=== PATIENT | male | born 1945 | race Caucasian/White ===

== ENCOUNTER 2019-04-17 12:59 | Inpatient (IN) | payer MEDICARE, OTHER ==
[~2019-04-17] VITALS: Ht 167.6 cm; Wt 70.8 kg
--- NOTE | 2019-04-17 13:22 | NUR ---
Fever since this morning. ALSO REPORTS CHILLS. DENIES SOB, DIZZINESS, WEAKNESS, N/V. DENIES PAIN. NO ACUTE DISTRESS NOTED. AOX4, TACHYCARDIC, AMBULATORY, RR EVEN AND UNLABORED ON RA. ON MONITOR AND READY FOR EVAL.
--- NOTE | 2019-04-17 13:26 | NUR ---
Boo bourne in [facility] - 04/17/19 at 1326 by JANICE 110-HAN.
[2019-04-17] MEDS ORDERED: ACETAMINOPHEN ES 500 MG TABLET ONE (13:27)
[2019-04-17] MEDS ORDERED: ACETAMINOPHEN ES 500 MG TABLET PO ONE (13:30)
[2019-04-17] MEDS ORDERED: IV NS 0.9% 1,000 ML BAG IV ONE (13:30)
[2019-04-17 13:50] LABS: BASOPHILS # (AUTO) 0.1 /CMM (0.0-0.2); BASOPHILS % (AUTO) 0.4 % (0.0-2.0); EOSINOPHILS % (AUTO) 0.1 % (0.0-6.0); HEMATOCRIT 34 % (39-51); HEMOGLOBIN 11.3 g/dL (13.5-17.5); LYMPHOCYTES # (AUTO) 0.8 /CMM (0.8-4.8); LYMPHOCYTES % (AUTO) 4.4 % (20.0-44.0); MEAN CORPUSCULAR HGB CONC 33 g/dl (31.0-36.0); MEAN CORPUSCULAR VOLUME 87 fL (80-96); MONOCYTES # (AUTO) 1.5 /CMM (0.1-1.30); MONOCYTES % (AUTO) 8.4 % (2.0-12.0); NEUTROPHILS # (AUTO) 15.9 /CMM (1.8-8.9); NEUTROPHILS % (AUTO) 86.7 % (43.0-81.0); PLATELET COUNT (AUTO) 296 /CMM (150-450); RED BLOOD CELL COUNT(AUTO) 3.93 MIL/uL (4.5-6.0); WHITE BLOOD COUNT (AUTO) 18.3 K/uL (4.3-11.0)
[2019-04-17 13:56] LABS: CALCIUM, SERUM 8.7 mg/dL (8.5-10.1); CARBON DIOXIDE 25 mmol/L (21-32); CHLORIDE 91 mmol/L (98-107); CREATININE 0.9 mg/dL (0.6-1.3); GLUCOSE 143 mg/dL (74-106); POTASSIUM 4.2 mmol/L (3.5-5.1); SODIUM SERUM 125 mmol/L (136-145); UREA NITROGEN, BLOOD 14 mg/dL (7-18)
[2019-04-17] MEDS ORDERED: LOSA50TA39 PO (14:01)
[2019-04-17] MEDS ORDERED: ASPI-1152 PO (14:01)
[2019-04-17] MEDS ORDERED: METO-358 PO (14:01)
[2019-04-17] MEDS ORDERED: LORA-259 PO (14:01)
[2019-04-17] MEDS ORDERED: ATOR40TA PO (14:01)
[2019-04-17] MEDS ORDERED: AMLO10TA7 PO (14:01)
[2019-04-17 14:02] LABS: ALANINE AMINOTRANSFERASE 44 U/L (12-78); ALBUMIN 2.7 g/dL (3.4-5.0); ALKALINE PHOSPHATASE 107 U/L (46-116); ASPARTATE AMINOTRANSFERASE 55 U/L (15-37); BILIRUBIN,DIRECT 0.1 mg/dL (0.0-0.2); BILIRUBIN,TOTAL 0.5 mg/dL (0.2-1.0); TOTAL PROTEIN, SERUM 7.3 g/dL (6.4-8.2)
--- NOTE | 2019-04-17 14:25 | NUR ---
URINE SENT TO STAT LAB
[2019-04-17 14:30] LABS: APPEARANCE,URINE Clear (CLEAR); BILIRUBIN,URINE Negative (NEGATIVE); BLOOD, URINE Large Ery/uL (NEGATIVE); COLOR,URINE Yellow (YELLOW); KETONES,URINE Negative (NEGATIVE); LEUKOCYTE ESTERASE ,URINE Negative (NEGATIVE); NITRITE, URINE Negative (NEGATIVE); PH,URINE 6.5 (5.0-8.0); PROTEIN,URINE >=300 mg/dl (NEGATIVE); UGLUCOSE Negative (NEGATIVE); UROBILINOGEN,URINE 0.2 EU/dL (0.2)
[2019-04-17] MEDS ORDERED: CEFTRIAXONE 1GM BAG (ER ONLY) 1 GM/50 ML PIGGYBACK IV ONE (14:30)
[2019-04-17] MEDS ORDERED: HYDROCODONE/APAP 5/325MG 1 EACH TABLET PO PRN (14:30)
[2019-04-17] MEDS ORDERED: MAGNESIUM HYDROXIDE 30 ML UDC PO PRN (14:30)
[2019-04-17] MEDS ORDERED: ZOLPIDEM TARTRATE 5 MG TABLET PO PRN (14:30)
[2019-04-17] MEDS ORDERED: Z GUARD REMEDY 2 OZ OINT TP PRN (14:30)
[2019-04-17] MEDS ORDERED: AZITHROMYCIN 500 MG in IV D5W 250 ML IV ONE (14:30)
[2019-04-17 14:31] LABS: BACTERIA,URINE Few /HPF (None Seen); HYALINE CASTS, URINE Few /LPF (None Seen); SQUAMOUS EPITHELIAL CELL,UR Rare /HPF (None Seen)
[2019-04-17] MEDS ORDERED: CEFTRIAXONE 1GM BAG (ER ONLY) 50 ML IV ONE (15:28)
--- NOTE | 2019-04-17 15:43 | NUR ---
PT RESTING COMFORTABLY IN BED. VSS. NO COMPLAINTS AT THIS TIME. WILL CONT TO MONITOR.
--- NOTE | 2019-04-17 16:46 | NUR ---
REPORT GIVEN TO MARQUIS REESE FOR 110, ANGEL HORVATH ADMITTING
--- NOTE | 2019-04-17 17:22 | NUR ---
PT TRANSFERRED TO UNIT VIA GURNEY PER ACLS PROTOCOL
[2019-04-17] MEDS ORDERED: IBUPROFEN 400 MG TABLET PO PRN (18:30)
[2019-04-17] MEDS ORDERED: LORAZEPAM 1 MG TABLET PO PRN (18:30)
[2019-04-17] MEDS ORDERED: IV NS 0.9% 500 ML IV ONE (18:30)
[2019-04-17] MEDS: ENSURE CLEAR 237 ML LIQUID (MIX BERRY) PO SCH (18:30)
--- NOTE | 2019-04-17 18:30 | NUR ---
RN ADMITTING NOTE: PATIENT WAS ADMITTED FROM HOME. ALERT X4, AMBULATORY. C/O SHIVERING, DX WITH LEUKOCYTOSIS. PATIENT IS ON TELE MONITOR READING SINUS TACHY 134. SKIN INTACT. PATIENT HAS PORT-A-CATH ON [facility]. HX OF HTN, LYMPHOMA (WAS ON CHEMO). PATIENT STATES HAS BEEN INCONTINENT SINCE HE STARTED SHIVERING. #20 ON RAC, C/D/I, FLUSHES WELL. FULL CODE. NKA. WILL CONTINUE TO MONITOR PATIENT AND IMPLEMENT COOLING MEASURES FOR TEMP OF 100.2. Addendum: 04/17/19 at 2007 by BARRERA HOUSTON RN SAFETY MEASURES IMPLEMENTED, BED IN LOWEST POSITION, LOCKED, SIDE RAILS UP X2, CALL LIGHT WITHIN REACH.
[2019-04-17 19:07] VITALS: BP 131/78
[2019-04-17 20:00] VITALS: BP 114/67
--- NOTE | 2019-04-17 20:07 | NUR ---
RN CLOSING NOTE: PATIENT IS RESTING IN BED, STILL SHIVERING. TEMP STILL ELEVATED. SAFETY MEASURES IMPLEMENTED, BED IN LOWEST POSITION, LOCKED, SIDE RAILS UP X2, CALL LIGHT WITHIN REACH. REPORT GIVEN TO REGISTRY NP RN FOR ELVIA.
[2019-04-17] MEDS: AZITHROMYCIN 250 MG TABLET PO SCH (21:06)
[2019-04-18] VITALS: BP 99/69
[2019-04-18] MEDS: IV NS 0.9% 1,000 ML IV PRN ×2 (03:01→14:43)
[2019-04-18 04:00] VITALS: BP 119/68
[2019-04-18 07:03] LABS: CALCIUM, SERUM 9.2 mg/dL (8.5-10.1); MAGNESIUM 1.7 mg/dL (1.8-2.4); PHOSPHORUS 3.7 mg/dL (2.5-4.9); POTASSIUM 4.2 mmol/L (3.5-5.1)
[2019-04-18 07:06] LABS: BASOPHILS % (AUTO) 0.2 % (0.0-2.0); EOSINOPHILS % (AUTO) 0.2 % (0.0-6.0); HEMATOCRIT 38 % (39-51); HEMOGLOBIN 12.4 g/dL (13.5-17.5); LYMPHOCYTES # (AUTO) 2.1 /CMM (0.8-4.8); LYMPHOCYTES % (AUTO) 10.4 % (20.0-44.0); MEAN CORPUSCULAR HGB CONC 33 g/dl (31.0-36.0); MEAN CORPUSCULAR VOLUME 88 fL (80-96); MONOCYTES # (AUTO) 1.8 /CMM (0.1-1.30); MONOCYTES % (AUTO) 8.6 % (2.0-12.0); NEUTROPHILS # (AUTO) 16.5 /CMM (1.8-8.9); NEUTROPHILS % (AUTO) 80.6 % (43.0-81.0); PLATELET COUNT (AUTO) 282 /CMM (150-450); RED BLOOD CELL COUNT(AUTO) 4.27 MIL/uL (4.5-6.0); WHITE BLOOD COUNT (AUTO) 20.5 K/uL (4.3-11.0)
[2019-04-18 08:00] VITALS: BP_SYST 102; BP_SYST 95; BP_DIAS 51; BP_DIAS 59
[2019-04-18] MEDS: ENSURE CLEAR 237 ML LIQUID (MIX BERRY) PO SCH ×2 (08:06→16:24)
[2019-04-18] MEDS: ASPIRIN EC 81 MG TABLET.DR PO SCH (09:05)
[2019-04-18] MEDS: ATORVASTATIN 40 MG TABLET PO SCH (09:05)
--- NOTE | 2019-04-18 09:48 | NUR ---
photographic equipment mechanic Notes Received patient from shift supervisor film processing. Patient is in bed resting comfortably. No signs of distress. Patient is alert and oriented x3. Will continue to monitor throughout shift. Bed in lowest position, call light within reach, all measures taken to ensure client safety.
[2019-04-18] MEDS: Magnesium 1GM/D5W 100ML PREMIX 100 ML IV SCH ×2 (10:16→11:34)
[2019-04-18] MEDS: CEFTRIAXONE 1 G in IV D5W 50 ML IV SCH (14:31)
--- NOTE | 2019-04-18 15:00 | NUR ---
RN NOTE: Henrietta Montgomery NP was made aware of the blood culture prelim result of gram + cocci in clusters and current IV antibiotics (Ceftriaxone and Zithromax) were discussed with CRANBERRY SORTER. Per Henrietta Montgomery NP she wanted to add Vancomycin to the current IV antibiotic regimen. Order, noted and carried out. Primary nurse Hardy was made aware.
[2019-04-18 16:00] VITALS: BP 106/63
[2019-04-18] MEDS ORDERED: FEE PK DOSING 1 MIN EA MC ONE (16:42)
[2019-04-18] MEDS: VANCOMYCIN 1 GM in IV D5W 250 ML IV SCH (17:33)
--- NOTE | 2019-04-18 19:16 | NUR ---
MS/RN CLOSING NOTES PATIENT CONTINUES TO REMAIN IN STABLE CONDITION THROUGHOUT THE SHIFT. PROVIDED COMFORT AND SAFETY. PATIENT ABLE TO TOLERATE MEALS AND MEDS WELL. IV ACCESS INTACT AND PATENT. FLUSHING WELL. NO S/S OF INFECTION OR INFILTRATION. HOB ELEVATED AT ALL TIMES. NO ADVERSE REACTIONS AT THIS TIME. ALL NEEDS ANTICIPATED. CALL LIGHT WITHIN REACHED. BED LOCKED AND IN LOWEST POSITION. SAFETY MAINTAINED. ENDORSED TO PM NURSE FOR ELVIA.
[2019-04-18 20:00] VITALS: BP 117/62
[2019-04-18 20:27] VITALS: BP 117/67
[2019-04-18] MEDS: ACETAMINOPHEN 325 MG TABLET PO PRN (20:37)
[2019-04-18] MEDS: AZITHROMYCIN 250 MG TABLET PO SCH (20:38)
[2019-04-19] MEDS: IV NS 0.9% 1,000 ML IV PRN ×2 (00:20→08:58)
[2019-04-19 04:00] VITALS: BP 106/68
--- NOTE | 2019-04-19 04:24 | NUR ---
REMAINS IN STABLE CONDITION. ALERT AND ORIENTATED. USED THE URINAL THRU THE NIGHT. VOIDING 1300ML. NOTED WHEN HE IS A SLEPP [address] HIM ON 02 2 LITERS N/C AND SAT ^ TO 92 94%. iNCENTIVE SPIR. TEACHING DONE. AT THIS TIME UP TO 500 ML, NEEDS TO BE ENCOURAGED AND REMINDED TO DO. QUIET UNEVENTFUL NIGHT.
[2019-04-19 05:01] VITALS: BP 106/68
[2019-04-19] MEDS: VANCOMYCIN 1 GM in IV D5W 250 ML IV SCH ×2 (05:55→17:45)
[2019-04-19 07:15] LABS: BASOPHILS % (AUTO) 0.3 % (0.0-2.0); EOSINOPHILS % (AUTO) 0.4 % (0.0-6.0); HEMATOCRIT 32 % (39-51); HEMOGLOBIN 10.5 g/dL (13.5-17.5); LYMPHOCYTES # (AUTO) 0.7 /CMM (0.8-4.8); LYMPHOCYTES % (AUTO) 5.9 % (20.0-44.0); MEAN CORPUSCULAR HGB CONC 33 g/dl (31.0-36.0); MEAN CORPUSCULAR VOLUME 86 fL (80-96); MONOCYTES # (AUTO) 1.3 /CMM (0.1-1.30); MONOCYTES % (AUTO) 10.6 % (2.0-12.0); NEUTROPHILS # (AUTO) 10.2 /CMM (1.8-8.9); NEUTROPHILS % (AUTO) 82.8 % (43.0-81.0); PLATELET COUNT (AUTO) 236 /CMM (150-450); RED BLOOD CELL COUNT(AUTO) 3.65 MIL/uL (4.5-6.0); WHITE BLOOD COUNT (AUTO) 12.3 K/uL (4.3-11.0)
--- NOTE | 2019-04-19 07:30 | NUR ---
INITIAL PATIENT IN BED RESTING QUIETLY ALERT AND ORIENTED X 4. NO NOTED DISTRESS AT THIS TIME. PATIENT ABLE TO TOLERATE MEALS AND MEDS WELL. PT HAS 20 G PIV IN LEFT HAND IV ACCESS INTACT AND PATENT. FLUSHING WELL. NO S/S OF INFECTION OR INFILTRATION. HOB ELEVATED AT ALL TIMES. NO ADVERSE REACTIONS AT THIS TIME. BED IN LOWEST POSITION. SAFETY MAINTAINED. WILL CONTINUE TO MONITOR.
--- NOTE | 2019-04-19 07:30 | NUR ---
INITIAL PT RESTING QUIETLY IN BED CALL LIGHT NEXT TO PT NO DISTRESS NOTED ALERT AND ORIENTED X 4. PT ABLE TO EXPRESS NEEDS WANTING SUCTION CATH TO REMOVE SPUTUM FROM COUGH. PT HAS 20G SL IN LEFTV HAND FLUSHES WELL NO PAIN SWELLING OR REDNESS. WILL CONTINUE TO MONITOR. PT HAS LEFT FOOT WITH WOUND DRESSING. Addendum: 04/19/19 at 0958 by DENG SANDHU RN DELETE NOTE
[2019-04-19 07:34] LABS: CALCIUM, SERUM 8.2 mg/dL (8.5-10.1); CREATININE 0.7 mg/dL (0.6-1.3); MAGNESIUM 1.7 mg/dL (1.8-2.4); PHOSPHORUS 2.3 mg/dL (2.5-4.9); POTASSIUM 3.3 mmol/L (3.5-5.1)
[2019-04-19 07:37] LABS: THYROID STIMULATING HORMONE 1.547 uIU/mL (0.358-3.74); URIC ACID 3.5 mg/dL (2.6-7.2)
[2019-04-19 08:00] VITALS: BP 124/68
[2019-04-19] MEDS: ENSURE CLEAR 237 ML LIQUID (MIX BERRY) PO SCH ×2 (08:46→17:43)
[2019-04-19] MEDS: ATORVASTATIN 40 MG TABLET PO SCH (08:49)
[2019-04-19] MEDS: ASPIRIN EC 81 MG TABLET.DR PO SCH (08:50)
--- NOTE | 2019-04-19 09:51 | NUR ---
LABS TEXT ANGEL HORVATH FOR MICROBIOLOGY RESULTS IN THE BLOOD PT POSITIVE FOR MRSA
[2019-04-19 12:00] VITALS: BP 124/68
[2019-04-19] MEDS ORDERED: POTASSIUM CHLORIDE 20 MEQ TAB.PRT.SR PO SCH (12:00)
[2019-04-19] MEDS: Magnesium 1GM/D5W 100ML PREMIX 100 ML IV SCH ×2 (12:13→13:03)
[2019-04-19] MEDS ORDERED: K PHOS NEUTRAL 250 MG TABLET PO ONE (12:30)
[2019-04-19] MEDS: CEFTRIAXONE 1 G in IV D5W 50 ML IV SCH (15:42)
[2019-04-19 16:00] VITALS: BP 121/68
--- NOTE | 2019-04-19 18:16 | NUR ---
CLOSING PATIENT CONTINUES TO REMAIN IN STABLE CONDITION THROUGHOUT THE SHIFT. PROVIDED COMFORT AND SAFETY. PATIENT ABLE TO TOLERATE MEALS AND MEDS WELL. IV ACCESS INTACT AND PATENT. FLUSHING WELL. NO S/S OF INFECTION OR INFILTRATION. HOB ELEVATED AT ALL TIMES. NO ADVERSE REACTIONS AT THIS TIME. ALL NEEDS ANTICIPATED. CALL LIGHT WITHIN REACHED. BED LOCKED AND IN LOWEST POSITION. SAFETY MAINTAINED. ENDORSED TO PM NURSE FOR CONTINUITY OF CARE.
--- NOTE | 2019-04-19 19:20 | NUR ---
RN OPENING NOTE PATIENT AWAKE AND ALERT X 4. IV TO LEFT HAND PATENT AND INTACT. FLUSHING WELL. NO S/S OF INFECTION OR INFILTRATION. HOB ELEVATED. CALL LIGHT WITHIN REACHED. BED LOCKED AND IN LOWEST POSITION. SAFETY MEASURES IN PLACE. WILL CONTINUE TO MONITOR.
[2019-04-19 20:00] VITALS: BP 125/72
[2019-04-19] MEDS: MUPIROCIN OINT 2% 22 GM TUBE SCH (21:18)
[2019-04-20] MEDS: VANCOMYCIN 1 GM in IV D5W 250 ML IV SCH ×2 (06:22→17:16)
[2019-04-20 06:23] LABS: BASOPHILS % (AUTO) 0.3 % (0.0-2.0); EOSINOPHILS % (AUTO) 0.7 % (0.0-6.0); HEMATOCRIT 31 % (39-51); HEMOGLOBIN 10.4 g/dL (13.5-17.5); LYMPHOCYTES # (AUTO) 0.8 /CMM (0.8-4.8); LYMPHOCYTES % (AUTO) 9.3 % (20.0-44.0); MEAN CORPUSCULAR HGB CONC 34 g/dl (31.0-36.0); MEAN CORPUSCULAR VOLUME 85 fL (80-96); MONOCYTES # (AUTO) 1.2 /CMM (0.1-1.30); MONOCYTES % (AUTO) 12.9 % (2.0-12.0); NEUTROPHILS # (AUTO) 6.9 /CMM (1.8-8.9); NEUTROPHILS % (AUTO) 76.8 % (43.0-81.0); PLATELET COUNT (AUTO) 261 /CMM (150-450); RED BLOOD CELL COUNT(AUTO) 3.59 MIL/uL (4.5-6.0)
[2019-04-20 06:44] LABS: CALCIUM, SERUM 8.2 mg/dL (8.5-10.1); CREATININE 0.8 mg/dL (0.6-1.3); MAGNESIUM 1.7 mg/dL (1.8-2.4); PHOSPHORUS 3.4 mg/dL (2.5-4.9)
[2019-04-20 06:47] LABS: POTASSIUM 2.8 mmol/L (3.5-5.1)
--- NOTE | 2019-04-20 07:06 | NUR ---
RN CLOSING NOTE PATIENT ASLEEP IN BED IV TO LEFT HAND PATENT AND INTACT. NS INFUSING AT 40 ML/HR. NO S/S OF INFECTION OR INFILTRATION. HOB ELEVATED. CALL LIGHT WITHIN REACHED. BED LOCKED AND IN LOWEST POSITION. SAFETY MEASURES IN PLACE. PT KEPT CLEAN AND DRY, WILL ENDORSE TO AM NURSE FOR ELVIA
[2019-04-20] MEDS ORDERED: POTASSIUM CHLORIDE 20 MEQ TAB.PRT.SR PO ONE (07:30)
[2019-04-20] MEDS ORDERED: Magnesium 1GM/D5W 100ML PREMIX 50 ML IV SCH (07:30)
[2019-04-20 08:00] VITALS: BP 126/75
[2019-04-20] MEDS: ENSURE CLEAR 237 ML LIQUID (MIX BERRY) PO SCH ×2 (08:00→17:17)
[2019-04-20] MEDS: ASPIRIN EC 81 MG TABLET.DR PO SCH (09:21)
[2019-04-20] MEDS: ATORVASTATIN 40 MG TABLET PO SCH (09:21)
[2019-04-20] MEDS: MUPIROCIN OINT 2% 22 GM TUBE SCH ×2 (09:21→20:23)
[2019-04-20 12:00] VITALS: BP_SYST 121; BP_SYST 124; BP_DIAS 64; BP_DIAS 74
[2019-04-20] MEDS: CEFTRIAXONE 1 G in IV D5W 50 ML IV SCH (15:20)
[2019-04-20 16:00] VITALS: BP_SYST 120; BP_SYST 124; BP_DIAS 74; BP_DIAS 76
--- NOTE | 2019-04-20 17:28 | NUR ---
alert, oriented, afebrile all shift, denied chills, on room air , sat 92-93%, on bedrest with continuation of double abx, ( vanco, rocephin ivpb). NO visitor during shift, noted. K+ today 2.8, got replaced with 40meq po K Mg 1.7, one gram mgso4 ivpb given NA 133, continues with NS at 40cc per hour.
--- NOTE | 2019-04-20 19:42 | NUR ---
internet sales consultant: received report from advertising internship at 1915. pt a/o x3 on 2l oxygen via nc respirations even and unlabored. pt has left wrist g 20 patent and flushing well, infusing with ns at 40ml/hr. pt isolation mrsa nares and blood mrsa, ppe utilized. urinal within reach. safety precautions for fall initiated, call light in reach, will continue monitoring pt.
[2019-04-20 20:00] VITALS: BP 146/80
[2019-04-20 20:30] VITALS: BP 146/80
[2019-04-21 04:00] VITALS: BP 133/80
[2019-04-21] MEDS: IV NS 0.9% 1,000 ML IV PRN ×2 (04:27→18:08)
[2019-04-21] MEDS: VANCOMYCIN 1 GM in IV D5W 250 ML IV SCH ×2 (05:11→18:06)
--- NOTE | 2019-04-21 06:43 | NUR ---
end of shift report: pt remains on 2l oxygen via nc, denies any sob, denies any pain or discomfort throughout the shift. iv acces remains patent and flushing well, infusing with ns at 40ml/hr. bmp scheduled for today, per pulmo recommending chest ct to differentiate and stage colon ca, continue iv atb per id, and oncology dr varela per outpt oncology follow up. ppe utilized for isolation mrsa nares and blood. vs remains stable, needs attended. safety precautions for fall remains engaged, call light in reach, will endorse to day rn for continuity of care.
[2019-04-21 07:04] LABS: CALCIUM, SERUM 8.1 mg/dL (8.5-10.1); CREATININE 1.1 mg/dL (0.6-1.3); POTASSIUM 3.4 mmol/L (3.5-5.1)
--- NOTE | 2019-04-21 07:25 | NUR ---
RN OPENING NOTE: RECEIVED PATIENT IN BED. AWAKE, ALERT AND ORIENTED X4. ON CONT. O2 VIA NC @ 2LPM AND TOLERATING WELL. PATIENT WITH NO SOB NOTED. NOT IN RESPIRATORY DISTRESS. ON CONTACT ISOLATION, PRECAUTIONS OBSERVED. IV SITE CLEAN, DRY, PATENT AND INTACT. NO PAIN REPORTED. CALL LIGHT IN REACH. BED LOCKED, LOW AND AT SEMI-VILLELA'S POSITION. SIDE RAILS UP X3. SAFETY ENSURED AND OBSERVED. WILL CONTINUE TO MONITOR.
[2019-04-21 08:00] VITALS: BP 134/86
[2019-04-21] MEDS: ASPIRIN EC 81 MG TABLET.DR PO SCH (10:26)
[2019-04-21] MEDS: ENSURE CLEAR 237 ML LIQUID (MIX BERRY) PO SCH ×2 (10:26→18:06)
[2019-04-21] MEDS: ATORVASTATIN 40 MG TABLET PO SCH (10:26)
[2019-04-21] MEDS: MUPIROCIN OINT 2% 22 GM TUBE SCH ×2 (10:26→20:00)
[2019-04-21] MEDS ORDERED: POTASSIUM CHLORIDE 20 MEQ TAB.PRT.SR PO SCH (11:00)
[2019-04-21 16:00] VITALS: BP 145/90
[2019-04-21] MEDS: CEFTRIAXONE 1 G in IV D5W 50 ML IV SCH (16:17)
--- NOTE | 2019-04-21 19:00 | NUR ---
RN medsurg opening notes Received Pt from morning nurse. Pt is alert and orientedX3. Pt is sitting in bed comfortably watching TV. Respiration is normal in 2 L NC. No SOB. No S/S of distress noted. IV sites at L hand# 20 is clean, intact, and patent. Contact precautions is maintained for MRSA. Safety precautions is maintained. Instructed to call. Bed at low position, brakes locked, side rails upX3, HOB elevated and call light is within reach. Will continue to monitor.
--- NOTE | 2019-04-21 19:25 | NUR ---
RN CLOSING NOTE PATIENT IN BED. AWAKE, ALERT AND ORIENTED X4. ON CONT. O2 VIA NC @ 2LPM AND TOLERATING WELL. DR. WOODS SAW PATIENT EARLIER AND SHORTNESS OF BREATH WAS REPORTED BY PATIENT. ORDER FOR CXR AND BNP STAT ORDERED. WITH ORDERS AND RESULTS TO BE RELAYED TO PRIMARY PROVIDER. ANGEL HORVATH DNP MADE AWARE OF ORDERS. ACKNOWLEDGED AND ACCEPTED. IV FLUID TO BE HELD. CURRENTLY, PATIENT WITH NO SOB NOTED AND NOT IN RESPIRATORY DISTRESS. SATURATION >92%. ON CONTACT ISOLATION, PRECAUTIONS OBSERVED. IV SITE CLEAN, DRY, PATENT AND INTACT. POTASSIUM WAS REPLACED EARLIER ON SHIFT. NO PAIN REPORTED. CALL LIGHT IN REACH. BED LOCKED, LOW AND AT SEMI-VILLELA'S POSITION. SIDE RAILS UP X3. SAFETY ENSURED AND OBSERVED. WILL INFORMED MARQUIS HUGGINS TO RELAY RESULTS OF STAT XRAY AND BNP TO PRIMARY PROVIDER WHEN AVAILABLE. ENDORSED TO ONCOMING SHIFT FOR ELVIA.
[2019-04-21 20:00] VITALS: BP 135/83
[2019-04-21] MEDS: RIFAMPIN 300 MG CAPSULE PO SCH (20:00)
[2019-04-22 04:00] VITALS: BP 143/80
[2019-04-22] MEDS: VANCOMYCIN 1 GM in IV D5W 250 ML IV SCH ×2 (05:01→17:54)
--- NOTE | 2019-04-22 06:38 | NUR ---
RN medsurg closing notes Pt is resting in bed comfortably. Pt is alert and orientedX3. Respiration is normal in 2 L NC. No SOB. No S/S of distress noted. IV sites at L hand # 20 is clean, intact, patent and SL. VS is stable. Routine meds were given as ordered. Contact precautions is maintained. Kept Pt clean, dry and comfortable. All needs met and attended. Safety precautions is maintained. Bed at low position, brakes locked, side rails up, HOB elevated, and call light is within reach. Will endorse to morning nurse for ELVIA.
[2019-04-22 06:42] LABS: CARBON DIOXIDE 18 mmol/L (21-32); CHLORIDE 99 mmol/L (98-107); CREATININE 1.8 mg/dL (0.6-1.3); GLUCOSE 82 mg/dL (74-106); POTASSIUM 3.7 mmol/L (3.5-5.1); SODIUM SERUM 130 mmol/L (136-145); UREA NITROGEN, BLOOD 24 mg/dL (7-18)
[2019-04-22 07:30] VITALS: BP 145/92
--- NOTE | 2019-04-22 07:30 | NUR ---
RN OPENING NOTE: RECEIVED PATIENT IN BED THIS MORNING. NO ACUTE DISTRESS NOTED. ALERT X4. O2 VIA NC @ 2LPM AND TOLERATING WELL. NO SIGNS OF RESPIRATORY DISTRESS NOTED. ON CONTACT ISOLATION FOR MRSA OF NARES AND BLOOD. PATIENT HAS #20 ON L HAND, FLUSHING WELL, C/D/I, NO SIGNS OF COMPLICATION NOTED. PERM-A-CATH ON RUC, NO SIGNS OF COMPLICATIONS NOTED. SAFETY MEASURES IMPLEMENTED, BED IN LOWEST POSITION, LOCKED, SIDE RAILS UP X2, CALL LIGHT WITHIN REACH. WILL CONTINUE TO MONITOR PATIENT FOR ANY CHANGES.
[2019-04-22 08:00] VITALS: BP 145/92
[2019-04-22] MEDS: ATORVASTATIN 40 MG TABLET PO SCH (08:05)
[2019-04-22] MEDS: ASPIRIN EC 81 MG TABLET.DR PO SCH (08:05)
[2019-04-22] MEDS: RIFAMPIN 300 MG CAPSULE PO SCH (08:05)
[2019-04-22] MEDS: ENSURE CLEAR 237 ML LIQUID (MIX BERRY) PO SCH ×2 (08:06→17:20)
[2019-04-22] MEDS: MUPIROCIN OINT 2% 22 GM TUBE SCH ×2 (08:06→21:23)
[2019-04-22] MEDS: IV NS 0.9% 1,000 ML IV PRN (13:42)
[2019-04-22] MEDS: CEFTRIAXONE 1 G in IV D5W 50 ML IV SCH (15:25)
[2019-04-22 16:00] VITALS: BP 145/92
--- NOTE | 2019-04-22 17:55 | NUR ---
PER RX, HOLD VANCO, TROUGH 35
--- NOTE | 2019-04-22 19:35 | NUR ---
MS RN OPENING NOTE, RECEIVED PATIENT IN BED RESTINGSD. ALERT X4. O2 VIA NC @ 2LPM AND TOLERATING WELL. NO ACUTE DISTRESS NOTED, NO SIGNS OF RESPIRATORY DISTRESS NOTED. ON CONTACT ISOLATION FOR MRSA OF NARES AND BLOOD. IV ON L HAND #20 NS 100ML/HR, FLUSHING WELL, NO SIGNS OF COMPLICATION NOTED. PERM-A-CATH ON RUC, NO SIGNS OF COMPLICATIONS NOTED. SAFETY MEASURES IMPLEMENTED, BED IN LOWE/LOCKED POSITION, SIDE RAILS UP X2, CALL LIGHT WITHIN REACH. WILL CONTINUE TO MONITOR.
--- NOTE | 2019-04-22 19:42 | NUR ---
RN CLOSING NOTE: PATIENT IS RESTING IN BED. NO ACUTE DISTRESS NOTED. ALERT X4. O2 VIA NC @ 2LPM AND TOLERATING WELL. NO SIGNS OF RESPIRATORY DISTRESS NOTED. ON CONTACT ISOLATION FOR MRSA OF NARES AND BLOOD. PATIENT HAS #20 ON L HAND, FLUSHING WELL, C/D/I, NO SIGNS OF COMPLICATION NOTED. PERM-A-CATH ON RUC, NO SIGNS OF COMPLICATIONS NOTED. SAFETY MEASURES IMPLEMENTED, BED IN LOWEST POSITION, LOCKED, SIDE RAILS UP X2, CALL LIGHT WITHIN REACH. ENDORSED TO FOLLOWING SHIFT FOR CONTINUITY OF CARE, TO HOLD VANCO PRE PHARMACY AND TO NOTIFY DIVISIONAL MERCHANDISING MANAGER OF BNP FINDINGS PER DR JENSEN.
[2019-04-22 20:00] VITALS: BP 141/88
[2019-04-23 04:00] VITALS: BP 147/88
[2019-04-23 06:23] LABS: BASOPHILS % (AUTO) 0.4 % (0.0-2.0); HEMATOCRIT 33 % (39-51); LYMPHOCYTES # (AUTO) 0.7 /CMM (0.8-4.8); LYMPHOCYTES % (AUTO) 6.5 % (20.0-44.0); MEAN CORPUSCULAR HGB CONC 34 g/dl (31.0-36.0); MEAN CORPUSCULAR VOLUME 86 fL (80-96); MONOCYTES # (AUTO) 1.2 /CMM (0.1-1.30); MONOCYTES % (AUTO) 11.1 % (2.0-12.0); PLATELET COUNT (AUTO) 280 /CMM (150-450); RED BLOOD CELL COUNT(AUTO) 3.83 MIL/uL (4.5-6.0); WHITE BLOOD COUNT (AUTO) 11.2 K/uL (4.3-11.0)
[2019-04-23 06:47] LABS: CALCIUM, SERUM 7.8 mg/dL (8.5-10.1); CARBON DIOXIDE 20 mmol/L (21-32); CHLORIDE 98 mmol/L (98-107); CREATININE 2.8 mg/dL (0.6-1.3); GLUCOSE 86 mg/dL (74-106); POTASSIUM 3.7 mmol/L (3.5-5.1); SODIUM SERUM 131 mmol/L (136-145); UREA NITROGEN, BLOOD 27 mg/dL (7-18)
--- NOTE | 2019-04-23 07:35 | NUR ---
RN OPENING NOTES RECEIVED PATIENT IN BED, A/O X 4. VERBALLY RESPONSIVE AND ABLE TO MAKE NEEDS KNOWN. DENIES ANY PAIN OR DISCOMFORT AT THE MOMENT. ON NASAL CANNULA @2L SATURATING WELL. NO SOB NOTED. IV ACCESS ON L HAND #20 SALINE LOCKED, INTACT, PATENT AND FLUSHED WELL. PORT-A-CATH ON R CHEST WALL. NO SIGNS OF INFECTIONS NOTED. SAFETY MEASURES IN PLACED, CALL LIGHT WITHIN REACH. WILL CONTINUE TO MONITOR
--- NOTE | 2019-04-23 07:39 | NUR ---
MS RN CLOSING NOTE, PATIENT IS RESTING IN BED. NO ACUTE DISTRESS NOTED. ALERT X4. O2 VIA NC @ 2LPM AND TOLERATING WELL. NO SIGNS OF RESPIRATORY DISTRESS NOTED. ON CONTACT ISOLATION FOR MRSA OF NARES AND BLOOD. PATIENT HAS #20 ON L HAND, FLUSHING WELL, C/D/I, NO SIGNS OF COMPLICATION NOTED. PERM-A-CATH ON RUC, NO SIGNS OF COMPLICATIONS NOTED. SAFETY MEASURES IMPLEMENTED, BED IN LOWEST POSITION, LOCKED, SIDE RAILS UP X2, CALL LIGHT WITHIN REACH. ENDORSED TO AM SHIFT FOR CONTINUITY OF CARE, TO HOLD VANCO PRE PHARMACY AND TO NOTIFY TILE MECHANIC HELPER OF BNP FINDINGS PER DR JENSEN.
[2019-04-23 08:00] VITALS: BP 149/83
[2019-04-23 08:02] LABS: IRON, SERUM 24 ug/dl (50-175); TOTAL IRON BINDING CAPACITY 124 ug/dl (250-450)
[2019-04-23] MEDS: RIFAMPIN 300 MG CAPSULE PO SCH (08:24)
[2019-04-23] MEDS: ASPIRIN EC 81 MG TABLET.DR PO SCH (08:24)
[2019-04-23] MEDS: ENSURE CLEAR 237 ML LIQUID (MIX BERRY) PO SCH ×2 (08:25→17:00)
[2019-04-23] MEDS: MUPIROCIN OINT 2% 22 GM TUBE SCH ×2 (08:26→20:42)
[2019-04-23 08:59] VITALS: BP 149/83
[2019-04-23 09:52] LABS: FERRITIN 352 ng/mL (8-388)
[2019-04-23] MEDS ORDERED: VANCOMYCIN 1 GM in IV D5W 250 ML IV SCH (12:00)
--- NOTE | 2019-04-23 12:22 | NUR ---
MARQUIS NOTES CALLED THE OFFICE OF SARBJIT SESAY REGARDING THE RESULT OF VANCO TROUGH 33. Addendum: 04/23/19 at 1227 by TRACY BUSTOS RN AWAITING CALL BACK FROM SARBJIT SESAY NP
--- NOTE | 2019-04-23 12:56 | NUR ---
RN NOTES PER PAPITO AT THE PHARMACY TO HOLD AND NOT GIVE THE DOSE OF VANCO
[2019-04-23 16:00] VITALS: BP 146/91
[2019-04-23 17:20] VITALS: BP 146/91
[2019-04-23 20:00] VITALS: BP 142/87
--- NOTE | 2019-04-23 20:06 | NUR ---
RN CLOSING NOTES PATIENT IN BED, A/O X4. VERBALLY RESPONSIVE AND ABLE TO MAKE NEEDS KNOWN. DENIES ANY PAIN AT THE MOMENT. IN NO ACUTE DISTRESS NOTED. ON NASAL CANNULA @2L SATURATING WELL. KEPT CLEAN AND DRY, ALL NEEDS MET. SAFETY MEASURE IN PLACED, CALL LIGHT WITHIN REACH. ENDORSED TO PM RN FOR ELVIA.
--- NOTE | 2019-04-23 20:24 | NUR ---
RN NOTES CALLED LAB AND SPOKE WITH JORGE, THAT URINE SAMPLE IS READY FOR CUSTOMER SUCCESS INTERN.
[2019-04-23 22:31] LABS: APPEARANCE,URINE CLOUDY (CLEAR); BILIRUBIN,URINE SMALL (NEGATIVE); BLOOD, URINE LARGE Ery/uL (NEGATIVE); COLOR,URINE ORANGE (YELLOW); KETONES,URINE NEGATIVE (NEGATIVE); LEUKOCYTE ESTERASE ,URINE NEGATIVE (NEGATIVE); NITRITE, URINE POSITIVE (NEGATIVE); PROTEIN,URINE >=300 mg/dl (NEGATIVE); UGLUCOSE NEGATIVE (NEGATIVE); UROBILINOGEN,URINE 0.2 EU/dL (0.2)
[2019-04-23 22:37] LABS: BACTERIA,URINE Moderate /HPF (None Seen); RBC,URINE 51-80 /HPF (0-2); SQUAMOUS EPITHELIAL CELL,UR Rare /HPF (None Seen)
[2019-04-23] MEDS: IV NS 0.9% 1,000 ML IV PRN (22:57)
[2019-04-23 23:29] LABS: EOSINOPHIL,URINE None Seen
[2019-04-23 23:33] LABS: URINE TOTAL PROTEIN 1046.2 mg/dL (0-11.9)
[2019-04-24] VITALS: BP 143/89
[2019-04-24 06:45] LABS: BASOPHILS # (AUTO) 0.1 /CMM (0.0-0.2); BASOPHILS % (AUTO) 0.4 % (0.0-2.0); EOSINOPHILS % (AUTO) 2.1 % (0.0-6.0); HEMATOCRIT 33 % (39-51); HEMOGLOBIN 10.9 g/dL (13.5-17.5); LYMPHOCYTES # (AUTO) 0.9 /CMM (0.8-4.8); LYMPHOCYTES % (AUTO) 5.6 % (20.0-44.0); MEAN CORPUSCULAR HGB CONC 33 g/dl (31.0-36.0); MEAN CORPUSCULAR VOLUME 87 fL (80-96); MONOCYTES # (AUTO) 1.1 /CMM (0.1-1.30); MONOCYTES % (AUTO) 6.9 % (2.0-12.0); NEUTROPHILS # (AUTO) 13.4 /CMM (1.8-8.9); PLATELET COUNT (AUTO) 337 /CMM (150-450); RED BLOOD CELL COUNT(AUTO) 3.76 MIL/uL (4.5-6.0); WHITE BLOOD COUNT (AUTO) 15.8 K/uL (4.3-11.0)
[2019-04-24 06:59] LABS: CALCIUM, SERUM 8.2 mg/dL (8.5-10.1); CARBON DIOXIDE 16 mmol/L (21-32); CHLORIDE 99 mmol/L (98-107); CREATININE 3.8 mg/dL (0.6-1.3); GLUCOSE 61 mg/dL (74-106); POTASSIUM 4.1 mmol/L (3.5-5.1); SODIUM SERUM 133 mmol/L (136-145); UREA NITROGEN, BLOOD 37 mg/dL (7-18)
--- NOTE | 2019-04-24 07:13 | NUR ---
RN CLOSING NOTE: PATIENT IS RESTING IN BED AWAKE . NO ACUTE DISTRESS NOTED. ALERT X4. O2 VIA NC @ 2LPM AND TOLERATING WELL. NO SIGNS OF RESPIRATORY DISTRESS NOTED. ON CONTACT ISOLATION FOR MRSA OF NARES AND BLOOD. PATIENT HAS #20 ON L HAND, WITH ONGOING IVF NS 1L @ 100ML/HR , C/D/I, NO SIGNS OF COMPLICATION NOTED. PERM-A-CATH ON RUC, NO SIGNS OF COMPLICATIONS NOTED. SAFETY MEASURES IMPLEMENTED, BED IN LOWEST POSITION, LOCKED, SIDE RAILS UP X2, CALL LIGHT WITHIN REACH. ENDORSED TO FOLLOWING SHIFT FOR CONTINUITY OF CARE, VANCO IS STILL HOLD...
[2019-04-24] MEDS: IV NS 0.9% 1,000 ML IV PRN ×2 (07:19→19:03)
--- NOTE | 2019-04-24 07:30 | NUR ---
MS RN OPENING NOTE RECEIVED BEDSIDE REPORT. PT AWAKE IN BED, ALERT AND ORIENTED X 4, ON 02 VIA NC 2L/MIN, SATURATING WELL, RESPIRATIONS EVEN AND UNLABORED, NO SIGNS OF RESPIRATORY DISTRESS NOTED. ON CONTACT ISOLATION FOR MRSA OF NARES AND BLOOD. IV SITE ON LEFT HAND G20 INTACT, PATENT, NS INFUSING AT 100CC/HR, NO SIGNS OF INFILTRATION NOTED. RIGHT CHEST WALL DIAZ CATH INTACT, COVERED WITH CLEAN DRESSING. SAFETY MEASURES IMPLEMENTED, BED IN LOWEST POSITION, LOCKED, SIDE RAILS UP X2, CALL LIGHT WITHIN REACH. INTRODUCED SELF TO PT AND DISCUSSED PLAN OF CARE.
[2019-04-24 08:00] VITALS: BP 153/93
[2019-04-24] MEDS: ENSURE CLEAR 237 ML LIQUID (MIX BERRY) PO SCH ×2 (08:01→16:49)
[2019-04-24] MEDS: MUPIROCIN OINT 2% 22 GM TUBE SCH ×2 (08:01→21:03)
[2019-04-24] MEDS: ASPIRIN EC 81 MG TABLET.DR PO SCH (08:12)
[2019-04-24] MEDS: RIFAMPIN 300 MG CAPSULE PO SCH (08:12)
[2019-04-24 11:21] LABS: APPEARANCE,URINE CLOUDY (CLEAR); BILIRUBIN,URINE MODERATE (NEGATIVE); BLOOD, URINE LARGE Ery/uL (NEGATIVE); COLOR,URINE YELLOW (YELLOW); KETONES,URINE NEGATIVE (NEGATIVE); LEUKOCYTE ESTERASE ,URINE NEGATIVE (NEGATIVE); NITRITE, URINE NEGATIVE (NEGATIVE); PH,URINE 5.5 (5.0-8.0); PROTEIN,URINE >=300 mg/dl (NEGATIVE); UGLUCOSE NEGATIVE (NEGATIVE); UROBILINOGEN,URINE 0.2 EU/dL (0.2)
[2019-04-24 11:35] LABS: CREATININE, URINE 242.3 MG/DL (30.0-125.0)
[2019-04-24 11:50] LABS: URINE TOTAL PROTEIN 1265.6 mg/dL (0-11.9)
[2019-04-24 12:55] LABS: BACTERIA,URINE Few /HPF (None Seen); RBC,URINE TOO NUMEROUS TO COUN /HPF (0-2); SQUAMOUS EPITHELIAL CELL,UR Few /HPF (None Seen)
[2019-04-24 12:56] LABS: FINE GRANULAR CASTS,URINE Few /LPF (None Seen); URINE AMORPHOUS URATE Many /HPF (None Seen)
[2019-04-24 13:12] LABS: EOSINOPHIL,URINE None Seen
[2019-04-24] MEDS: ONDANSETRON HCL/PF 4 MG/2 ML VIAL IVP PRN ×2 (14:36→20:43)
[2019-04-24 16:00] VITALS: BP 143/86
[2019-04-24] MEDS ORDERED: CEFEPIME 2 GM in IV D5W 50 ML IV SCH (19:30)
--- NOTE | 2019-04-24 19:58 | NUR ---
MS RN NOTES PATIENT IN BED, AWAKE, ALERT AND ORIENTED X 4. BREATHING EVEN AND UNLABORED ON 2L NC. SHOWS NO SIGNS OF ACUTE RESPIRATORY DISTRESS. NO ACUTE PAIN. IV ON L HAND 20G RUNNING NS AT 100ML/HR. SHOWS NO SIGNS OF INFILTRATION, NO REDNESS. SAFETY PRECAUTIONS IN PLACE. BED IN LOWEST POSITION, LOCKED, AND CALL LIGHT KEPT WITHIN REACH. WILL CONTINUE TO MONITOR.
[2019-04-24 20:00] VITALS: BP 155/96
[2019-04-24] MEDS: CEFEPIME 2 GM in IV D5W 100 ML IV SCH (20:19)
[2019-04-24] MEDS: LINEZOLID 600 MG TABLET PO SCH (20:21)
[2019-04-24 22:05] VITALS: BP 155/96
[2019-04-25 06:32] LABS: BASOPHILS # (AUTO) 0.1 /CMM (0.0-0.2); BASOPHILS % (AUTO) 0.4 % (0.0-2.0); EOSINOPHILS % (AUTO) 1.5 % (0.0-6.0); HEMATOCRIT 34 % (39-51); HEMOGLOBIN 11.3 g/dL (13.5-17.5); LYMPHOCYTES # (AUTO) 0.9 /CMM (0.8-4.8); LYMPHOCYTES % (AUTO) 5.4 % (20.0-44.0); MEAN CORPUSCULAR HGB CONC 33 g/dl (31.0-36.0); MEAN CORPUSCULAR VOLUME 87 fL (80-96); MONOCYTES # (AUTO) 1.4 /CMM (0.1-1.30); MONOCYTES % (AUTO) 7.9 % (2.0-12.0); NEUTROPHILS # (AUTO) 14.6 /CMM (1.8-8.9); NEUTROPHILS % (AUTO) 84.8 % (43.0-81.0); PLATELET COUNT (AUTO) 265 /CMM (150-450); RED BLOOD CELL COUNT(AUTO) 3.91 MIL/uL (4.5-6.0); WHITE BLOOD COUNT (AUTO) 17.3 K/uL (4.3-11.0)
--- NOTE | 2019-04-25 06:36 | NUR ---
MS RN NOTES PATIENT IN BED, ASLEEP, ALERT AND ORIENTED X 4. BREATHING EVEN AND UNLABORED ON 2L NC. SHOWS NO SIGNS OF ACUTE RESPIRATORY DISTRESS. NO ACUTE PAIN. IV ON L HAND 20G RUNNING NS AT 100ML/HR. SHOWS NO SIGNS OF INFILTRATION, NO REDNESS. ALL DUE MEDICATIONS GIVEN. SAFETY PRECAUTIONS IN PLACE. BED IN LOWEST POSITION, LOCKED, AND CALL LIGHT KEPT WITHIN REACH. WILL ENDORSE TO ONCOMING NURSE.
[2019-04-25 06:42] LABS: CALCIUM, SERUM 8.3 mg/dL (8.5-10.1); CARBON DIOXIDE 14 mmol/L (21-32); CHLORIDE 100 mmol/L (98-107); CREATININE 4.5 mg/dL (0.6-1.3); GLUCOSE 75 mg/dL (74-106); POTASSIUM 4.5 mmol/L (3.5-5.1); SODIUM SERUM 133 mmol/L (136-145); UREA NITROGEN, BLOOD 47 mg/dL (7-18)
[2019-04-25] MEDS: IV NS 0.9% 1,000 ML IV PRN ×2 (06:59→15:17)
--- NOTE | 2019-04-25 07:27 | NUR ---
RN NOTES PATIENT IS ALERT ORIENTED X4, RECEIVED IN HIS ROOM RESTING COMFORTABLY. BREATHING NORMAL NO SOB NOTED. SKIN WARM AND DRY TO TOUCH. LEFT HAND IV 20 G FLUSHED WELL. SAFETY MEASURES IN PLACE. BED IN LOW AND LOCKED. CALL LIGHT WITHIN REACH. WILL CONT TO MONITOR CLOSELY.
[2019-04-25 08:00] VITALS: BP 161/92
[2019-04-25] MEDS ORDERED: VANCOMYCIN 0.75 GM in IV D5W 250 ML IV SCH (08:00)
[2019-04-25] MEDS: ENSURE CLEAR 237 ML LIQUID (MIX BERRY) PO SCH ×2 (08:42→17:40)
[2019-04-25] MEDS: LINEZOLID 600 MG TABLET PO SCH ×2 (08:42→21:07)
[2019-04-25] MEDS: ASPIRIN EC 81 MG TABLET.DR PO SCH (08:42)
[2019-04-25] MEDS: MUPIROCIN OINT 2% 22 GM TUBE SCH ×2 (08:43→21:08)
[2019-04-25] MEDS: METOPROLOL SUCCINATE 50 MG TAB.SR.24H PO SCH (11:17)
[2019-04-25 16:00] VITALS: BP 153/92
--- NOTE | 2019-04-25 18:30 | NUR ---
RN NOTES CODE ENFORCEMENT OFFICER ORDERED BLADDER SCAN [id number] WITH STRAIGHT CATH IF MORE THAN 300CC NOTED. WILL ENDORSE TO DIRECTOR OF MARKET ANALYSIS NURSE.
--- NOTE | 2019-04-25 18:50 | NUR ---
RN NOTES PATIENT IS ALERT AWAKE ORIENTED IN STABLE CONDITION. NO S/S OF DISTRESS NOTED. ALL NEEDS ATTENDED AND MET. ALL DUE MEDICATIONS WERE GIVEN ON TIME. SAFETY MEASURES IN PLACE, CALL LIGHT WITHIN REACH. PATIENT WAS SEEN BY MD COATES WITH NO NEW ORDERS. WILL ENDORSE TO FRAME CLEANER NURSE TO CONTINUE CARE.
[2019-04-25 20:00] VITALS: BP 154/94
--- NOTE | 2019-04-25 20:00 | NUR ---
RN NOTES RECEIVED PATIENT IN BED, ALERT AND ORIENTED X3, 2LPM VIA NC, NO COMPLAIN OF PAIN, CONTACT ISOLATION DUE TO MRSA OF NARES, PER ENDORSEMENT, WITH NEW ORDER OF BLADDER SCAN POST VOID, IF RESIDUAL IS > 300, PERFORM STRAIGHT CATH. URINAL AT THE BEDSIDE, PATIENT GIVEN INSTRUCTION TO CALL AFTER VOIDING.
[2019-04-25] MEDS: CEFEPIME 2 GM in IV D5W 100 ML IV SCH (21:07)
--- NOTE | 2019-04-26 01:08 | NUR ---
RN NOTES PATIENT NOT VOIDING YET, URINAL EMPTY, PATIENT REFUSED TO VOID, EXPLAINED TO PATIENT RISKS AND BENEFITS, PATIENT STILL REFUSED, WILL TRY AGAIN
--- NOTE | 2019-04-26 01:23 | NUR ---
RN NOTES ATTEMPTED BLADDER SCAN, THIS TIME PATIENT AGREEABLE. PERFORMED BLADDER SCAN 93ML, WILL REPEAT BLADDER SCAN IN AM
[2019-04-26] MEDS: IV NS 0.9% 1,000 ML IV PRN ×2 (02:09→23:27)
[2019-04-26 05:17] VITALS: BP 158/95
--- NOTE | 2019-04-26 06:36 | NUR ---
RN NOTES PATIENT IN BED, ALERT AND AWAKE X4, STABLE ON 2LPM VIA NC, NO COMPLAIN OF PAIN, VOIDED X1, 100 ML, COLLECTED URINE FOR UA, CEFEPIME, IVF, BLADDER SCAN [id number], STRAIGHT CATH OR PLACE SCHNEIDER CATHETER TO RULE OUT URINARY RETENTION, NEXT BLADDER SCAN AT 0930
[2019-04-26 07:07] LABS: BASOPHILS # (AUTO) 0.1 /CMM (0.0-0.2); BASOPHILS % (AUTO) 0.3 % (0.0-2.0); EOSINOPHILS % (AUTO) 1.6 % (0.0-6.0); HEMATOCRIT 34 % (39-51); LYMPHOCYTES # (AUTO) 0.9 /CMM (0.8-4.8); LYMPHOCYTES % (AUTO) 4.4 % (20.0-44.0); MEAN CORPUSCULAR HGB CONC 33 g/dl (31.0-36.0); MEAN CORPUSCULAR VOLUME 87 fL (80-96); MONOCYTES # (AUTO) 1.4 /CMM (0.1-1.30); MONOCYTES % (AUTO) 6.9 % (2.0-12.0); NEUTROPHILS # (AUTO) 17.9 /CMM (1.8-8.9); NEUTROPHILS % (AUTO) 86.8 % (43.0-81.0); PLATELET COUNT (AUTO) 234 /CMM (150-450); WHITE BLOOD COUNT (AUTO) 20.6 K/uL (4.3-11.0)
[2019-04-26 07:08] LABS: PTH, INTACT 17 pg/mL (15-65)
[2019-04-26 07:58] LABS: CALCIUM, SERUM 8.1 mg/dL (8.5-10.1); CARBON DIOXIDE 11 mmol/L (21-32); CHLORIDE 103 mmol/L (98-107); CREATININE 5.4 mg/dL (0.6-1.3); GLUCOSE 85 mg/dL (74-106); POTASSIUM 4.7 mmol/L (3.5-5.1); SODIUM SERUM 135 mmol/L (136-145); UREA NITROGEN, BLOOD 51 mg/dL (7-18)
[2019-04-26 08:00] VITALS: BP 130/72
[2019-04-26 08:06] LABS: COMPLEMENT C3, SERUM 59 mg/dL (82-167); COMPLEMENT C4, SERUM 17 mg/dL (14-44)
[2019-04-26] MEDS: LINEZOLID 600 MG TABLET PO SCH ×2 (08:16→20:31)
[2019-04-26] MEDS: MUPIROCIN OINT 2% 22 GM TUBE SCH ×2 (08:17→20:30)
[2019-04-26] MEDS: METOPROLOL SUCCINATE 50 MG TAB.SR.24H PO SCH (08:17)
[2019-04-26] MEDS: ENSURE CLEAR 237 ML LIQUID (MIX BERRY) PO SCH ×2 (08:17→17:00)
[2019-04-26] MEDS: ASPIRIN EC 81 MG TABLET.DR PO SCH (08:18)
[2019-04-26 10:16] LABS: CREATININE, URINE 261.7 MG/DL (30.0-125.0)
[2019-04-26] MEDS: methylPREDNISolone SOD SUCC 125 MG/2ML VIAL IV SCH ×3 (10:19→17:00)
--- NOTE | 2019-04-26 10:57 | NUR ---
bladder scanned at 0945 as instructed, only 80cc , despite the fact ivf running continuously at 100 cc since we met consent NOT signed until niece Taisha can talk to make up man who oders the Needle Renal BX
[2019-04-26 12:09] LABS: *ANA ANTI-CENTROMERE B AB <0.2 AI (0.0-0.9); *ANA ANTI-DNA(DS) AB, QN 3 IU/mL (0-9); *ANA ANTI-JO-1 <0.2 AI (0.0-0.9); *ANA ANTICHROMATIN ANTIBODY <0.2 AI (0.0-0.9); *ANA RNP ANTIBODIES <0.2 AI (0.0-0.9); *ANA SJOGREN'S ANTI-SS-A <0.2 AI (0.0-0.9); *ANA SJOGREN'S ANTI-SS-B <0.2 AI (0.0-0.9); *ANAANTI-SCLERODERMA-70 AB <0.2 AI (0.0-0.9); *ANASMITH AB <0.2 AI (0.0-0.9)
--- NOTE | 2019-04-26 12:36 | NUR ---
Called and texted pug mill operator, dr marshall, no response. Called physicians' exchange, dr Evangelista covering, message left, both patient and family wondered why patient kept NPO.
[2019-04-26] MEDS: ONDANSETRON HCL/PF 4 MG/2 ML VIAL IVP PRN (12:53)
[2019-04-26 16:00] VITALS: BP 118/68
--- NOTE | 2019-04-26 19:05 | NUR ---
RN OPENING NOTES RECEIVED PATIENT IN BED, A/O X 4. VERBALLY RESPONSIVE AND ABLE TO MAKE NEEDS KNOWN. DENIES ANY PAIN OR DISCOMFORT AT THE MOMENT. ON RA SATURATING WELL. NO SOB NOTED. IV ACCESS ON L HAND #20 INTACT, PATENT NOO INFILTRATION NOTED WITH ONGOING IVF NS @ 100ML/HR . PORT-A-CATH ON R CHEST WALL. NO SIGNS OF INFECTIONS NOTED. SAFETY MEASURES IN PLACED, CALL LIGHT WITHIN REACH. WILL CONTINUE TO MONITOR
[2019-04-26] MEDS: CEFEPIME 2 GM in IV D5W 100 ML IV SCH (19:36)
[2019-04-26 20:00] VITALS: BP 156/95
--- NOTE | 2019-04-26 21:48 | NUR ---
RN NOTES REPORTED TO DR EDOUARD ABOUT THE PT STILL COMPLAINING AND CRYING FOR PAIN ON HER LEFT ARM AFTER THE PRN DILAUDID AND NORCO THAT WAS GIVEN TO HER @ 1999 AND 2099 RESPECTIVELY, NO ORDER WAS MADE D/T DILAUDID IS ENOUGH ON HER AND SHE WAS POSITIVE IN METHAMPHETAMINE NOTED Addendum: 04/26/19 at 2154 by EVE GAITAN RN WRONG PT NOTES
[2019-04-27] VITALS: BP 148/92
--- NOTE | 2019-04-27 07:12 | NUR ---
RN CLOSING NOTE: PATIENT IS RESTING IN BED AWAKE . NO ACUTE DISTRESS NOTED. ALERT X4. O2 VIA NC @ 2LPM AND TOLERATING WELL. NO SIGNS OF RESPIRATORY DISTRESS NOTED. ON CONTACT ISOLATION FOR MRSA OF NARES AND BLOOD. PATIENT HAS #20 ON L HAND, WITH ONGOING IVF NS 1L @ 100ML/HR , C/D/I, NO SIGNS OF COMPLICATION NOTED. PERM-A-CATH ON RUC, NO SIGNS OF COMPLICATIONS NOTED. SAFETY MEASURES IMPLEMENTED, BED IN LOWEST POSITION, LOCKED, SIDE RAILS UP X2, CALL LIGHT WITHIN REACH. ENDORSED TO FOLLOWING SHIFT FOR CONTINUITY OF CARE, REPORTED TO CHARGE NURSE THAT THE PT. OUTPUT WAS ONLY 50 ON MY SHIFT BLADDER SCAN WAS DONE WITH 60 CC PVR WILL ENDORSED TO AM SHIFT NURSE
[2019-04-27 08:00] VITALS: BP 157/92
[2019-04-27] MEDS: ENSURE CLEAR 237 ML LIQUID (MIX BERRY) PO SCH ×2 (08:00→17:12)
[2019-04-27 08:14] LABS: BASOPHILS # (AUTO) 0.1 /CMM (0.0-0.2); BASOPHILS % (AUTO) 0.4 % (0.0-2.0); EOSINOPHILS % (AUTO) 1.6 % (0.0-6.0); HEMATOCRIT 36 % (39-51); HEMOGLOBIN 11.7 g/dL (13.5-17.5); LYMPHOCYTES # (AUTO) 1.1 /CMM (0.8-4.8); LYMPHOCYTES % (AUTO) 4.9 % (20.0-44.0); MEAN CORPUSCULAR HGB CONC 32 g/dl (31.0-36.0); MEAN CORPUSCULAR VOLUME 88 fL (80-96); MONOCYTES # (AUTO) 1.5 /CMM (0.1-1.30); NEUTROPHILS # (AUTO) 19.1 /CMM (1.8-8.9); NEUTROPHILS % (AUTO) 86.1 % (43.0-81.0); PLATELET COUNT (AUTO) 242 /CMM (150-450); RED BLOOD CELL COUNT(AUTO) 4.14 MIL/uL (4.5-6.0); WHITE BLOOD COUNT (AUTO) 22.1 K/uL (4.3-11.0)
[2019-04-27 08:41] LABS: CALCIUM, SERUM 8.3 mg/dL (8.5-10.1); CARBON DIOXIDE 13 mmol/L (21-32); CHLORIDE 105 mmol/L (98-107); CREATININE 6.3 mg/dL (0.6-1.3); GLUCOSE 90 mg/dL (74-106); POTASSIUM 5.3 mmol/L (3.5-5.1); SODIUM SERUM 135 mmol/L (136-145); UREA NITROGEN, BLOOD 55 mg/dL (7-18)
[2019-04-27] MEDS: LINEZOLID 600 MG TABLET PO SCH ×2 (09:36→20:24)
[2019-04-27] MEDS: methylPREDNISolone SOD SUCC 125 MG/2ML VIAL IV SCH ×3 (09:36→17:12)
[2019-04-27 09:37] LABS: BAND % (MANUAL) 7 % (0.0-5.0); EOSINOPHILS % (MANUAL) 3 % (0-4); LYMPHOCYTES % (MANUAL) 9 % (16-48); MONOCYTES % (MANUAL) 10 % (0-11.0); NEUTROPHILS % (MANUAL) 71 (42-76)
[2019-04-27] MEDS: METOPROLOL SUCCINATE 50 MG TAB.SR.24H PO SCH (09:37)
[2019-04-27] MEDS: MUPIROCIN OINT 2% 22 GM TUBE SCH ×2 (09:40→20:25)
--- NOTE | 2019-04-27 13:32 | NUR ---
On or off oxygen, doing fine, no sob noted, no c/o dyspnea. alert, oriented, did not call when needs to use bathroom, missed the urinal most of the times. both groins with noticeable redness , very " unconfortable, he said. LOTRIMIN cream applied. both family and patient fully understand pt needs needle renal bx tomorrow, consent not signed yet, " will need my daughter 's advice on this before any procedure" will put him NPO just in case , patient agrees for the procedure in am
[2019-04-27 16:00] VITALS: BP 158/101
[2019-04-27] MEDS: CLOTRIMAZOLE 1% 15 GM TUBE TP SCH (17:13)
--- NOTE | 2019-04-27 18:36 | NUR ---
bp at 1800, double checked by nurse 158/101 not high enough for hydralazine. oncoming made aware to monitor during the shift. shilpi Sumner, called but NOT POA for this patient, per charge nurse, cant sign the consent for NEEDLE RENAL BX
--- NOTE | 2019-04-27 18:40 | NUR ---
0930 bladder scanned , only 98 1800 bladder scanned again 100 it is very hard to see how much patient's urine output, bec he is continent/incontinent, missed his urinal and urinated on self.
--- NOTE | 2019-04-27 19:30 | NUR ---
MS RN OPENING NOTES RECEIVED PATIENT FROM MORNING SHIFT, ALERT AND ORIENTED X 3. BREATHING REGULAR AND UNLABORED ON OXYGEN AT 2L/MIN VIA NASAL CANNULA. LEFT WRIST G20 IV LINE INTACT AND PATENT, INFUSING WELL WITH NO BLEEDING OR S/S OF INFILTRATION NOTED. BODY ASSESSMENT DONE, SEEN WITH SACRAL AND PERINEAL GROIN REDNESS ALSO NOTED WITH OPEN WOUND ON LEFT WRIST. NO COMPLAINTS OF PAIN/DISCOMFORT REPORTED OF THE TIME. ON CONTACT ISOLATION FOR MRSA BLOOD/NARES, PROPER HAND WASHING AND ISOLATION PRECAUTION OBSERVED. BED LOW AND LOCKED ON SEMI FOWLERS POSITION. CALL LIGHT IN REACH. WILL CONTINUE TO MONITOR.
--- NOTE | 2019-04-27 19:50 | NUR ---
MS RN NOTES CALLED JABIER BONILLA ([facility]) TO GET CONSENT FOR NEEDLE RENAL BIOPSY. VERBALIZED UNDERSTANDING ANG AGREES WITH THE PROCEDURE. WITNESSED BY MARQUIS GORMAN. CONSENTS ON THE CHART.
[2019-04-27 20:00] VITALS: BP 163/97
[2019-04-27] MEDS: CEFEPIME 2 GM in IV D5W 100 ML IV SCH (20:24)
[2019-04-27] MEDS: hydrALAZINE HCL 25 MG TABLET PO PRN (20:25)
--- NOTE | 2019-04-27 20:30 | NUR ---
MS RN NOTES BP 168/98, HYDRALAZINE 25MG GIVEN BY MOUTH. WILL CONTINUE TO MONITOR.
[2019-04-27] MEDS: IV NS 0.9% 1,000 ML IV PRN (23:23)
[2019-04-28] VITALS (11 sets, daily range): BP systolic 105–176; BP diastolic 46–130
--- NOTE | 2019-04-28 01:20 | NUR ---
MS RN NOTES CHECKED PATIENT CHART FOR COPY OF ADVANCE DIRECTIVES, NONE NOTED. ASKED PATIENT IF HE HAS AN ADVANCE DIRECTIVES AND DENIES. MADE AWARE THAT HE'S GOING TO HAVE A RENAL NEEDLE BIOPSY LATER, EXPLAINED THE RISK AND BENEFITS WITH ON DUTY CERTIFIED PEDIATRIC NURSE PRACTITIONER TRANSLATING TO IRISH LANGUAGE. PATIENT IS ALERT AND ORIENTED X 3, AGREED AND SIGNED CONSENTS FOR PROCEDURE. CONSENTS ATTACHED TO CHART.
--- NOTE | 2019-04-28 04:00 | NUR ---
MS RN NOTES BLADDER SCAN 104ml
--- NOTE | 2019-04-28 06:30 | NUR ---
MS RN CLOSING NOTES PATIENT IN BED ALERT AND ORIENTED X 3. BREATHING REGULAR AND UNLABORED ON OXYGEN AT 2L/MIN VIA NASAL CANNULA. LEFT WRIST G20 IV LINE PATENT AND INFUSING WELL. NO COMPLAINTS OF PAIN/DISCOMFORT REPORTED THE WHOLE SHIFT. MAINTAINED ON CONTACT ISOLATION FOR MRSA BLOOD/NARES, PROPER HAND WASHING AND ISOLATION PRECAUTION OBSERVED. MAINTAINED ON NPO. BED LOW AND LOCKED ON SEMI FOWLERS POSITION. CALL LIGHT IN REACH. WILL ENDORSE TO MORNING SHIFT FOR ELVIA.
[2019-04-28 06:54] LABS: BASOPHILS # (AUTO) 0.1 /CMM (0.0-0.2); BASOPHILS % (AUTO) 0.3 % (0.0-2.0); EOSINOPHILS % (AUTO) 0.3 % (0.0-6.0); HEMATOCRIT 33 % (39-51); HEMOGLOBIN 10.6 g/dL (13.5-17.5); LYMPHOCYTES # (AUTO) 1.4 /CMM (0.8-4.8); LYMPHOCYTES % (AUTO) 7.4 % (20.0-44.0); MEAN CORPUSCULAR HGB CONC 33 g/dl (31.0-36.0); MEAN CORPUSCULAR VOLUME 87 fL (80-96); MONOCYTES # (AUTO) 1.5 /CMM (0.1-1.30); MONOCYTES % (AUTO) 8.1 % (2.0-12.0); NEUTROPHILS % (AUTO) 83.9 % (43.0-81.0); PLATELET COUNT (AUTO) 183 /CMM (150-450); RED BLOOD CELL COUNT(AUTO) 3.75 MIL/uL (4.5-6.0); WHITE BLOOD COUNT (AUTO) 19.1 K/uL (4.3-11.0)
--- NOTE | 2019-04-28 07:25 | NUR ---
MS RN NOTES HAD AN EPISODE OF SHORTNESS OF BREATH, OXYGEN INHALATION INCREASED TO 4L/MIN VIA NASAL CANNULA. SPO2 90% HR 133bpm. IV LINE PULLED OUT. PER PATIENT HE WENT TO THE RESTROOM TO URINATE AND CAME BACK TO BED GASPING FOR AIR. REASSURED PATIENT, TOLD HIM TO RELAX AND DEMONSTRATED DEEP BREATHING TECHNIQUES. HEAD OF THE BED KEPT ELEVATED. IV LINE REINSERTED ON RIGHT AC G22 WITH BLOOD BACK FLOW, FLUSHING WELL. SPO2 INCREASED TO 94% HR 108bpm AFTER 10MINS. ENDORSED ACCORDINGLY TO MORNING SHIFT FOR ELVIA.
[2019-04-28 07:36] LABS: BAND % (MANUAL) 1 % (0.0-5.0); LYMPHOCYTES % (MANUAL) 6 % (16-48); MONOCYTES % (MANUAL) 6 % (0-11.0); MYELOCYTES % 1 % (0-0); NEUTROPHILS % (MANUAL) 86 (42-76)
[2019-04-28 07:54] LABS: CALCIUM, SERUM 8.3 mg/dL (8.5-10.1); CARBON DIOXIDE 12 mmol/L (21-32); CHLORIDE 106 mmol/L (98-107); CREATININE 6.5 mg/dL (0.6-1.3); GLUCOSE 85 mg/dL (74-106); POTASSIUM 5.3 mmol/L (3.5-5.1); SODIUM SERUM 136 mmol/L (136-145); UREA NITROGEN, BLOOD 64 mg/dL (7-18)
[2019-04-28] MEDS: ENSURE CLEAR 237 ML LIQUID (MIX BERRY) PO SCH ×2 (08:00→16:22)
--- NOTE | 2019-04-28 08:00 | NUR ---
MS/RN OPENING NOTES RECEIVED PATIENT HAD AN EPISODE OF SHORTNESS OF BREATH, OXYGEN INHALATION INCREASED TO 4L/MIN VIA NASAL CANNULA. SPO2 94%. DENIES PAIN AT THIS TIME. WILL CONTINUE TO MONITOR.
[2019-04-28] MEDS: LINEZOLID 600 MG TABLET PO SCH ×2 (09:00→21:56)
--- NOTE | 2019-04-28 09:00 | NUR ---
DIALYSIS IN PROCESS. 0000 DIALYSIS OVER 500 CC OUT Addendum: 04/29/19 at 0541 by CHAD ANDRES RN MISTAKE CHARTING, MEANT TO CHART ON 04-28-19 AT 2100
[2019-04-28] MEDS: methylPREDNISolone SOD SUCC 125 MG/2ML VIAL IV SCH ×3 (09:38→18:10)
[2019-04-28] MEDS: CLOTRIMAZOLE 1% 15 GM TUBE TP SCH ×2 (09:38→18:11)
[2019-04-28] MEDS: MUPIROCIN OINT 2% 22 GM TUBE SCH ×2 (09:38→21:45)
[2019-04-28] MEDS: METOPROLOL SUCCINATE 50 MG TAB.SR.24H PO SCH (10:30)
[2019-04-28 11:11] LABS: *SPE A/G RATIO 0.5 (0.7-1.7); *SPE ALBUMIN 1.8 g/dL (2.9-4.4); *SPE ALPHA-1-GLOBULIN 0.4 g/dL (0.0-0.4); *SPE ALPHA-2-GLOBULIN 1.1 g/dL (0.4-1.0); *SPE BETA GLOBULIN 0.7 g/dL (0.7-1.3); *SPE GLOBULIN, TOTAL 3.3 g/dL (2.2-3.9); *SPE M-SPIKE Not Observed g/dL (Not Observed); *SPEGAMMA GLOBULIN 1.1 g/dL (0.4-1.8)
[2019-04-28 11:15] LABS: ABG BASE EXCESS -16.5 mmol/L; ABG OXYGEN SATURATION 94.9 % (92.0-98.5); ABG PH 7.226 (7.350-7.450); ABG PO2 91.5 mmHg (75.0-100.0); AaDO2 203.2 mmHg; COHb 0.3 % (0.5-1.5); MetHb 0.4 % (0.0-1.5); O2Hb 94.2 % (94.0-97.0); SITE, ABG Right Radial; VENT MODE, BG Nasal Cannula
[2019-04-28] MEDS ORDERED: Sodium Bicarbonate 50 MEQ in IV 1/2NS 1000 ML 1,000 ML IV PRN (12:00)
[2019-04-28] MEDS ORDERED: FENTANYL PF 250MCG/5ML AMPUL IV ONE (14:00)
[2019-04-28] MEDS ORDERED: NALOXONE PREFILLED SYRINGE 2 MG/2 ML SYRINGE IV ONE (14:00)
[2019-04-28] MEDS ORDERED: MIDAZOLAM HCL 5MG/ML VIAL 25 MG/5 ML VIAL IV ONE (14:00)
[2019-04-28 14:18] LABS: ABG BASE EXCESS -18.5 mmol/L; ABG OXYGEN SATURATION 97.2 % (92.0-98.5); ABG PCO2 20.7 mmHg (35.0-45.0); ABG PH 7.191 (7.350-7.450); ABG PO2 133.2 mmHg (75.0-100.0); AaDO2 99.5 mmHg; COHb 0.3 % (0.5-1.5); MetHb 0.5 % (0.0-1.5); O2Hb 96.4 % (94.0-97.0); SITE, ABG Left Radial; VENT MODE, BG N/C
[2019-04-28] MEDS ORDERED: SODIUM BICARBONATE 5 ML VIAL IV ONE (14:30)
--- NOTE | 2019-04-28 14:53 | NUR ---
MS/RN NOTES PATIENT TRANSFERRED TO ICU FOR [facility]. GIVE REPORT ICU NURSE.
--- NOTE | 2019-04-28 15:00 | NUR ---
RN NOTES BEDSIDE REPOST OBTAINED FROM MARQUIS MCDONALD PATIENT WILL NEED OF ICU MANAGEMENT FOR HAVING SHORTNESS OF BREATH AFTER BEING FEED. PATIENT CALM IN BED AT THIS TIME, BREATHING UNLABORED AND SATING 100% ON NON REBREATHER MASK. NO INDICATION OF PAIN NOTED AT THIS TIME. MARQUIS NICHOLS ( CHARGE NURSE) AT BEDSIDE INSERTING IV. CHART REVIEWED FOR NEW ORDERS. WILL CONTINUE TO MONITOR PATIENT ACCORDINGLY 1515: Dex SESAY NP AT THE UNIT, CLARIFIED WITH HIM, IF HE WANTS 2 AMP OF SODIUM BICARBONATE ON TOP OF DR. COATES'S ORDER FOR 3 AMP OF SODIUM BICARB ON D5W. AFTER DISCUSSION WITH SARBJIT MACKAY ORDER TO STICK WITH DR. COATES'S ORDER. ORDER NOTED AND CARRIED OUT
--- NOTE | 2019-04-28 15:20 | NUR ---
RN NOTES CALLED PHARMACY TO FOLLOW UP ON THE SODIUM BICARB DRIP, PER [place] THEY ARE STILL PREPARING
[2019-04-28] MEDS: Sodium Bicarbonate 150 MEQ in IV D5W 1,000 ML IV PRN (16:07)
--- NOTE | 2019-04-28 17:00 | NUR ---
RN NOTES OBTAINED ORDER TO OBTAIN CONSENT FOR HEMODIALYSIS INSERTION, ORDER NOTED AND CARRIED OUT. CONSENT OBTAINED FROM THE , WHO IS AT BEDSIDE AT THE MOMENT
--- NOTE | 2019-04-28 18:58 | NUR ---
HEMODIALYSIS CATHETER INSERTION First Coat Sander: [facility] Jp Costa NP TRIALYSIS 13F 30CM Patient has order to insert HD catheter. Informed consent is signed and in chart. Insertion site determined to be right femoral vein. Patient was prepped using sterile technique with chlorhexidine. Patient was covered with a sterile drape and i donned a sterile gown. The insertion site was anesthetized with 1% lidocaine. Needle inserted under ultrasound guidance. Guidewire inserted through needle and needle removed. Small daniel made at insertion site of approximately 2 mm. Dilator inserted over guidewire then removed. Catheter inserted fully over guidewire. Guidewire removed. Blood return at all three ports. Caps placed on each port. Catheter secured with 2 sutures. Biopatch placed and covered with tegaderm. No s/s of complication. Tolerated well with minimal blood loss. Ebl 3ml.
--- NOTE | 2019-04-28 19:20 | NUR ---
RN NOTES ENDORSED PATIENT FOR CONTINUITY OF CARE. NOT ON ANY FORM OF DISTRESS. TOLERATING NONREBREATHER WELL AND SATING FINE. NO INDICATION OF PAIN NOT COMPLAINTS AT THIS TIME. SODIUM BICARBONATE STILL RUNNING AT 100CC/HR. SAFETY MEASURES IN PLACE. CALL LIGHT WITHIN REACH.
--- NOTE | 2019-04-28 19:30 | NUR ---
SCROLL SHEAR OPERATOR OPENING NOTES, RECEIVED PATIENT IN BED RESTING, FAMILY AT BED SIDE. ON NONREBREATHER MASK TOLERATING WELL. NO SOB OR ACUTE DISTRESS NOTED AT THIA TIME. IV ON RAC RUNNING SODIUM BICARBONATE STILL RUNNING AT 100CC/HR. HD CAT ON R FEMORAL. NO PAIN COMPLAINTS AT THIS TIME. SAFETY MEASURES IN PLACE. CALL LIGHT WITHIN REACH. WILL CONTINUE TO MONITOR.
[2019-04-28] MEDS: CEFEPIME 2 GM in IV D5W 100 ML IV SCH (20:12)
--- NOTE | 2019-04-28 20:33 | NUR ---
16 LITHUANIAN SCHNEIDER CATH WAS INSERTED. DARK COLOR URINE DRAINING TO THE GRAVITY.
--- NOTE | 2019-04-28 21:00 | NUR ---
DIALYSIS IN PROCESS. 0000 DIALYSIS OVER 500 CC OUT
[2019-04-29] VITALS (56 sets, daily range): BP systolic 96–166; BP diastolic 62–109
--- NOTE | 2019-04-29 | NUR ---
PATIENT STARTED TO TROW UP FRESH/RED BLOOD. TRIED TO SUCTION BUT PATIENT RESISTS INSERTING ANYTHING IN HIS MOUTH. NO EVIDENCE OF ANY CUT IN THE MOUTH. RT AND CHARGE NURSE AT BED SIDE. NOTIFIED ON ANA.YARED, ORDERED NG TUBE INSERTION. WILL CONTINUE TO MONITOR. Addendum: 04/29/19 at 0553 by CHAD ANDRES RN X3 ATTEMPTS TO INSERT NG TUBE BY CHARGE NURSEARIANNE WAS UNSUCCESSFUL. BLEEDING IS DECREASED. PATIENT IS ON NON REBREATHER MASK 15L TOLERATING WELL. NO S/S OF ACUTE DISTRESS NOTED. O2 SATURATION 96%
[2019-04-29] MEDS: LORAZEPAM INJ 2 MG/ML VIAL IV PRN ×2 (01:03→17:38)
[2019-04-29] MEDS ORDERED: IV NS 0.9% 250 ML IV PRN (03:30)
[2019-04-29] MEDS: Sodium Bicarbonate 150 MEQ in IV D5W 1,000 ML IV PRN (04:38)
[2019-04-29 04:48] LABS: BASOPHILS % (AUTO) 0.2 % (0.0-2.0); EOSINOPHILS % (AUTO) 0.3 % (0.0-6.0); LYMPHOCYTES # (AUTO) 0.8 /CMM (0.8-4.8); LYMPHOCYTES % (AUTO) 6.1 % (20.0-44.0); MEAN CORPUSCULAR HGB CONC 33 g/dl (31.0-36.0); MEAN CORPUSCULAR VOLUME 87 fL (80-96); MONOCYTES # (AUTO) 1.1 /CMM (0.1-1.30); MONOCYTES % (AUTO) 8.4 % (2.0-12.0); NEUTROPHILS # (AUTO) 10.9 /CMM (1.8-8.9); PLATELET COUNT (AUTO) 96 /CMM (150-450); RED BLOOD CELL COUNT(AUTO) 2.28 MIL/uL (4.5-6.0); WHITE BLOOD COUNT (AUTO) 12.8 K/uL (4.3-11.0)
[2019-04-29 04:55] LABS: CALCIUM, SERUM 7.3 mg/dL (8.5-10.1); CARBON DIOXIDE 23 mmol/L (21-32); CHLORIDE 110 mmol/L (98-107); GLUCOSE 146 mg/dL (74-106); POTASSIUM 4.5 mmol/L (3.5-5.1); SODIUM SERUM 143 mmol/L (136-145); UREA NITROGEN, BLOOD 46 mg/dL (7-18)
[2019-04-29 05:05] LABS: HEMATOCRIT 20 % (39-51); HEMOGLOBIN 6.5 g/dL (13.5-17.5)
[2019-04-29 05:58] LABS: LYMPHOCYTES % (MANUAL) 6 % (16-48)
[2019-04-29 05:59] LABS: MONOCYTES % (MANUAL) 7 % (0-11.0); NEUTROPHILS % (MANUAL) 87 (42-76)
--- NOTE | 2019-04-29 07:59 | NUR ---
OXIDIZED FINISH PLATER CLOSING NOTES, PATIENT IN BED RESTING, ON 5LNS TOLERATING WELL. NO SOB OR ACUTE DISTRESS NOTED AT THIS TIME. IV ON RAC RUNNING SODIUM BICARBONATE STILL RUNNING AT 100CC/HR. HD CAT ON R FEMORAL. NO PAIN COMPLAINTS AT THIS TIME. SAFETY MEASURES IN PLACE. PATIENT KEPT DRY AND CLEAN DURING THE SHIFT. CALL LIGHT WITHIN REACH. ENDORSED THE PATIENT TO AM RN FOR ELVIA.
[2019-04-29] MEDS: ENSURE CLEAR 237 ML LIQUID (MIX BERRY) PO SCH ×2 (08:00→16:58)
[2019-04-29] MEDS: LINEZOLID 600 MG TABLET PO SCH (09:00)
[2019-04-29] MEDS: MUPIROCIN OINT 2% 22 GM TUBE SCH ×2 (09:00→21:00)
[2019-04-29] MEDS: CLOTRIMAZOLE 1% 15 GM TUBE TP SCH ×3 (09:00→20:39)
[2019-04-29] MEDS: PANTOPRAZOLE 40 MG VIAL IV SCH ×3 (09:00→20:37)
[2019-04-29 09:07] LABS: *PEUR ALPHA-1-GLOBULIN 1.2 % (.); *PEUR BETA GLOBULIN 13.8 % (.); *PEUR GAMMA GLOBULIN 7.1 % (.)
[2019-04-29] MEDS: methylPREDNISolone SOD SUCC 125 MG/2ML VIAL IV SCH ×3 (09:08→16:58)
[2019-04-29 09:17] LABS: ABG OXYGEN SATURATION 95.2 % (92.0-98.5); ABG PCO2 31.4 mmHg (35.0-45.0); ABG PH 7.472 (7.350-7.450); ABG PO2 85.8 mmHg (75.0-100.0); AaDO2 134.5 mmHg; COHb 0.8 % (0.5-1.5); MetHb 0.4 % (0.0-1.5); O2Hb 94.1 % (94.0-97.0); SITE, ABG Left Radial; VENT MODE, BG N/C
[2019-04-29] MEDS: METOPROLOL SUCCINATE 50 MG TAB.SR.24H PO SCH (10:30)
--- NOTE | 2019-04-29 10:50 | NUR ---
DR. BRADLEY VERBALIZED HE IS GOING TO CALL FINANCIAL SPECIALIST GI DR. DUMONT
--- NOTE | 2019-04-29 16:50 | NUR ---
Per industry analyst, patient "clotted dialysis line in 30min. this is not normal". Additionally, patient reports being SOB, despite SPO2 94%. Notified Dr. Esteves of both, Dr. Arnulfo Gurrola contacted by industry analyst
--- NOTE | 2019-04-29 17:15 | NUR ---
Dialysis was continued with a fresh line. Blood transfusion infusing. @1710 Patient began to report severe left sided flank pain, HR sinus tach 140-150, BP >150/100. temp 98.2ax + orally. Dialysis and blood stopped. Ativan given. Dr. Esteves notified, STAT US of abdomen ordered+ STAT EKG. Dr. Forte called. Received order for nitro drip+ STAT CT abdomen. H&H post blood transfusion (about 1.5U infused) order placed
[2019-04-29] MEDS ORDERED: NTG 50 MG/D5W250 ML BOTTL 250 ML IV PRN (17:27)
[2019-04-29] MEDS: NTG 50 MG/D5W250 ML BOTTL 250 ML IV PRN ×2 (17:44→18:00)
[2019-04-29 18:25] LABS: HEMOGLOBIN 7.6 g/dL (13.5-17.5)
--- NOTE | 2019-04-29 18:57 | NUR ---
Received call from Dr. Doherty, 6a EGD, V/Q scan to r/o PE Dr. Fuller order
--- NOTE | 2019-04-29 20:00 | NUR ---
RN NOTES RECEIVED PATIENT WAS GOING TO CT ABDOMEN FOR COMPLAINING OF RIGHT SIDED ABDOMINAL PAIN, DURING HALF OF 2ND UNIT OF BLOOD TRANSFUSION. TRANSFUSION WAS STOPPED SINCE 1710 PM AND RECEIVED AN ORDER FROM DR. BRADLEY TO CONTINUE THE TRANSFUSION BUT PATIENT STILL ON CT. WILL INFORMED INSPECTOR FUEL HOSE MD IF ITS STILL OK TO GIVE THE BLOOD TRANSFUSION SINCE IT WAS STOPPED 3 H AGO AND THEY STARTED IT AT 1300.
[2019-04-29] MEDS: CEFEPIME 2 GM in IV D5W 100 ML IV SCH (20:37)
[2019-04-29] MEDS: LINEZOLID RTU BAG 600 MG in PREMIX 1 EA IV SCH (20:37)
--- NOTE | 2019-04-29 21:30 | NUR ---
RN NOTES FAMILY AT BEDSIDE VISITING THE PATIENT NORMAMAXIMILIANO BOYDINE MADE AWARE THE SITUATION OF THE PATIENT. INFORMED HER THAT THE PATIENT WILL HAVE EGD IN THE MORNING AT 6AM AND VQ SCAN. CONSENT SIGNED TOGETHER WITH ANESTHESIA.
[2019-04-29] MEDS: MORPHINE SULFATE INJ 2 MG/ML DISP.SYRIN IV PRN (21:48)
--- NOTE | 2019-04-29 22:30 | NUR ---
RN NOTES 2129 PM - DR. GUERIN ON THE FLOOR AND REPORTED ABOUT PATIENT SITUATION THAT DR. BRADLEY WANTS TO CONTINUE THE BT BUT THE PATIENT STILL RESTLESS, TACHYCARDIC AND TACHYPNEIC AND PER FAMILY PATIENT STILL COMPLAINING OF PAIN ON HIS RIGHT SIDE INFORMED DNP THAT THE BLOOD TRANSFUSION WAS STOPPED AROUND 1700 AND WILL NOT BE ABLE TO CONTINUE THE BLOOD BECAUSE IT WAS BEEN HOLD FOR 4 H. PER MD TO GIVE THE 3RD BAG OF PRBC AND CHECKED H/H AFTER 1 HOUR WHEN ITS DONE. AND THE REST OF THE ORDER PLACED BY DR. GUERIN. CT ABDOMEN RESULT REPORTED WELL. 2155 - BLOOD TRANSFUSION STARTED 2147 - MORPHINE IVP ADMINISTERED ORDERED. AND PT. STARTED TO CALM DOWN.
[2019-04-30] VITALS (50 sets, daily range): BP systolic 84–168; BP diastolic 61–115
[2019-04-30 02:00] LABS: HEMOGLOBIN 6.7 g/dL (13.5-17.5)
[2019-04-30] MEDS: LORAZEPAM INJ 2 MG/ML VIAL IV PRN ×3 (02:03→21:40)
--- NOTE | 2019-04-30 02:30 | NUR ---
RN NOTES RECEIVED A CALL FROM [facility] AND REPORTED CRITICAL HGB 6.7 AND HCT. 20. CALLED AND INFORMED DR GUERIN WITH ORDER TO GIVE 2 UNITS PRBC, 1 UNIT OF PLATELETS AND 1 UNIT OF FFP NOTED AND CARRIED OUT ORDER.
--- NOTE | 2019-04-30 03:44 | NUR ---
RN NOTES FFP STARTED 2 RN CHECKED WITH SCAR CHO. PT ASLEEP AT THIS TIME.
[2019-04-30 05:07] LABS: CALCIUM, SERUM 7.3 mg/dL (8.5-10.1); CARBON DIOXIDE 24 mmol/L (21-32); CHLORIDE 111 mmol/L (98-107); GLUCOSE 156 mg/dL (74-106); MAGNESIUM 2.2 mg/dL (1.8-2.4); PHOSPHORUS 6.7 mg/dL (2.5-4.9); POTASSIUM 5.1 mmol/L (3.5-5.1); SODIUM SERUM 145 mmol/L (136-145); UREA NITROGEN, BLOOD 46 mg/dL (7-18)
[2019-04-30 05:41] LABS: BASOPHILS % (AUTO) 0.3 % (0.0-2.0); LYMPHOCYTES # (AUTO) 1.4 /CMM (0.8-4.8); LYMPHOCYTES % (AUTO) 9.2 % (20.0-44.0); MEAN CORPUSCULAR HGB CONC 33 g/dl (31.0-36.0); MEAN CORPUSCULAR VOLUME 89 fL (80-96); MONOCYTES # (AUTO) 1.3 /CMM (0.1-1.30); MONOCYTES % (AUTO) 8.9 % (2.0-12.0); NEUTROPHILS # (AUTO) 11.9 /CMM (1.8-8.9); NEUTROPHILS % (AUTO) 81.6 % (43.0-81.0); PLATELET COUNT (AUTO) 58 /CMM (150-450); RED BLOOD CELL COUNT(AUTO) 2.02 MIL/uL (4.5-6.0); WHITE BLOOD COUNT (AUTO) 14.7 K/uL (4.3-11.0)
[2019-04-30 05:46] LABS: HEMOGLOBIN 5.9 g/dL (13.5-17.5)
[2019-04-30 05:47] LABS: HEMATOCRIT 18 % (39-51)
--- NOTE | 2019-04-30 06:00 | NUR ---
RN NOTES PATIENT PICKED UP BY O.R STAFF FOR EGD . PLASMA STILL RUNNING. VSS.. PT IS AWAKE BUT STILL CONFUSED. REMAINED ST HR 100'S ON TELE MONITOR. SATURATION 99%. AFEBRILE THROUGHOUT THE SHIFT NO URINE OUTPUT SINCE STARTING OF THE SHIFT. RESTLESSNESS NOTED WHEN AWAKE. INCONTINENT CARE RENDERED. WILL CONTINUE THE REST OF BLOOD TRANSFUSION WHEN PATIENT COME. WILL ENDORSED CONTINUITY OF CARE TO AM NURSE.
[2019-04-30 06:04] LABS: LYMPHOCYTES % (MANUAL) 8 % (16-48)
[2019-04-30 06:06] LABS: MONOCYTES % (MANUAL) 6 % (0-11.0); NEUTROPHILS % (MANUAL) 86 (42-76)
[2019-04-30] MEDS ORDERED: ANESTHESIA TRAY IN PYXIS 1 EA TRAY MC ONE (06:15)
[2019-04-30] MEDS: LINEZOLID RTU BAG 600 MG in PREMIX 1 EA IV SCH ×2 (07:54→20:16)
[2019-04-30] MEDS: methylPREDNISolone SOD SUCC 125 MG/2ML VIAL IV SCH ×3 (07:55→19:33)
[2019-04-30] MEDS: PANTOPRAZOLE 40 MG VIAL IV SCH ×2 (07:55→20:16)
[2019-04-30] MEDS: ENSURE CLEAR 237 ML LIQUID (MIX BERRY) PO SCH ×2 (08:00→17:00)
[2019-04-30] MEDS: CLOTRIMAZOLE 1% 15 GM TUBE TP SCH ×2 (09:00→17:00)
[2019-04-30] MEDS: MUPIROCIN OINT 2% 22 GM TUBE SCH ×2 (09:00→20:13)
--- NOTE | 2019-04-30 09:11 | NUR ---
PATIENT STILL UNABLE TO COME DOWN FOR CT GUIDED RENAL BIOPSY PER RN. PT RECEIVING BLOOD TRANSFUSION.
[2019-04-30] MEDS: MORPHINE SULFATE INJ 2 MG/ML DISP.SYRIN IV PRN ×2 (10:09→20:12)
[2019-04-30] MEDS: METOPROLOL SUCCINATE 50 MG TAB.SR.24H PO SCH (10:30)
[2019-04-30] MEDS ORDERED: IV NS 0.9% 250 ML IV ONE (17:34)
[2019-04-30] MEDS ORDERED: IOHEXOL-350 100 ML VIAL IV ONE (17:34)
[2019-04-30] MEDS ORDERED: CT SWABBABLE VALVE TRANS SET 1 EA INFUS.SET MC ONE (17:34)
[2019-04-30 19:15] LABS: BASOPHILS # (AUTO) 0.1 /CMM (0.0-0.2); BASOPHILS % (AUTO) 0.6 % (0.0-2.0); EOSINOPHILS % (AUTO) 0.1 % (0.0-6.0); LYMPHOCYTES # (AUTO) 1.2 /CMM (0.8-4.8); LYMPHOCYTES % (AUTO) 7.3 % (20.0-44.0); MEAN CORPUSCULAR HGB CONC 34 g/dl (31.0-36.0); MEAN CORPUSCULAR VOLUME 86 fL (80-96); MONOCYTES # (AUTO) 1.6 /CMM (0.1-1.30); MONOCYTES % (AUTO) 9.5 % (2.0-12.0); NEUTROPHILS # (AUTO) 14.1 /CMM (1.8-8.9); NEUTROPHILS % (AUTO) 82.5 % (43.0-81.0); PLATELET COUNT (AUTO) 133 /CMM (150-450); WHITE BLOOD COUNT (AUTO) 17.1 K/uL (4.3-11.0)
--- NOTE | 2019-04-30 19:22 | NUR ---
ICU SHIFT SUMMARY Patient A/Ox1-2, Danish speaking, restless, experiencing intermittent SOB at rest, 5L O2 via NC SPO2 92%. Tele ST HR 100-140. Henson catheter drained 10mL dark brown colored urine, no HD done today (gave Dr. Arredondo radiologist's # to communicate regarding dialysis tomorrow post CTA chest abdomen pelvis today, consent signed via phone consent by shilpi Sumner), no episodes of emesis, no bowel movement, remain NPO, oral care provided, restraints in place as patient pulls at lines, no s/s impaired circulation or sensation noted, R AC 20G, IRAM ML, R femoral HD cath, patient medicated for pain+anxiety. hgb draw done at 1900 post 2U PRBC, 1U platelets, 1U plasma.
--- NOTE | 2019-04-30 20:00 | NUR ---
RN NOTES 1924 PM - RECEIVED A CALL FROM RADIOLOGY [facility] AND SPOKE TO DR. VALLES VERBALIZING VIA PHONE THAT THE PATIENT CTA CHEST, ABD AND PELVIS RESULT WAS RIGHT SIDED PULM. EMBOLI AND SLIGHTLY INCREASING VOL. OF INTRAPERITONEAL HEMORRHAGE AND TO INFORM HOSPITALIST REGARDING THIS.
[2019-04-30] MEDS: CEFEPIME 2 GM in IV D5W 100 ML IV SCH (20:12)
[2019-04-30 20:29] LABS: HEMATOCRIT 18 % (39-51); HEMOGLOBIN 6.2 g/dL (13.5-17.5)
[2019-04-30 20:30] LABS: BAND % (MANUAL) 2 % (0.0-5.0); EOSINOPHILS % (MANUAL) 1 % (0-4); LYMPHOCYTES % (MANUAL) 7 % (16-48); MONOCYTES % (MANUAL) 6 % (0-11.0); NEUTROPHILS % (MANUAL) 84 (42-76)
--- NOTE | 2019-04-30 20:30 | NUR ---
RN NOTES 2019 PM - DR. WOODS CALLED AND MADE AWARE REGARDING THE CTA CHEST/ABD AND PELVIS RESULT PER MD TO DO US OF BLE AND BUE AND TO LET THE HOSPITALIST KNOW THAT THE PATIENT NEEDS AN EVAL FROM THE VASCULAR SURGEON TO EVAL FOR IVC FILTER. WILL INFORMED ONCALL.
--- NOTE | 2019-04-30 20:55 | NUR ---
RN NOTES CALLED AND SPOKE WITH DR. GUERIN REGARDING PATIENT CTA CHEST, ABDOMEN AND PELVIS RESULT (SEE IMAGING FOR CTA) AND MADE AWARE WHAT DR. WOODS'S OPINION.
[2019-04-30 21:33] LABS: ABG BASE EXCESS -4.2 mmol/L; ABG OXYGEN SATURATION 97.5 % (92.0-98.5); ABG PCO2 36.6 mmHg (35.0-45.0); ABG PH 7.369 (7.350-7.450); ABG PO2 151.1 mmHg (75.0-100.0); AaDO2 525.3 mmHg; COHb 0.4 % (0.5-1.5); MetHb 1.1 % (0.0-1.5); SITE, ABG Right Radial; VENT MODE, BG NONREBREATHER
--- NOTE | 2019-04-30 21:45 | NUR ---
RN NOTES INFORMED ONCALL DR. GUERIN THAT THE PATIENT IS DESATING @ 70'- 80% NON REBREATHER MASK PLACED AND PATIENT SATURATION WENT BACK TO 94% ABG DONE AND REPORTED TO DR. GUERIN WHICH HAPPEN TO BE ON THE FLOOR. FAMILY AT BEDSIDE AND SPOKE TO DR. GUERIN REGARDING THE PLAN OF CARE AND THE POSS. PLAN OF CARE TO PATIENT.
[2019-04-30] MEDS ORDERED: NTG 50 MG/D5W250 ML BOTTL 250 ML IV ONE (23:43)
[2019-05-01] VITALS (61 sets, daily range): BP systolic 122–194; BP diastolic 78–123
[2019-05-01] MEDS: NTG 50 MG/D5W250 ML BOTTL 250 ML IV PRN (00:04)
[2019-05-01] MEDS: LORAZEPAM INJ 2 MG/ML VIAL IV PRN ×3 (03:00→20:35)
[2019-05-01] MEDS: MORPHINE SULFATE INJ 2 MG/ML DISP.SYRIN IV PRN ×2 (04:29→19:56)
[2019-05-01 05:54] LABS: BASOPHILS # (AUTO) 0.1 /CMM (0.0-0.2); BASOPHILS % (AUTO) 0.5 % (0.0-2.0); LYMPHOCYTES % (AUTO) 6.1 % (20.0-44.0); MEAN CORPUSCULAR HGB CONC 33 g/dl (31.0-36.0); MEAN CORPUSCULAR VOLUME 87 fL (80-96); MONOCYTES # (AUTO) 1.4 /CMM (0.1-1.30); MONOCYTES % (AUTO) 8.4 % (2.0-12.0); NEUTROPHILS # (AUTO) 13.8 /CMM (1.8-8.9); PLATELET COUNT (AUTO) 106 /CMM (150-450); RED BLOOD CELL COUNT(AUTO) 2.33 MIL/uL (4.5-6.0); WHITE BLOOD COUNT (AUTO) 16.2 K/uL (4.3-11.0)
[2019-05-01 06:00] LABS: HEMATOCRIT 20 % (39-51); HEMOGLOBIN 6.8 g/dL (13.5-17.5)
[2019-05-01 06:07] LABS: CALCIUM, SERUM 7.7 mg/dL (8.5-10.1); CARBON DIOXIDE 27 mmol/L (21-32); CHLORIDE 109 mmol/L (98-107); CREATININE 5.6 mg/dL (0.6-1.3); GLUCOSE 105 mg/dL (74-106); MAGNESIUM 2.1 mg/dL (1.8-2.4); PHOSPHORUS 7.4 mg/dL (2.5-4.9); POTASSIUM 4.8 mmol/L (3.5-5.1); SODIUM SERUM 145 mmol/L (136-145); UREA NITROGEN, BLOOD 52 mg/dL (7-18)
--- NOTE | 2019-05-01 06:29 | NUR ---
RN NOTES CALLED AND SPOKE TO DR. GUERIN ABOUT CRITICAL HGB 6.8 AND HCT 20 WITH ORDER TO GIVE ANOTHER 1 UNIT OF PRBC NOTED AND CARRIED OUT ORDER
[2019-05-01 06:40] LABS: LYMPHOCYTES % (MANUAL) 5 % (16-48); MONOCYTES % (MANUAL) 5 % (0-11.0); NEUTROPHILS % (MANUAL) 90 (42-76)
--- NOTE | 2019-05-01 07:15 | NUR ---
RN NOTES PATIENT ON DIALYSIS, MAKE PATIENT COMFORTABLE IN BED. ATIVAN ADMINISTERED PT STARTED TO GET RESTLESS WHILE ON DIALYSIS. 1 UNIT OF PRBC WILL BE GIVEN. NO ACTIVE BLEEDING PRESENT. PT REMAINED ON NON REBREATHER MASK CLEMENT 96%. AFEBRILE. NITRODRIP CONTINUE TITRATED ORDERED. SPOKE WITH DR. HAYWARD AND MADE AWARE ABOUT PATIENT CONDITION. PER MD US ON BUE AND BLE SHOULD BE STAT. ORDER CHANGED. 1 PRBC, 2 CRYOPRECIPITATE AND 1 PLASMA TRANSFUSED THIS SHIFT TOLERATED WELL. KEPT PT CLEAN AND COMFORTABLE IN BED. ENDORSED CONTINUITY OFCARE TO AM NURSE.
[2019-05-01] MEDS: ENSURE CLEAR 237 ML LIQUID (MIX BERRY) PO SCH ×2 (08:00→16:42)
[2019-05-01] MEDS: LINEZOLID RTU BAG 600 MG in PREMIX 1 EA IV SCH ×2 (08:57→20:12)
[2019-05-01] MEDS: methylPREDNISolone SOD SUCC 125 MG/2ML VIAL IV SCH ×3 (08:58→16:42)
[2019-05-01] MEDS: MUPIROCIN OINT 2% 22 GM TUBE SCH ×2 (08:58→20:41)
[2019-05-01] MEDS: hydrALAZINE HCL 50 MG TABLET PO SCH ×3 (08:58→16:42)
[2019-05-01] MEDS: PANTOPRAZOLE 40 MG VIAL IV SCH ×2 (08:58→20:12)
[2019-05-01] MEDS: CLOTRIMAZOLE 1% 15 GM TUBE TP SCH ×2 (08:59→16:42)
--- NOTE | 2019-05-01 10:17 | NUR ---
RN NOTE 0715: Received patient lethargic, noted with confusion. With CERTIFIED BENCH JEWELER TECHNICIAN restraints for safety. On 12LPM of O2 via NRB mask, sat 95%. SR 90's on the monitor. No c/o pain at this time. IRAM midline intact, on Nitro drip, will titrate as ordered. Right fem HD cath intact, HD ongoing, tolerated at this time. RCW portacath. With diapers on, no BM yet, continue monitoring for bleeding. blood transfused by HD nurse with HD. No reactions noted at this time. On isolation prec for MRSA nares, maintained and observed. Awaitng BUE and BLE venous dopplers per Dr. Nunez, plan for IVC filter placement. 0900: Tried to titrate O2 to 10LPM via oxymask, noted with desat 85-89, placed back on 12 LPM O2 via NRB. 0930: Dome woth HD, 2000mL out per HD nurse, DC'd Nitro drip, will start on nitro paste and new BP meds. 1015: No any significant changes noted at this time. Kept clean, warm and dry. Needs attended. Followed up with US re: dopplers, still awaiting.
--- NOTE | 2019-05-01 12:32 | NUR ---
RN NOTE US tech endorsed right upper arm cephalic vein DVT, no DVT's on BLE. Made Dr. Nunez aware, with order to place on BLE SCDDs and no IVC filter needed at this time.
[2019-05-01] MEDS: NITROGLYCERIN 30 GM TUBE TP SCH ×2 (12:54→20:13)
[2019-05-01] MEDS ORDERED: PHYTONADIONE INJ 10 MG/1 ML AMPUL SQ ONE (14:00)
--- NOTE | 2019-05-01 14:26 | NUR ---
RN NOTE S/E by Dr. Fuller, with order for stat PTT, Fibrinogen, will follow up with H/H. ordered Vit K 10mg. Also updated Dr. Mendoza.
[2019-05-01 14:46] LABS: HEMOGLOBIN 8.4 g/dL (13.5-17.5)
[2019-05-01] MEDS: METOPROLOL SUCCINATE 50 MG TAB.SR.24H PO SCH (14:55)
--- NOTE | 2019-05-01 20:00 | NUR ---
RN NOTES PATIENT IS MORE AWAKE WITH NON REBREATHER MASK @ 12LPM SATURATION 95%. AFEBRILE. SBP IS HIGH TO 160'S AND 170'S MORPHINE ADMINISTERED ORDERED FOR POSS. PAIN DUE TO TACHYCARDIA AND HTN. NODS FOR PAIN, UNABLE TO SCALE PAIN. IV SITE ON IRAM MIDLINE INTACT AND PATENT ST ON TELE MONITOR. RCW DIAZ CATH AND RIGHT FEMORAL HD CATH ARE CLEAN AND DRY. SCHNEIDER CATH OFF FROM THE FLOOR WITH SMALL AMT OF DARK COLOR URINE. BILATERAL DVT PUMP KEPT ON. KEPT PT CLEAN AND DRY WILL CLOSELY MONITOR.
[2019-05-01] MEDS: CEFEPIME 2 GM in IV D5W 100 ML IV SCH (20:11)
--- NOTE | 2019-05-01 22:00 | NUR ---
RN NOTES SPOKE WITH DR. GUERIN ON THE FLOOR REGARDING PATIENT BP WITH NEW ORDER TO GIVE HYDRALAZINE 10 MG IVP ONCE AND IF ITS EFFECTIVE TO ORDER HYDRALAZINE 10 MG IVP Q6H PRN FOR SBP >160MMHG. NOTED AND CARRIED OUT ORDER
[2019-05-01 22:19] LABS: HEMOGLOBIN 8.4 g/dL (13.5-17.5)
[2019-05-01] MEDS ORDERED: hydrALAZINE HCL IV 20 MG VIAL IV STA (22:50)
[2019-05-02] VITALS (30 sets, daily range): BP systolic 129–179; BP diastolic 78–117
[2019-05-02] MEDS: LORAZEPAM INJ 2 MG/ML VIAL IV PRN ×2 (00:57→20:34)
[2019-05-02] MEDS: hydrALAZINE HCL IV 20 MG VIAL IV PRN ×3 (04:20→22:43)
[2019-05-02] MEDS: MORPHINE SULFATE INJ 2 MG/ML DISP.SYRIN IV PRN (04:20)
[2019-05-02 04:47] LABS: ALANINE AMINOTRANSFERASE 11 U/L (12-78); ALBUMIN 2.1 g/dL (3.4-5.0); ALKALINE PHOSPHATASE 71 U/L (46-116); ASPARTATE AMINOTRANSFERASE 34 U/L (15-37); BILIRUBIN,TOTAL 0.6 mg/dL (0.2-1.0); CALCIUM, SERUM 8.1 mg/dL (8.5-10.1); CARBON DIOXIDE 26 mmol/L (21-32); CHLORIDE 104 mmol/L (98-107); CREATININE 4.7 mg/dL (0.6-1.3); GLUCOSE 134 mg/dL (74-106); MAGNESIUM 2.2 mg/dL (1.8-2.4); PHOSPHORUS 7.1 mg/dL (2.5-4.9); POTASSIUM 4.4 mmol/L (3.5-5.1); SODIUM SERUM 142 mmol/L (136-145); UREA NITROGEN, BLOOD 42 mg/dL (7-18)
[2019-05-02 04:53] LABS: BASOPHILS % (AUTO) 0.2 % (0.0-2.0); EOSINOPHILS % (AUTO) 0.1 % (0.0-6.0); HEMATOCRIT 27 % (39-51); HEMOGLOBIN 8.8 g/dL (13.5-17.5); LYMPHOCYTES % (AUTO) 5.2 % (20.0-44.0); MEAN CORPUSCULAR HGB CONC 33 g/dl (31.0-36.0); MEAN CORPUSCULAR VOLUME 87 fL (80-96); MONOCYTES # (AUTO) 1.1 /CMM (0.1-1.30); MONOCYTES % (AUTO) 5.7 % (2.0-12.0); NEUTROPHILS # (AUTO) 17.2 /CMM (1.8-8.9); NEUTROPHILS % (AUTO) 88.8 % (43.0-81.0); PLATELET COUNT (AUTO) 55 /CMM (150-450); RED BLOOD CELL COUNT(AUTO) 3.05 MIL/uL (4.5-6.0); WHITE BLOOD COUNT (AUTO) 19.4 K/uL (4.3-11.0)
[2019-05-02 05:22] LABS: LYMPHOCYTES % (MANUAL) 3 % (16-48); MONOCYTES % (MANUAL) 3 % (0-11.0); NEUTROPHILS % (MANUAL) 94 (42-76)
--- NOTE | 2019-05-02 06:47 | NUR ---
RN NOTES PATIENT IS RESTING AT THIS TIME WITH NON REBREATHER MASK @ 15 LPM SATURATION KEPT >92%REMAINED ST ON TELE MONITOR HR 100'S- 110'S. AFEBRILE. SBP REMAINED ON 150'S - 170'S MD AWARE PRN MEDICINE HELP FOR AWHILE, DR. PENNINGTON ON THE FLOOR AND MADE AWARE ABOUT BLOOD PRESSURE. KEPT PT CLEAN AND DRY.. TURNED AND REPOSITIONED Q2H AND PRN. KEPT PT CLEAN AND COMFORTABLE IN BED. ADMINISTERED MEDICINE ORDERED WITHOUT ASE NOTED. WILL ENDORSED CONTINUITY OF CARE TO AM NURSE.
[2019-05-02 08:00] LABS: ABG BASE EXCESS -2.7 mmol/L; ABG OXYGEN SATURATION 91.1 % (92.0-98.5); ABG PCO2 36.7 mmHg (35.0-45.0); ABG PH 7.393 (7.350-7.450); ABG PO2 64.3 mmHg (75.0-100.0); COHb 0.1 % (0.5-1.5); MetHb 0.5 % (0.0-1.5); O2Hb 90.6 % (94.0-97.0); SITE, ABG Left Radial; VENT MODE, BG NRB MASK
[2019-05-02] MEDS: ENSURE CLEAR 237 ML LIQUID (MIX BERRY) PO SCH ×2 (08:00→16:14)
[2019-05-02] MEDS: methylPREDNISolone SOD SUCC 125 MG/2ML VIAL IV SCH ×3 (08:45→14:30)
[2019-05-02] MEDS: PANTOPRAZOLE 40 MG VIAL IV SCH ×2 (08:45→21:20)
[2019-05-02] MEDS: ISOSORBIDE DINITRATE (20MG) 20 MG TABLET PO SCH ×3 (08:46→16:15)
[2019-05-02] MEDS: NIFEdipine XL (30MG) 30 MG TAB PO SCH (08:46)
[2019-05-02] MEDS: MUPIROCIN OINT 2% 22 GM TUBE SCH ×2 (08:47→21:22)
[2019-05-02] MEDS: CLOTRIMAZOLE 1% 15 GM TUBE TP SCH ×2 (08:47→16:15)
[2019-05-02] MEDS: hydrALAZINE HCL 25 MG TABLET PO PRN (08:49)
[2019-05-02] MEDS: LINEZOLID RTU BAG 600 MG in PREMIX 1 EA IV SCH (08:49)
[2019-05-02] MEDS: hydrALAZINE HCL 50 MG TABLET PO SCH ×3 (08:50→16:14)
--- NOTE | 2019-05-02 09:33 | NUR ---
RN NOTE 0715: Received patient awake, alert to name but noted with confusion and agitation, removes O2 NRB mask at times and gets desat easily. Kept PLANT MAINTENANCE WORKER restraints on for safety. Remained on 15LPM of O2 via NRB mask. BP high, new orders from cardio noted. Awaiting midline re insertion. Uses Right fem pigtail for now. Henson cath intact, minimal dark tea colored urine noted. With SCD's on. Isolation prec for MRSA nares, maintained and observed. 0900: S/E by Dr. Mendoza, noted with desat, patient tries to removes O2 supply. aware for ABG, with order to place patient on Bipap. 0930: Patient on Bipap, tolerated at this time. Will continue to monitor. Will keep NPO for now, Still noted with high BP, will contoinue to monitor, able to get aam PO doses.
[2019-05-02] MEDS: METOPROLOL SUCCINATE 50 MG TAB.SR.24H PO SCH (10:30)
[2019-05-02] MEDS: IV D5/0.45 NACL 1,000 ML IV PRN (13:05)
--- NOTE | 2019-05-02 13:27 | NUR ---
MIDLINE INSERTION Patient prepped with CHG normal sterile fashion. US used to visualize an appropriate vein suited for midline insertion. With US guidance the midline catheter device was placed and positioned into the vein with intl length=10 cms,. Good blood return noted. Secured in place with interlock device. Guardiva palced and secured with sterile dressing. Patient cathi procedure well.with minimal blood loss.
[2019-05-02 14:07] LABS: *ANCANTIMYELOPEROXIDASE (MPO) <9.0 U/mL (0.0-9.0); *ANCANTIPROTEINASE 3 (PR-3) AB 17.2 U/mL (0.0-3.5)
--- NOTE | 2019-05-02 18:32 | NUR ---
RN NOTE Done with HD, HD nurse reported 3500mL out. IVF infusing as ordered. Remained on Bipap. Noted with agitation at times, trying to remove Bipap mask. VENEER MARKER on for safety. Isolation prec maintained and observed. kept clean, warm and dry. Needs attended.
[2019-05-02] MEDS ORDERED: FEE PK DOSING 1 MIN EA MC ONE (19:21)
--- NOTE | 2019-05-02 19:55 | NUR ---
RT NOTE PT RECEIVED ON BIPAP. MASK SECURED WITH MEPILEX. PT AWAKE/ALERT. NO DISTRESS NOTED AT THIS TIME. WILL CONTINUE TO MONITOR CLOSELY. BIPAP PLUGGED TO RED OUTLET. Addendum: 05/02/19 at 1956 by PATRICA HDZ RT Amended: Links added.
[2019-05-02] MEDS ORDERED: VANCOMYCIN 1 GM in IV D5W 250 ML IV ONE (20:00)
[2019-05-02 20:01] LABS: HEMOGLOBIN 8.7 g/dL (13.5-17.5)
[2019-05-02] MEDS: MEROPENEM 500 MG in IV NS 0.9% 50 ML IV SCH (21:20)
--- NOTE | 2019-05-02 22:30 | NUR ---
patient's b/p is 169/99 HR 114. MD GUERIN NOTIFIED AND NEW TELEPHONE ORDER OF HYDRALAZINE 10MG IV Q4HR RECEIVED. ORDER READ BACK AND VERIFICATION HAS BEEN DONE. WILL ADMINISTER THE MEDICATION AND WILL CONTINUE TO MONITOR PATIENT CLOSELY.
[2019-05-03] VITALS (38 sets, daily range): BP systolic 143–187; BP diastolic 82–127
[2019-05-03] MEDS: LORAZEPAM INJ 2 MG/ML VIAL IV PRN ×2 (01:07→05:14)
[2019-05-03] MEDS: hydrALAZINE HCL IV 20 MG VIAL IV PRN ×5 (03:09→21:15)
[2019-05-03] MEDS: IV D5/0.45 NACL 1,000 ML IV PRN (05:07)
[2019-05-03 05:36] LABS: HEMATOCRIT 24 % (39-51); LYMPHOCYTES # (AUTO) 1.2 /CMM (0.8-4.8); LYMPHOCYTES % (AUTO) 5.9 % (20.0-44.0); MEAN CORPUSCULAR HGB CONC 33 g/dl (31.0-36.0); MEAN CORPUSCULAR VOLUME 87 fL (80-96); MONOCYTES # (AUTO) 1.7 /CMM (0.1-1.30); MONOCYTES % (AUTO) 8.3 % (2.0-12.0); NEUTROPHILS # (AUTO) 17.5 /CMM (1.8-8.9); NEUTROPHILS % (AUTO) 85.8 % (43.0-81.0); PLATELET COUNT (AUTO) 52 /CMM (150-450); RED BLOOD CELL COUNT(AUTO) 2.79 MIL/uL (4.5-6.0); WHITE BLOOD COUNT (AUTO) 20.4 K/uL (4.3-11.0)
[2019-05-03 05:59] LABS: CALCIUM, SERUM 8.2 mg/dL (8.5-10.1); CARBON DIOXIDE 24 mmol/L (21-32); CHLORIDE 106 mmol/L (98-107); CREATININE 3.9 mg/dL (0.6-1.3); GLUCOSE 141 mg/dL (74-106); MAGNESIUM 2.1 mg/dL (1.8-2.4); PHOSPHORUS 4.6 mg/dL (2.5-4.9); POTASSIUM 3.9 mmol/L (3.5-5.1); SODIUM SERUM 142 mmol/L (136-145); UREA NITROGEN, BLOOD 35 mg/dL (7-18)
[2019-05-03 06:35] LABS: BAND % (MANUAL) 5 % (0.0-5.0); LYMPHOCYTES % (MANUAL) 4 % (16-48); METAMYELOCYTES % 1 % (0-0); MONOCYTES % (MANUAL) 4 % (0-11.0); MYELOCYTES % 1 % (0-0); NEUTROPHILS % (MANUAL) 85 (42-76)
[2019-05-03] MEDS ORDERED: VANCOMYCIN 500 MG in IV D5W 100 ML IV PRN (07:00)
[2019-05-03] MEDS: ENSURE CLEAR 237 ML LIQUID (MIX BERRY) PO SCH ×2 (07:56→16:28)
[2019-05-03] MEDS: NIFEdipine XL (30MG) 30 MG TAB PO SCH (08:04)
[2019-05-03] MEDS: PANTOPRAZOLE 40 MG VIAL IV SCH ×2 (08:04→20:20)
[2019-05-03] MEDS: hydrALAZINE HCL 50 MG TABLET PO SCH ×3 (08:04→16:28)
[2019-05-03] MEDS: MUPIROCIN OINT 2% 22 GM TUBE SCH ×2 (08:04→20:21)
[2019-05-03] MEDS: ISOSORBIDE DINITRATE (20MG) 20 MG TABLET PO SCH ×2 (08:04→16:28)
[2019-05-03] MEDS: methylPREDNISolone SOD SUCC 125 MG/2ML VIAL IV SCH (08:04)
[2019-05-03] MEDS: CLOTRIMAZOLE 1% 15 GM TUBE TP SCH ×2 (08:05→16:29)
[2019-05-03] MEDS: MEROPENEM 500 MG in IV NS 0.9% 50 ML IV SCH ×2 (08:08→20:20)
[2019-05-03 08:31] LABS: ABG BASE EXCESS 2.3 mmol/L; ABG OXYGEN SATURATION 90.1 % (92.0-98.5); ABG PCO2 32.8 mmHg (35.0-45.0); ABG PH 7.505 (7.350-7.450); ABG PO2 55.9 mmHg (75.0-100.0); AaDO2 191.6 mmHg; COHb 0.5 % (0.5-1.5); MetHb 0.7 % (0.0-1.5); SITE, ABG Right Radial; VENT MODE, BG ST 20/10 RR16 40%
--- NOTE | 2019-05-03 09:11 | NUR ---
RN NOTE 0715: Received patient resting in bed. On Bipap, no respiratory distress noted at this time. Noted with restlessness at times. Kept TEAM PRIMARY CARE PHYSICIAN restraints on for safety. RICKEY midline intact. right fem HD cath intact. Iso prec for MRSA nares, maintained and observed. SCD on. Henson cath intact, noted with minimal dark colored urine drained to BSD. 0900: No significant changes. ABG done, placed FIO2 to 50%. Will keep Bipap on.
[2019-05-03] MEDS: METOPROLOL SUCCINATE 50 MG TAB.SR.24H PO SCH (10:30)
[2019-05-03] MEDS: CLONIDINE HCL 0.3 MG/24H PTWK 1 EA PATCH TD SCH (13:50)
--- NOTE | 2019-05-03 14:16 | NUR ---
RN NOTE 1315: Made Dr. Forte aware for SBP 170's, given PRN Hydralazine IVP q4. MD ordered Clonidine TTS 3. 1330: S/E by Dr. Fuller, family at bedside, MD discussed POC with family. No anticoags for now for trending down Hgb. Continue H/H checking. 1400: S/E by Dr. Liu, with order of ABG 1430, no intubation needed for now. Patient is arousable.
[2019-05-03 14:32] LABS: HEMOGLOBIN 7.8 g/dL (13.5-17.5)
[2019-05-03 14:34] LABS: ABG OXYGEN SATURATION 94.8 % (92.0-98.5); ABG PCO2 29.6 mmHg (35.0-45.0); ABG PH 7.487 (7.350-7.450); ABG PO2 81.3 mmHg (75.0-100.0); AaDO2 241.9 mmHg; COHb 0.3 % (0.5-1.5); MetHb 1.2 % (0.0-1.5); O2Hb 93.4 % (94.0-97.0); SITE, ABG Left Radial; VENT MODE, BG ST 20/10 BUR16
[2019-05-03] MEDS: MORPHINE SULFATE INJ 2 MG/ML DISP.SYRIN IV PRN (20:20)
--- NOTE | 2019-05-03 23:20 | NUR ---
BLOOD INFUSED WOTHOUT ANY S/S OF REACTION
[2019-05-04] VITALS (42 sets, daily range): BP systolic 115–226; BP diastolic 75–132
[2019-05-04] MEDS: hydrALAZINE HCL IV 20 MG VIAL IV PRN ×4 (01:20→15:48)
[2019-05-04] MEDS ORDERED: hydrALAZINE HCL IV 20 MG VIAL ONE (04:54)
[2019-05-04 04:57] LABS: BASOPHILS # (AUTO) 0.1 /CMM (0.0-0.2); BASOPHILS % (AUTO) 0.6 % (0.0-2.0); HEMATOCRIT 29 % (39-51); HEMOGLOBIN 9.5 g/dL (13.5-17.5); LYMPHOCYTES # (AUTO) 1.1 /CMM (0.8-4.8); LYMPHOCYTES % (AUTO) 5.6 % (20.0-44.0); MEAN CORPUSCULAR HGB CONC 33 g/dl (31.0-36.0); MEAN CORPUSCULAR VOLUME 88 fL (80-96); MONOCYTES # (AUTO) 1.4 /CMM (0.1-1.30); MONOCYTES % (AUTO) 6.9 % (2.0-12.0); NEUTROPHILS # (AUTO) 17.3 /CMM (1.8-8.9); NEUTROPHILS % (AUTO) 86.9 % (43.0-81.0); PLATELET COUNT (AUTO) 60 /CMM (150-450); RED BLOOD CELL COUNT(AUTO) 3.25 MIL/uL (4.5-6.0); WHITE BLOOD COUNT (AUTO) 19.9 K/uL (4.3-11.0)
[2019-05-04] MEDS: MORPHINE SULFATE INJ 2 MG/ML DISP.SYRIN IV PRN (05:05)
[2019-05-04] MEDS: LORAZEPAM INJ 2 MG/ML VIAL IV PRN (05:05)
[2019-05-04 05:25] LABS: CALCIUM, SERUM 8.3 mg/dL (8.5-10.1); CARBON DIOXIDE 23 mmol/L (21-32); CHLORIDE 107 mmol/L (98-107); CREATININE 4.5 mg/dL (0.6-1.3); GLUCOSE 101 mg/dL (74-106); MAGNESIUM 2.2 mg/dL (1.8-2.4); PHOSPHORUS 5.8 mg/dL (2.5-4.9); POTASSIUM 4.3 mmol/L (3.5-5.1); SODIUM SERUM 143 mmol/L (136-145); UREA NITROGEN, BLOOD 44 mg/dL (7-18)
--- NOTE | 2019-05-04 05:50 | NUR ---
INFORMED OF HTN, ORDERS OBTAINED
[2019-05-04] MEDS ORDERED: LABETALOL 20 MG/4 ML VIAL IV ONE (06:00)
[2019-05-04 06:15] LABS: BAND % (MANUAL) 2 % (0.0-5.0); LYMPHOCYTES % (MANUAL) 10 % (16-48); MONOCYTES % (MANUAL) 12 % (0-11.0); NEUTROPHILS % (MANUAL) 76 (42-76)
[2019-05-04] MEDS: LABETALOL HCL IV 100MG VIAL IV PRN ×2 (06:22→06:24)
[2019-05-04] MEDS: ENSURE CLEAR 237 ML LIQUID (MIX BERRY) PO SCH ×2 (07:31→16:09)
--- NOTE | 2019-05-04 07:55 | NUR ---
RT PATIENT REC'D ON BIPAP WITH ORDERED SETTINGS CLEMENT WELL. ALARMS CHECKED + AUDIBLE. JULIO CESAR PIEDRA AT HOB. CONT CURRENT PLAN OF RESP CARE. Addendum: 05/04/19 at 1231 by MICHELLE HAMMER RT Amended: Links added.
[2019-05-04] MEDS: NITROGLYCERIN 30 GM TUBE TP SCH ×2 (08:00→20:49)
[2019-05-04] MEDS: PANTOPRAZOLE 40 MG VIAL IV SCH ×2 (08:03→20:51)
[2019-05-04] MEDS: methylPREDNISolone SOD SUCC 125 MG/2ML VIAL IV SCH (08:03)
[2019-05-04] MEDS: NIFEdipine XL (30MG) 30 MG TAB PO SCH (08:04)
[2019-05-04] MEDS: MEROPENEM 500 MG in IV NS 0.9% 50 ML IV SCH ×2 (08:04→20:49)
[2019-05-04] MEDS: hydrALAZINE HCL 50 MG TABLET PO SCH ×3 (08:04→16:09)
[2019-05-04] MEDS: MUPIROCIN OINT 2% 22 GM TUBE SCH ×2 (08:04→20:52)
[2019-05-04] MEDS: ISOSORBIDE DINITRATE (20MG) 20 MG TABLET PO SCH ×2 (08:04→16:09)
[2019-05-04] MEDS: CLOTRIMAZOLE 1% 15 GM TUBE TP SCH ×2 (08:04→16:09)
[2019-05-04 08:39] LABS: ABG BASE EXCESS 0.6 mmol/L; ABG PCO2 35.8 mmHg (35.0-45.0); ABG PH 7.451 (7.350-7.450); ABG PO2 80.4 mmHg (75.0-100.0); AaDO2 163.6 mmHg; COHb 0.3 % (0.5-1.5); MetHb 0.4 % (0.0-1.5); O2Hb 94.3 % (94.0-97.0); SITE, ABG Left Radial; VENT MODE, BG BIPAP 20/10 R16 40%
[2019-05-04] MEDS: METOPROLOL SUCCINATE 50 MG TAB.SR.24H PO SCH (09:34)
--- NOTE | 2019-05-04 09:35 | NUR ---
RN NOTE 0715: Received patient awake, lethargic. On Bipap, no respiratory distress noted at this time. With RICKEY midline intact. Right fem HD cath intact. Henson cath intact with low UOP, dark ebony colored urine to BSD. On isolation prec for MRSA nares maintained and observed. Remained NPO. Monitored for bleeding, no active bleeding noted at this time. 0730: Still noted with high BP, SBO 180-200's. Called Dr. Forte and obtained order for Nitro 2gm top. 0800: Started on Nitro oint, will continue to monitor. 0815: S/E by Dr. Forte,BP 170-110 manually. 0900: ABG resulted, will keep on Bipap at this time. 0930: No any significant changes noted at this time.
--- NOTE | 2019-05-04 11:30 | NUR ---
RN NOTE S/E by Dr. Liu, aware for the ABG, will keep on Bipap for now.
[2019-05-04] MEDS ORDERED: LABETALOL HCL IV 100MG VIAL IV PRN (14:00)
[2019-05-04 14:12] LABS: HEMATOCRIT 28 % (39-51); HEMOGLOBIN 9.2 g/dL (13.5-17.5); MEAN CORPUSCULAR HGB CONC 33 g/dl (31.0-36.0); MEAN CORPUSCULAR VOLUME 88 fL (80-96); PLATELET COUNT (AUTO) 63 /CMM (150-450); RED BLOOD CELL COUNT(AUTO) 3.15 MIL/uL (4.5-6.0); WHITE BLOOD COUNT (AUTO) 18.9 K/uL (4.3-11.0)
[2019-05-04] MEDS: LABETALOL HCL IV 100MG VIAL IV SCH (19:00)
--- NOTE | 2019-05-04 19:30 | NUR ---
RN NOTES RECEIVED PATIENT ON DIALYSIS AT THIS TIME. AOX 2 CALM AND COOPERATIVE. AFEBRILE. ON NON REBREATHER MASK SINUS TACH ON TELE MONITOR 110'S- 120'S. WITH RICKEY MIDLINE INTACT AND PATENT. RCW DIAZ CATH AND RIGHT FEMORAL HD CATH W/ PIGTAIL. DRESSING IS CLEAN AND DRY. PER PREVIOUS SHIFT PATIENT BP IS BEEN HIGH >160'S - 200, THIS TIME DURING DIALYSIS PT BP 125/71 MMHG. PATIENT SCHNEIDER CATH KEPT OFF FROMTHE FLOOR WITH RYAN COLOR URINE. NO ACTIVE BLEEDING PRESENT BUT WILL CONTINUE TO MONITOR. H/H ORDERED. CONTINUE WITH POC.
--- NOTE | 2019-05-04 19:30 | NUR ---
RN NOTES NOTED PATIENT HAD LABETALOL 10 MG IVP @ 1900. LAST LABETALOL ORDER WAS ADMINISTERED AROUND 1400 WILL HOLD FOR NOW DUE TO SBP IS ON 120'S WILL VERIFY TO PHARMACY TO CHANGE THE TIME OR IF ITS STILL NEED TO GIVE.
--- NOTE | 2019-05-04 20:00 | NUR ---
RN NOTES DIALYSIS DONE REMOVED 3LITER PER HD NURSE. PT REQUESTED TO PLACED BACK ON BIPAP.
[2019-05-04 22:26] LABS: BASOPHILS # (AUTO) 0.1 /CMM (0.0-0.2); BASOPHILS % (AUTO) 0.3 % (0.0-2.0); HEMATOCRIT 26 % (39-51); HEMOGLOBIN 8.7 g/dL (13.5-17.5); LYMPHOCYTES # (AUTO) 0.6 /CMM (0.8-4.8); LYMPHOCYTES % (AUTO) 4.1 % (20.0-44.0); MEAN CORPUSCULAR HGB CONC 33 g/dl (31.0-36.0); MEAN CORPUSCULAR VOLUME 88 fL (80-96); MONOCYTES # (AUTO) 1.3 /CMM (0.1-1.30); NEUTROPHILS # (AUTO) 13.7 /CMM (1.8-8.9); NEUTROPHILS % (AUTO) 87.6 % (43.0-81.0); WHITE BLOOD COUNT (AUTO) 15.7 K/uL (4.3-11.0)
[2019-05-04 22:28] LABS: PLATELET COUNT (AUTO) 48 /CMM (150-450)
[2019-05-04] MEDS ORDERED: VANCOMYCIN 1 GM VIAL ONE (22:37)
--- NOTE | 2019-05-04 23:00 | NUR ---
RN NOTES CALLED PHARMACY AND SPOKE TO OFELIA INFORMED REGARDING PATIENT LABETALOL 10MG IVP WAS GIVEN AROUND 1400 AND PATIENT DUE AT 1900 AND THE ROUTINE ORDER IS Q12H PER PHARMACY NOT TO GIVE THE MEDICINE AT 1900 WILL GIVE IT IN THE MORNING. NOTED.
[2019-05-04 23:37] LABS: EOSINOPHILS % (MANUAL) 1 % (0-4); LYMPHOCYTES % (MANUAL) 5 % (16-48); MONOCYTES % (MANUAL) 8 % (0-11.0); NEUTROPHILS % (MANUAL) 86 (42-76)
[2019-05-05] VITALS (19 sets, daily range): BP systolic 93–170; BP diastolic 51–111
--- NOTE | 2019-05-05 03:30 | NUR ---
RN NOTES PT PLACED ON O2 6LPM VIA NC SATURATION REMAINED 98%. NO RESTLESS NOTED. REMAINED CALM AND COOPERATIVE, DENIES PAIN.
[2019-05-05] MEDS: hydrALAZINE HCL IV 20 MG VIAL IV PRN ×3 (03:55→16:08)
[2019-05-05 05:48] LABS: BASOPHILS % (AUTO) 0.1 % (0.0-2.0); EOSINOPHILS % (AUTO) 0.2 % (0.0-6.0); HEMATOCRIT 27 % (39-51); HEMOGLOBIN 8.8 g/dL (13.5-17.5); LYMPHOCYTES % (AUTO) 5.8 % (20.0-44.0); MEAN CORPUSCULAR HGB CONC 33 g/dl (31.0-36.0); MEAN CORPUSCULAR VOLUME 88 fL (80-96); MONOCYTES # (AUTO) 1.4 /CMM (0.1-1.30); MONOCYTES % (AUTO) 8.5 % (2.0-12.0); NEUTROPHILS # (AUTO) 14.4 /CMM (1.8-8.9); NEUTROPHILS % (AUTO) 85.4 % (43.0-81.0); PLATELET COUNT (AUTO) 56 /CMM (150-450); RED BLOOD CELL COUNT(AUTO) 3.04 MIL/uL (4.5-6.0); WHITE BLOOD COUNT (AUTO) 16.8 K/uL (4.3-11.0)
[2019-05-05 06:11] LABS: ALANINE AMINOTRANSFERASE 14 U/L (12-78); ALKALINE PHOSPHATASE 79 U/L (46-116); ASPARTATE AMINOTRANSFERASE 23 U/L (15-37); BILIRUBIN,TOTAL 0.7 mg/dL (0.2-1.0); CALCIUM, SERUM 8.1 mg/dL (8.5-10.1); CARBON DIOXIDE 26 mmol/L (21-32); CHLORIDE 107 mmol/L (98-107); CREATININE 3.6 mg/dL (0.6-1.3); GLUCOSE 94 mg/dL (74-106); MAGNESIUM 2.1 mg/dL (1.8-2.4); PHOSPHORUS 5.5 mg/dL (2.5-4.9); POTASSIUM 4.3 mmol/L (3.5-5.1); SODIUM SERUM 144 mmol/L (136-145); TOTAL PROTEIN, SERUM 5.6 g/dL (6.4-8.2); UREA NITROGEN, BLOOD 37 mg/dL (7-18)
[2019-05-05 07:02] LABS: LYMPHOCYTES % (MANUAL) 5 % (16-48); MONOCYTES % (MANUAL) 10 % (0-11.0); MYELOCYTES % 5 % (0-0); NEUTROPHILS % (MANUAL) 80 (42-76)
--- NOTE | 2019-05-05 07:15 | NUR ---
RN NOTES PATIENT REMAINED CALM AND COOPERATIVE,NO SIGNIFICANT CHANGES THROUGHOUT THE SHIFT. PATIENT TOLERATES O2 6LPM VIA NC. AFEBRILE. VSS WITHOUT PRESSOR. KEPT PT CLEAN AND DRY. SKIN CARE PROVIDED. WEEKLY ASSESSMENT DONE. ENDORSED CONTINUITY OF CARE TO AM NURSE.
[2019-05-05] MEDS: ENSURE CLEAR 237 ML LIQUID (MIX BERRY) PO SCH ×2 (08:00→16:04)
[2019-05-05] MEDS: ISOSORBIDE DINITRATE (20MG) 20 MG TABLET PO SCH ×2 (09:00→16:04)
[2019-05-05] MEDS: hydrALAZINE HCL 50 MG TABLET PO SCH ×4 (09:00→16:04)
[2019-05-05] MEDS: methylPREDNISolone SOD SUCC 125 MG/2ML VIAL IV SCH (10:10)
[2019-05-05] MEDS: PANTOPRAZOLE 40 MG VIAL IV SCH ×2 (10:11→20:46)
[2019-05-05] MEDS: NIFEdipine XL (30MG) 30 MG TAB PO SCH (10:14)
[2019-05-05] MEDS: LABETALOL HCL IV 100MG VIAL IV SCH ×2 (10:15→20:48)
[2019-05-05] MEDS: MEROPENEM 500 MG in IV NS 0.9% 50 ML IV SCH ×2 (10:16→20:46)
[2019-05-05] MEDS: MUPIROCIN OINT 2% 22 GM TUBE SCH ×2 (10:17→20:56)
[2019-05-05] MEDS: CLOTRIMAZOLE 1% 15 GM TUBE TP SCH ×2 (10:17→16:05)
[2019-05-05] MEDS: NITROGLYCERIN 30 GM TUBE TP SCH ×2 (10:22→20:54)
[2019-05-05] MEDS: METOPROLOL SUCCINATE 50 MG TAB.SR.24H PO SCH (10:30)
[2019-05-05 12:11] LABS: *ANCA CYTOPLASMIC (C-ANCA) <1:20 titer (Neg:<1:20); *ANCA PERINUCLEAR (P-ANCA) <1:20 titer (Neg:<1:20)
--- NOTE | 2019-05-05 19:30 | NUR ---
OYSTERMAN PATIENT REMAINED CALM AND COOPERATIVE , NO SIGNIFICANT CHANGES PATIENT TOLERATES OXYGEN THERAPY PRESCRIBED BY ZAYDA. PATIENT TURN AND REPOSITION Q2H. NO PAIN, NO ACUTE RESPIRATORY DISTRESS. BEDLOCKED AND LOWEST POSITION CALL LIGHT WITH IN REACH ALL SAFETY MEASURES IMPLEMENTED PER HOSPITAL POLICY
--- NOTE | 2019-05-05 19:55 | NUR ---
PERSONAL INJURY SPECIALIST PATIENT A/O X2 PATIENT IS COOPERATIVE AND ADHEREING TO TREATMENT PLAN . PATIENT IS ON NC WITH OXYGEN THERAPY PRESCRIBE BY DOCTOR. PATIENT WAS JUST TAKEN OFF BIPAP. PATIENT STILL COMPLAINS OF SOB. PATIENT IS SATURATING WELL AT 95% < . PATIENT IS ON TELE MONITOR 110- 120. WITH RICKEY MIDLINE INTACT AND PATENT RCW ZACHARY CATH AND RIGHT FEMORAL HD CATH W PIGTAIL. PATIENT BP IN THE 160'S DOCTOR IS AWARE . PATIENT HAS SCHNEIDER CATH PATENT AND INTACT. RYAN COLOR. BED LOCKED AND LOWEST POSITION CALL LIGHT WITH IN REACH ALL SAFETY MEASURE IMPLEMENTED PER HOSPITAL POLICY
--- NOTE | 2019-05-05 19:55 | NUR ---
Transferred patient to [facility] bed 102 in stable condition. Gave bedside report to Moses RN for continuity of care. Patient tolerated transfer well.
--- NOTE | 2019-05-05 20:15 | NUR ---
RN NOTE RECEIVED PT FROM DESIREE CHO FROM ICU IN STABLE CONDITION.
[2019-05-06] VITALS (8 sets, daily range): BP systolic 152–185; BP diastolic 86–121
[2019-05-06] MEDS: hydrALAZINE HCL IV 20 MG VIAL IV PRN (04:07)
--- NOTE | 2019-05-06 05:07 | NUR ---
RN NOTE @8363 HYDRALAZINE 10MG IV PRN GIVEN FOR BLOOD PRESSURE 185/121. BLOOD PRESSURE RECHECKED AND IS NOW 152/100. ALL NEEDS MET AND ATTENDED TO,
--- NOTE | 2019-05-06 06:10 | NUR ---
RN NOTE CORKY SNOW DELIVERED FROM ICU. OFFERED TO PT ORDERED BUT PT REFUSED AT THIS TIME STATING THAT HE DOES NOT WANT TO TURN UNTIL LATER. WILL ENDORSE TO MORNING SHIFT.
[2019-05-06 06:42] LABS: BASOPHILS % (AUTO) 0.1 % (0.0-2.0); EOSINOPHILS % (AUTO) 0.5 % (0.0-6.0); HEMATOCRIT 28 % (39-51); LYMPHOCYTES # (AUTO) 1.3 /CMM (0.8-4.8); LYMPHOCYTES % (AUTO) 6.7 % (20.0-44.0); MEAN CORPUSCULAR HGB CONC 33 g/dl (31.0-36.0); MEAN CORPUSCULAR VOLUME 88 fL (80-96); MONOCYTES # (AUTO) 1.6 /CMM (0.1-1.30); MONOCYTES % (AUTO) 8.1 % (2.0-12.0); NEUTROPHILS # (AUTO) 16.6 /CMM (1.8-8.9); NEUTROPHILS % (AUTO) 84.6 % (43.0-81.0); PLATELET COUNT (AUTO) 86 /CMM (150-450); RED BLOOD CELL COUNT(AUTO) 3.11 MIL/uL (4.5-6.0); WHITE BLOOD COUNT (AUTO) 19.6 K/uL (4.3-11.0)
[2019-05-06 07:03] LABS: CALCIUM, SERUM 8.5 mg/dL (8.5-10.1); CARBON DIOXIDE 23 mmol/L (21-32); CHLORIDE 108 mmol/L (98-107); CREATININE 4.3 mg/dL (0.6-1.3); GLUCOSE 82 mg/dL (74-106); MAGNESIUM 2.4 mg/dL (1.8-2.4); PHOSPHORUS 5.5 mg/dL (2.5-4.9); POTASSIUM 4.3 mmol/L (3.5-5.1); SODIUM SERUM 145 mmol/L (136-145); UREA NITROGEN, BLOOD 59 mg/dL (7-18)
--- NOTE | 2019-05-06 07:59 | NUR ---
HAN RN NOTE PATIENT IN BED ALERT AWAKE , ON 4L NC NO SOB AT THIS TIME, ON TELE MONITOR ST HR 105 , AT THIS TIME STILL NPO, RT FEM HD IN PLACE AND RICKEY MID LINE IN PLACE INTACT AND FLUSHED WELL , BED IN LOWEST AND LOCKED POSITION, WITH SCHNEIDER CATH TO GRAVITY WITH YELLOW RYAN WITH SOME BLOODY SEDIMENTS NOTES, WILL CONT TO MONITOR CLOSELY
[2019-05-06] MEDS: ENSURE CLEAR 237 ML LIQUID (MIX BERRY) PO SCH ×2 (08:00→16:20)
[2019-05-06] MEDS: PANTOPRAZOLE 40 MG VIAL IV SCH ×2 (08:16→21:33)
[2019-05-06] MEDS: MEROPENEM 500 MG in IV NS 0.9% 50 ML IV SCH (08:16)
[2019-05-06] MEDS: methylPREDNISolone SOD SUCC 125 MG/2ML VIAL IV SCH (08:16)
[2019-05-06] MEDS: NITROGLYCERIN 30 GM TUBE TP SCH ×2 (08:27→21:35)
[2019-05-06] MEDS: MUPIROCIN OINT 2% 22 GM TUBE SCH ×2 (08:32→21:35)
[2019-05-06] MEDS: CLOTRIMAZOLE 1% 15 GM TUBE TP SCH ×2 (08:33→16:25)
[2019-05-06] MEDS: hydrALAZINE HCL 50 MG TABLET PO SCH ×3 (08:43→16:24)
[2019-05-06] MEDS: NIFEdipine XL (30MG) 30 MG TAB PO SCH (08:43)
[2019-05-06] MEDS: ISOSORBIDE DINITRATE (20MG) 20 MG TABLET PO SCH ×2 (08:43→16:24)
[2019-05-06 08:53] LABS: BAND % (MANUAL) 1 % (0.0-5.0); LYMPHOCYTES % (MANUAL) 5 % (16-48); NEUTROPHILS % (MANUAL) 86 (42-76)
[2019-05-06 08:54] LABS: MONOCYTES % (MANUAL) 8 % (0-11.0)
[2019-05-06] MEDS: LABETALOL HCL IV 100MG VIAL IV SCH ×2 (09:15→21:34)
--- NOTE | 2019-05-06 10:59 | NUR ---
regina rn note consent foe us needle guided biopsy obtained , seen by dr knight notified that patient c\o sob stated patent look a little better today
--- NOTE | 2019-05-06 11:03 | NUR ---
HAN RN NOTE SEEN BY ST OK TO START CLEAR LIQUID DIET
--- NOTE | 2019-05-06 12:51 | NUR ---
KONG CHO NOTE ON HD AT THIS TIME Addendum: 05/06/19 at 1253 by ZOE MAX RN HOLD HYDRALAZINE AT THIS TIME ON HD MIQUEL F\U
--- NOTE | 2019-05-06 14:18 | NUR ---
telecom engineer note hd completed 1.7l of fluids out bp155/99
--- NOTE | 2019-05-06 15:29 | NUR ---
yousif vela applied Addendum: 05/06/19 at 1531 by ZOE MAX RN needle biopsy will be done on npo after mid night
--- NOTE | 2019-05-06 18:12 | NUR ---
telecommunications analyst note taken to ct abdomen
--- NOTE | 2019-05-06 19:05 | NUR ---
TISSUE PACKER NOTE RECEIVED PATIENT IN BED ALERT AWAKE FAMILY MEMBER @ BEDSIDE , ON 4L NC NO SOB AT THIS TIME, ON TELE MONITOR ST HR 107 , WITH RT FEM HD IN PLACE AND RICKEY MID LINE IN PLACE INTACT AND FLUSHED WELL RIGHT CHEST WALL DIAZ CATH , SAFETY MEASURE MAINTAINED BED IN LOWEST AND LOCKED POSITION, WITH SCHNEIDER CATH TO GRAVITY WITH YELLOW RYAN WITH SOME BLOODY SEDIMENTS NOTED, WILL CONT TO MONITOR CLOSELY
--- NOTE | 2019-05-06 20:30 | NUR ---
RN BUILDING NOTES RECEIEVED CALL FROM DR. NAYELI CORRAL REGARDING THE RESULTS OF CT ABDOMEN OF THE PT , SHE SAID THERE IS NO SIGNIFICANT CHANGES FROM THE 04/30/2019 RESULTS, REPORTED IT TO [facility] ONCALL DOCTOR DR. RICHMOND
[2019-05-07] VITALS (10 sets, daily range): BP systolic 85–172; BP diastolic 41–107
[2019-05-07] MEDS: hydrALAZINE HCL IV 20 MG VIAL IV PRN ×2 (00:02→05:38)
--- NOTE | 2019-05-07 02:28 | NUR ---
FUEL ISLAND ATTENDANT NOTES BP RECHECKED 158/103 HR 100 O2 SAT 92%
[2019-05-07 06:30] LABS: BASOPHILS % (AUTO) 0.1 % (0.0-2.0); EOSINOPHILS % (AUTO) 0.4 % (0.0-6.0); HEMATOCRIT 27 % (39-51); HEMOGLOBIN 8.7 g/dL (13.5-17.5); LYMPHOCYTES # (AUTO) 1.3 /CMM (0.8-4.8); LYMPHOCYTES % (AUTO) 8.1 % (20.0-44.0); MEAN CORPUSCULAR HGB CONC 33 g/dl (31.0-36.0); MEAN CORPUSCULAR VOLUME 88 fL (80-96); MONOCYTES # (AUTO) 1.7 /CMM (0.1-1.30); MONOCYTES % (AUTO) 10.1 % (2.0-12.0); NEUTROPHILS # (AUTO) 13.2 /CMM (1.8-8.9); NEUTROPHILS % (AUTO) 81.3 % (43.0-81.0); PLATELET COUNT (AUTO) 92 /CMM (150-450); RED BLOOD CELL COUNT(AUTO) 3.01 MIL/uL (4.5-6.0); WHITE BLOOD COUNT (AUTO) 16.3 K/uL (4.3-11.0)
--- NOTE | 2019-05-07 06:46 | NUR ---
BREAST SPLITTER NOTES BP RECHECKED 157/94 HR 103
[2019-05-07 07:02] LABS: ALANINE AMINOTRANSFERASE 6 U/L (12-78); ALBUMIN 1.9 g/dL (3.4-5.0); ALKALINE PHOSPHATASE 69 U/L (46-116); ASPARTATE AMINOTRANSFERASE 30 U/L (15-37); BILIRUBIN,TOTAL 0.9 mg/dL (0.2-1.0); CALCIUM, SERUM 7.9 mg/dL (8.5-10.1); CARBON DIOXIDE 25 mmol/L (21-32); CHLORIDE 106 mmol/L (98-107); CREATININE 3.4 mg/dL (0.6-1.3); GLUCOSE 70 mg/dL (74-106); POTASSIUM 4.3 mmol/L (3.5-5.1); SODIUM SERUM 142 mmol/L (136-145); TOTAL PROTEIN, SERUM 5.4 g/dL (6.4-8.2); UREA NITROGEN, BLOOD 49 mg/dL (7-18)
--- NOTE | 2019-05-07 07:20 | NUR ---
RN CLOSING NOTES PT ON STABLE CONDITION NO SIGN AND SYMPTOMS OF RESPIRATORY DISTRESS, NO PAIN NOTED ON TELE MONITOR WITH READING ST 100'S, NO SIGNIFICANT CHANGES ON CONDITION NOTED ALL NEEDS ATTENDED SAFETY MEASURE MAINTAINED, BED ON LOWEST POSITION AND LOCK SIDE RAILS UP X2 CALL LIGHT WITHIN REACH WILL ENDORSE TO AM SHIFT NURSE
[2019-05-07] MEDS: ENSURE CLEAR 237 ML LIQUID (MIX BERRY) PO SCH ×2 (08:00→18:37)
[2019-05-07 08:11] LABS: LYMPHOCYTES % (MANUAL) 6 % (16-48); NEUTROPHILS % (MANUAL) 79 (42-76)
[2019-05-07 08:12] LABS: EOSINOPHILS % (MANUAL) 2 % (0-4); MONOCYTES % (MANUAL) 13 % (0-11.0)
[2019-05-07] MEDS: hydrALAZINE HCL 50 MG TABLET PO SCH ×3 (09:00→15:52)
[2019-05-07] MEDS: LABETALOL HCL IV 100MG VIAL IV SCH ×2 (09:00→20:35)
[2019-05-07] MEDS: PANTOPRAZOLE 40 MG VIAL IV SCH ×2 (09:14→20:34)
[2019-05-07] MEDS: methylPREDNISolone SOD SUCC 125 MG/2ML VIAL IV SCH (09:15)
[2019-05-07] MEDS: NITROGLYCERIN 30 GM TUBE TP SCH ×2 (09:16→20:34)
[2019-05-07] MEDS: CLOTRIMAZOLE 1% 15 GM TUBE TP SCH ×2 (09:46→18:40)
[2019-05-07] MEDS: MUPIROCIN OINT 2% 22 GM TUBE SCH ×2 (09:47→18:37)
--- NOTE | 2019-05-07 11:15 | NUR ---
WOUND CARE CONSULT: PT PRESENTS WITH RASH TO GROIN FOLDS, PERINEUM AND INNER BUTTOCKS. RECOMMENDATIONS MADE FOR SKIN PROTECTION. DISCUSSED WITH NURSING STAFF. WILL SEE PRN. CURRENT JOANNE SCORE IS 14. PT ON FIRST STEP [facility] LOW AIRLOSS MATTRESS.
[2019-05-07] MEDS: ISOSORBIDE DINITRATE (20MG) 20 MG TABLET PO SCH ×2 (11:37→15:53)
[2019-05-07] MEDS: METOPROLOL SUCCINATE 50 MG TAB.SR.24H PO SCH (11:37)
[2019-05-07] MEDS: NIFEdipine XL (30MG) 30 MG TAB PO SCH (14:09)
--- NOTE | 2019-05-07 17:16 | NUR ---
call out to dr. davila regarding bp drop orders given.
--- NOTE | 2019-05-07 17:36 | NUR ---
received orders from dr. davila.dr. varela here at this time and requesting f/cath to be flushed as rn mentioned to md apparent blood in urine.estrada flushed with 100 ml and pink tinged urine returned.additionally mentioned pt. coughed up small amt. of sputum with blood in it.does have humidified o2.
--- NOTE | 2019-05-07 18:00 | NUR ---
no change in pt. status.
--- NOTE | 2019-05-07 19:05 | NUR ---
SALES EXPERT NOTE RECEIVED PATIENT IN BED ALERT AWAKE ON 4L NC NO SOB AT THIS TIME, ON TELE MONITOR SR HR 90 , WITH RT FEM HD IN PLACE AND RICKEY MID LINE IN PLACE INTACT AND FLUSHED WELL RIGHT CHEST WALL DIAZ CATH , SAFETY MEASURE MAINTAINED BED IN LOWEST AND LOCKED POSITION, WITH SCHNEIDER CATH TO GRAVITY TEA COLORED URINE WITH SOME BLOODY SEDIMENTS NOTED, WILL CONT TO MONITOR CLOSELY
[2019-05-08] VITALS: BP 153/74
[2019-05-08 04:00] VITALS: BP 176/94
[2019-05-08] MEDS: hydrALAZINE HCL IV 20 MG VIAL IV PRN (04:39)
--- NOTE | 2019-05-08 05:30 | NUR ---
MUSIC WRITER NOTES BP RECHECKED 156/85 HR 94 O2 SAT 95%
[2019-05-08 06:24] LABS: BASOPHILS % (AUTO) 0.1 % (0.0-2.0); EOSINOPHILS % (AUTO) 0.5 % (0.0-6.0); HEMATOCRIT 28 % (39-51); HEMOGLOBIN 9.1 g/dL (13.5-17.5); LYMPHOCYTES # (AUTO) 1.4 /CMM (0.8-4.8); LYMPHOCYTES % (AUTO) 9.9 % (20.0-44.0); MEAN CORPUSCULAR HGB CONC 33 g/dl (31.0-36.0); MEAN CORPUSCULAR VOLUME 89 fL (80-96); MONOCYTES # (AUTO) 1.5 /CMM (0.1-1.30); MONOCYTES % (AUTO) 10.6 % (2.0-12.0); NEUTROPHILS # (AUTO) 11.1 /CMM (1.8-8.9); NEUTROPHILS % (AUTO) 78.9 % (43.0-81.0); PLATELET COUNT (AUTO) 128 /CMM (150-450); RED BLOOD CELL COUNT(AUTO) 3.15 MIL/uL (4.5-6.0)
[2019-05-08 06:44] LABS: CARBON DIOXIDE 23 mmol/L (21-32); CHLORIDE 105 mmol/L (98-107); CREATININE 3.7 mg/dL (0.6-1.3); GLUCOSE 78 mg/dL (74-106); POTASSIUM 4.4 mmol/L (3.5-5.1); SODIUM SERUM 141 mmol/L (136-145); UREA NITROGEN, BLOOD 62 mg/dL (7-18)
[2019-05-08 07:46] LABS: LYMPHOCYTES % (MANUAL) 7 % (16-48); MONOCYTES % (MANUAL) 7 % (0-11.0); NEUTROPHILS % (MANUAL) 84 (42-76)
[2019-05-08 07:47] LABS: METAMYELOCYTES % 2 % (0-0)
[2019-05-08 08:00] VITALS: BP 149/98
[2019-05-08] MEDS: ENSURE CLEAR 237 ML LIQUID (MIX BERRY) PO SCH ×3 (08:00→17:00)
[2019-05-08] MEDS: LABETALOL HCL IV 100MG VIAL IV SCH ×2 (09:00→21:12)
[2019-05-08] MEDS: NITROGLYCERIN 30 GM TUBE TP SCH ×2 (09:00→21:12)
[2019-05-08] MEDS: PANTOPRAZOLE 40 MG VIAL IV SCH ×2 (09:13→21:11)
[2019-05-08] MEDS: hydrALAZINE HCL 50 MG TABLET PO SCH ×3 (09:13→17:00)
[2019-05-08] MEDS: methylPREDNISolone SOD SUCC 125 MG/2ML VIAL IV SCH (09:13)
[2019-05-08] MEDS: ISOSORBIDE DINITRATE (20MG) 20 MG TABLET PO SCH ×2 (09:14→18:47)
[2019-05-08] MEDS: METOPROLOL SUCCINATE 50 MG TAB.SR.24H PO SCH (09:14)
[2019-05-08] MEDS: NIFEdipine XL (30MG) 30 MG TAB PO SCH (09:15)
[2019-05-08] MEDS: CLOTRIMAZOLE 1% 15 GM TUBE TP SCH ×2 (09:16→18:48)
[2019-05-08] MEDS: MUPIROCIN OINT 2% 22 GM TUBE SCH ×2 (09:18→21:13)
[2019-05-08 11:22] LABS: ABG BASE EXCESS -0.7 mmol/L; ABG OXYGEN SATURATION 91.3 % (92.0-98.5); ABG PCO2 32.1 mmHg (35.0-45.0); ABG PH 7.466 (7.350-7.450); ABG PO2 63.2 mmHg (75.0-100.0); AaDO2 329.3 mmHg; COHb 0.8 % (0.5-1.5); MetHb 0.5 % (0.0-1.5); O2Hb 90.1 % (94.0-97.0); SITE, ABG Left Radial; VENT MODE, BG SM 15L
[2019-05-08 12:00] VITALS: BP_SYST 112; BP_SYST 130; BP_DIAS 66; BP_DIAS 78
[2019-05-08 16:00] VITALS: BP 130/66
--- NOTE | 2019-05-08 19:21 | NUR ---
Extremity venous Ultra sound results relayed to Dr. Gilbert at this time, with no new order.
[2019-05-08 20:00] VITALS: BP 153/86
--- NOTE | 2019-05-08 20:50 | NUR ---
Patient STAT CBC results relayed to Dr. Gilbert, with no new order at this time. bleeding stopped, pressure dressing in place. Patient in no acute distress, breathing even and unlabored. VSS. Will continue to monitor. Kept clean and dry. Needs attendant. Restraints in place as ordered. Addendum: 05/09/19 at 0428 by DEDE RAMIREZ RN Disregard, wrong time
--- NOTE | 2019-05-08 22:30 | NUR ---
Patient pulled out his Right Femoral HD cath, Noted holding it in his hand. site noted with heavy bleeding. Quickly applied pressure. Cover with pressure dressing. Vital signs stable. BP 139/75, HR 83, T 97.2. R 18, O2 sat 98% with non-breather mask With O2 @ [address] Gilbert made aware with order for STAT CBC, and billateral soft wrist restraints. Order noted and carried out. will continue to monitor.
--- NOTE | 2019-05-08 22:50 | NUR ---
Patient STAT CBC results relayed to Dr. Gilbert, with no new order at this time. bleeding stopped, pressure dressing in place. Patient in no acute distress, breathing even and unlabored. VSS. Will continue to monitor. Kept clean and dry. Needs attendant. Restraints in place as ordered.
[2019-05-08 22:53] LABS: BASOPHILS % (AUTO) 0.4 % (0.0-2.0); EOSINOPHILS % (AUTO) 0.1 % (0.0-6.0); HEMATOCRIT 26 % (39-51); HEMOGLOBIN 8.4 g/dL (13.5-17.5); LYMPHOCYTES # (AUTO) 0.8 /CMM (0.8-4.8); LYMPHOCYTES % (AUTO) 7.7 % (20.0-44.0); MEAN CORPUSCULAR HGB CONC 33 g/dl (31.0-36.0); MEAN CORPUSCULAR VOLUME 89 fL (80-96); MONOCYTES # (AUTO) 0.8 /CMM (0.1-1.30); NEUTROPHILS # (AUTO) 9.2 /CMM (1.8-8.9); NEUTROPHILS % (AUTO) 84.8 % (43.0-81.0); PLATELET COUNT (AUTO) 106 /CMM (150-450); RED BLOOD CELL COUNT(AUTO) 2.88 MIL/uL (4.5-6.0); WHITE BLOOD COUNT (AUTO) 10.8 K/uL (4.3-11.0)
--- NOTE | 2019-05-08 23:00 | NUR ---
Family member Ashvin made aware .
[2019-05-09] VITALS: BP 142/76
[2019-05-09] MEDS: hydrALAZINE HCL IV 20 MG VIAL IV PRN (03:54)
[2019-05-09 04:00] VITALS: BP 167/98
--- NOTE | 2019-05-09 04:15 | NUR ---
hydralazine effective with BP 147/74, HR 74
[2019-05-09 07:13] LABS: BASOPHILS % (AUTO) 0.1 % (0.0-2.0); EOSINOPHILS % (AUTO) 17.4 % (0.0-6.0); HEMATOCRIT 24 % (39-51); LYMPHOCYTES # (AUTO) 1.1 /CMM (0.8-4.8); LYMPHOCYTES % (AUTO) 8.4 % (20.0-44.0); MEAN CORPUSCULAR HGB CONC 33 g/dl (31.0-36.0); MEAN CORPUSCULAR VOLUME 89 fL (80-96); MONOCYTES # (AUTO) 0.6 /CMM (0.1-1.30); MONOCYTES % (AUTO) 4.5 % (2.0-12.0); NEUTROPHILS # (AUTO) 9.5 /CMM (1.8-8.9); NEUTROPHILS % (AUTO) 69.6 % (43.0-81.0); PLATELET COUNT (AUTO) 121 /CMM (150-450); RED BLOOD CELL COUNT(AUTO) 2.75 MIL/uL (4.5-6.0); WHITE BLOOD COUNT (AUTO) 13.7 K/uL (4.3-11.0)
--- NOTE | 2019-05-09 07:25 | NUR ---
Remained in stable condition. In no acute distress, breathing even and unlabored. Saturation 98% on Non-rebreather mask with O2 @ 15LPM. Kept clean and dry. Needs attendant. Call light within reach. Will continue to monitor.
--- NOTE | 2019-05-09 07:25 | NUR ---
TELE/RN notes Received patient in bed, A/O x2 Maltese Speaking, Awake. in note acute distress. breathing even and unlabored. No SOB. Denies any pain. Sinus rhythm on the monitor. Henson cath draining with Red bloody color urine. Right femoral TLC in place. On O2 15LMP via Non-rebreather. Saturation 98%. Safety maintained, bed at the lowest locked position. Call light within reach. Will continue to monitor as per plan of care.
[2019-05-09 07:30] LABS: CALCIUM, SERUM 7.7 mg/dL (8.5-10.1); CARBON DIOXIDE 25 mmol/L (21-32); CHLORIDE 105 mmol/L (98-107); GLUCOSE 73 mg/dL (74-106); POTASSIUM 4.4 mmol/L (3.5-5.1); SODIUM SERUM 141 mmol/L (136-145); UREA NITROGEN, BLOOD 48 mg/dL (7-18)
[2019-05-09] MEDS: ENSURE CLEAR 237 ML LIQUID (MIX BERRY) PO SCH ×2 (07:56→17:43)
[2019-05-09 08:00] VITALS: BP_SYST 155; BP_SYST 165; BP_DIAS 80; BP_DIAS 83
[2019-05-09] MEDS: NIFEdipine XL (30MG) 30 MG TAB PO SCH ×2 (09:00→09:09)
[2019-05-09] MEDS: ISOSORBIDE DINITRATE (20MG) 20 MG TABLET PO SCH ×3 (09:00→17:43)
[2019-05-09] MEDS: hydrALAZINE HCL 50 MG TABLET PO SCH ×4 (09:00→17:43)
[2019-05-09] MEDS: methylPREDNISolone SOD SUCC 125 MG/2ML VIAL IV SCH (09:08)
[2019-05-09] MEDS: PANTOPRAZOLE 40 MG VIAL IV SCH ×2 (09:08→20:25)
[2019-05-09 09:10] LABS: EOSINOPHILS % (MANUAL) 2 % (0-4); LYMPHOCYTES % (MANUAL) 6 % (16-48); MONOCYTES % (MANUAL) 8 % (0-11.0); NEUTROPHILS % (MANUAL) 84 (42-76)
[2019-05-09] MEDS: LABETALOL HCL IV 100MG VIAL IV SCH ×2 (09:12→20:29)
[2019-05-09] MEDS: CLOTRIMAZOLE 1% 15 GM TUBE TP SCH ×2 (09:20→17:43)
[2019-05-09] MEDS: MUPIROCIN OINT 2% 22 GM TUBE SCH ×2 (09:21→20:41)
[2019-05-09] MEDS: NITROGLYCERIN 30 GM TUBE TP SCH ×2 (09:22→20:28)
[2019-05-09] MEDS ORDERED: FEE PK DOSING 1 MIN EA MC ONE (09:31)
[2019-05-09] MEDS ORDERED: VANCOMYCIN 500 MG in IV D5W 100 ML IV PRN (10:00)
[2019-05-09] MEDS ORDERED: VANCOMYCIN 1 GM in IV D5W 250 ML IV ONE (10:00)
[2019-05-09] MEDS: METOPROLOL SUCCINATE 50 MG TAB.SR.24H PO SCH (10:30)
[2019-05-09 12:00] VITALS: BP_SYST 133; BP_SYST 152; BP_DIAS 72; BP_DIAS 87
[2019-05-09] MEDS: CEFEPIME 1 GM in IV D5W 50 ML IV SCH (12:36)
[2019-05-09] MEDS ORDERED: CEFEPIME 2 GM in IV NS 0.9% 50 ML IV SCH (13:00)
[2019-05-09 16:00] VITALS: BP_SYST 142; BP_DIAS 92; BP_DIAS 95
--- NOTE | 2019-05-09 17:30 | NUR ---
TELE/RN NOTES RECEIVED A PHONE CALL FROM DR. ASHRAF REGARDING HIM PLACING A NEW HD CATH. ALL SUPPLIES NEEDED WAS PREPARED IN THE ROOM. AWAITING FOR TO DO THE PROCEDURE. PATIENT CONTINUES TO REMAIN IN STABLE CONDITION. WILL CONTINUE TO MONITOR CLOSELY.
--- NOTE | 2019-05-09 19:22 | NUR ---
TELE/RN CLOSING NOTES PATIENT CONTINUES TO REMAIN IN STABLE CONDITION THROUGHOUT THE SHIFT. PROVIDED COMFORT AND SAFETY. PATIENT ABLE TO TOLERATE MEALS AND MEDS WELL. NO ACUTE DISTRESS AT THIS TIME. RESPIRATION EVEN AND UNLABORED. STILL AWAITING FOR DR. ASHRAF FOR THE HD CATH PLACEMENT. ALL NEEDS ANTICIPATED. CALL LIGHT WITHIN REACHED. BED LOCKED AND IN LOWEST POSITION. SAFETY MAINTAINED. WILL CONTINUE TO MONITOR CLOSELY. ENDORSED TO PM NURSE FOR ELVIA.
[2019-05-09 20:00] VITALS: BP 122/88
--- NOTE | 2019-05-09 22:52 | NUR ---
RN NOTE ENDORSED TO MARQUIS ADAMS FOR CONTINUATION OF CARE.
--- NOTE | 2019-05-09 22:53 | NUR ---
RN NOTES RECEIVED REPORT FROM EVE CHO FOR CONTINUATION OF CARE. WILL CONT WITH PLAN OF CARE.
[2019-05-10] VITALS: BP 148/74
[2019-05-10 04:00] VITALS: BP 142/97
--- NOTE | 2019-05-10 07:02 | NUR ---
RN NOTE PATIENT IN BED ALERT AWAKE , BREATHING EVEN AND NON LABORED. NO SOB NOTED, DENIES ANY PAIN OR DISCOMFORT. CONT ON 4L NC NO SOB AT THIS TIME, ON TELE MONITOR SR HR 78, SCHNEIDER CATH TO GRAVITY WITH YELLOW RYAN WITH SOME BLOODY SEDIMENTS NOTES. SAFETY MEASURES IN PLACE, BED IN LOW AND LOCKED POSITION. CALL LIGHT WITHIN REACH. WILL ENDORSE TO MORNING SHIFT NURSE.
[2019-05-10 07:30] LABS: BASOPHILS % (AUTO) 0.2 % (0.0-2.0); EOSINOPHILS % (AUTO) 0.9 % (0.0-6.0); HEMATOCRIT 24 % (39-51); LYMPHOCYTES # (AUTO) 0.6 /CMM (0.8-4.8); LYMPHOCYTES % (AUTO) 5.9 % (20.0-44.0); MEAN CORPUSCULAR HGB CONC 34 g/dl (31.0-36.0); MEAN CORPUSCULAR VOLUME 90 fL (80-96); MONOCYTES # (AUTO) 0.8 /CMM (0.1-1.30); MONOCYTES % (AUTO) 7.6 % (2.0-12.0); NEUTROPHILS # (AUTO) 9.3 /CMM (1.8-8.9); NEUTROPHILS % (AUTO) 85.4 % (43.0-81.0); PLATELET COUNT (AUTO) 107 /CMM (150-450); RED BLOOD CELL COUNT(AUTO) 2.61 MIL/uL (4.5-6.0); WHITE BLOOD COUNT (AUTO) 10.9 K/uL (4.3-11.0)
--- NOTE | 2019-05-10 07:30 | NUR ---
rn opening note: Received patient in bed and asleep. Appears comfortable and relaxed on 15lpm of oxygen via non-rebreather mask tolerated at 95%. no SOB and no respiratory distress noted. patient on contact isolation, precautions strictly observed. on tele monitoring with SR noted. bilateral wrist restraints on for behavior identified. IV sites clean, dry, patent and intact. Henson catheter in place with minimal urine noted in dark tea color. no pain noted. call light in reach. Side rails up x3. Bed locked, low and at semi-guy's position. safety ensured and observed. will continue to monitor.
[2019-05-10 07:33] LABS: CALCIUM, SERUM 7.5 mg/dL (8.5-10.1); CARBON DIOXIDE 25 mmol/L (21-32); CHLORIDE 105 mmol/L (98-107); CREATININE 3.4 mg/dL (0.6-1.3); GLUCOSE 76 mg/dL (74-106); POTASSIUM 4.2 mmol/L (3.5-5.1); SODIUM SERUM 141 mmol/L (136-145); UREA NITROGEN, BLOOD 59 mg/dL (7-18)
[2019-05-10 08:00] VITALS: BP 143/88
[2019-05-10] MEDS: ENSURE CLEAR 237 ML LIQUID (MIX BERRY) PO SCH ×2 (08:45→18:13)
[2019-05-10] MEDS: PANTOPRAZOLE 40 MG VIAL IV SCH ×2 (08:46→20:49)
[2019-05-10] MEDS: methylPREDNISolone SOD SUCC 125 MG/2ML VIAL IV SCH (08:46)
[2019-05-10] MEDS: hydrALAZINE HCL 50 MG TABLET PO SCH ×3 (08:46→18:12)
[2019-05-10] MEDS: ISOSORBIDE DINITRATE (20MG) 20 MG TABLET PO SCH ×2 (08:46→18:12)
[2019-05-10] MEDS: MUPIROCIN OINT 2% 22 GM TUBE SCH ×2 (08:47→20:55)
[2019-05-10] MEDS: NIFEdipine XL (30MG) 30 MG TAB PO SCH (08:47)
[2019-05-10] MEDS: CLOTRIMAZOLE 1% 15 GM TUBE TP SCH ×2 (08:48→18:12)
[2019-05-10] MEDS: LABETALOL HCL IV 100MG VIAL IV SCH ×2 (08:49→20:52)
[2019-05-10] MEDS: NITROGLYCERIN 30 GM TUBE TP SCH ×2 (08:50→20:54)
--- NOTE | 2019-05-10 09:27 | NUR ---
rn note: patient was seen by Dr. Fernando and was asked regarding biopsy. patient refused procedure
[2019-05-10 10:17] LABS: LYMPHOCYTES % (MANUAL) 8 % (16-48); MONOCYTES % (MANUAL) 5 % (0-11.0); NEUTROPHILS % (MANUAL) 87 (42-76)
[2019-05-10] MEDS: METOPROLOL SUCCINATE 50 MG TAB.SR.24H PO SCH (11:04)
[2019-05-10 12:00] VITALS: BP 124/78
[2019-05-10] MEDS: CEFEPIME 1 GM in IV D5W 50 ML IV SCH (12:45)
[2019-05-10] MEDS: CLONIDINE HCL 0.3 MG/24H PTWK 1 EA PATCH TD SCH (13:30)
--- NOTE | 2019-05-10 14:00 | NUR ---
rn note: patient's scheduled 1300 and 1330 BP medication held due to patient having dialysis. will check vital signs upon completion of session
[2019-05-10 16:00] VITALS: BP_SYST 117; BP_SYST 141; BP_DIAS 79; BP_DIAS 85
--- NOTE | 2019-05-10 18:09 | NUR ---
rn note: relayed to Dr. bridget Fuller's concern about his current respiratory condition. Per Dr. Fuller, she also has contacted him regarding her concerns. currently on non rebreather mask @ 10lpm @100% tolerating well. Stat abg ordered and will relay results to Dr. gill when available.
[2019-05-10 18:26] LABS: ABG OXYGEN SATURATION 87.4 % (92.0-98.5); ABG PCO2 30.6 mmHg (35.0-45.0); ABG PH 7.521 (7.350-7.450); ABG PO2 51.9 mmHg (75.0-100.0); AaDO2 147.7 mmHg; COHb 0.6 % (0.5-1.5); MetHb 0.7 % (0.0-1.5); O2Hb 86.3 % (94.0-97.0); SITE, ABG Right Radial; VENT MODE, BG nasal cannula
--- NOTE | 2019-05-10 18:34 | NUR ---
placed into non-rebreather @ 15 lpm o2 flow due to 51 pao2 and 86% spo2 Addendum: 05/10/19 at 1834 by LUANNE FERNANDEZ RT Amended: Links added.
--- NOTE | 2019-05-10 19:00 | NUR ---
rn closing note: patient is on bed. Awake, alert and oriented x3. no complaints of pain noted. still on tele monitoring with SR noted. contact isolation precautions observed. HD was done with 3L out. patient tolerated procedure well. No complaints of pain noted. IV sites clean, dry, patent and intact. Henson catheter in place with minimal urine noted in dark tea color. Dr. Clarke's orders were noted and carried out. Call light in reach. Side rails up x3. Bed locked, low and at semi-guy's position. safety ensured and observed. Endorsed to oncoming shift for ELVIA.
[2019-05-10] MEDS: FUROSEMIDE 40 MG/4 ML VIAL IV SCH (19:35)
[2019-05-10 20:00] VITALS: BP 158/84
[2019-05-11] VITALS: BP 164/104
[2019-05-11] MEDS: FUROSEMIDE 40 MG/4 ML VIAL IV SCH (00:38)
[2019-05-11 04:00] VITALS: BP 146/91
[2019-05-11 06:48] LABS: BASOPHILS % (AUTO) 0.2 % (0.0-2.0); EOSINOPHILS % (AUTO) 0.4 % (0.0-6.0); HEMATOCRIT 25 % (39-51); HEMOGLOBIN 8.1 g/dL (13.5-17.5); LYMPHOCYTES # (AUTO) 0.6 /CMM (0.8-4.8); LYMPHOCYTES % (AUTO) 5.6 % (20.0-44.0); MEAN CORPUSCULAR HGB CONC 33 g/dl (31.0-36.0); MEAN CORPUSCULAR VOLUME 90 fL (80-96); MONOCYTES % (AUTO) 8.6 % (2.0-12.0); NEUTROPHILS # (AUTO) 9.5 /CMM (1.8-8.9); NEUTROPHILS % (AUTO) 85.2 % (43.0-81.0); PLATELET COUNT (AUTO) 103 /CMM (150-450); RED BLOOD CELL COUNT(AUTO) 2.71 MIL/uL (4.5-6.0); WHITE BLOOD COUNT (AUTO) 11.2 K/uL (4.3-11.0)
[2019-05-11 06:56] LABS: CALCIUM, SERUM 7.3 mg/dL (8.5-10.1); CARBON DIOXIDE 27 mmol/L (21-32); CHLORIDE 105 mmol/L (98-107); CREATININE 2.8 mg/dL (0.6-1.3); GLUCOSE 71 mg/dL (74-106); MAGNESIUM 1.9 mg/dL (1.8-2.4); POTASSIUM 4.3 mmol/L (3.5-5.1); SODIUM SERUM 142 mmol/L (136-145); UREA NITROGEN, BLOOD 46 mg/dL (7-18)
--- NOTE | 2019-05-11 07:00 | NUR ---
TRAVEL WRITER NOTES PATIENT A/O X3 COOPERATIVE AND COMPLIANT WITH TREATMENT PROVIDED. PATIENT IS ON SR ON EXTERNAL ENAMELER NO SIGNS OF SOB, NO ACUTE RESPIRATORY DISTRESS, NO PAIN. SCHNEIDER BLOOD HEMATURIA. PATIENT HAS R ARM BRUISES , GROIN REDNESS. PATIENT IS ON RESTRAINTS. . PATIENT HAS RICKEY MIDLINE INTACT AND PATIENT. NO SINGS OF INFILTRATION. L FEMORAL CATH AND R CHEST PORTOCATH. BED LOCKED AND LOWEST POSITION CALL LIGHT WITH IN REACH ALL SAFETY MEASURE IMPLEMENTED PER HOSPITAL POLICY 2 X SIDE RAILS UP
--- NOTE | 2019-05-11 07:36 | NUR ---
RN NOTE ALL NEEDS MET AND ATTENDED TO. ENDORSED TO MORNING RN FOR CONTINUATION OF CARE.
[2019-05-11 08:00] VITALS: BP 138/91
[2019-05-11 08:06] LABS: LYMPHOCYTES % (MANUAL) 5 % (16-48); MONOCYTES % (MANUAL) 5 % (0-11.0); NEUTROPHILS % (MANUAL) 90 (42-76)
[2019-05-11 08:27] LABS: ABG BASE EXCESS 1.2 mmol/L; ABG OXYGEN SATURATION 98.4 % (92.0-98.5); ABG PCO2 42.3 mmHg (35.0-45.0); ABG PH 7.407 (7.350-7.450); ABG PO2 194.7 mmHg (75.0-100.0); COHb 0.4 % (0.5-1.5); MetHb 0.7 % (0.0-1.5); O2Hb 97.3 % (94.0-97.0); SITE, ABG Right Radial; VENT MODE, BG NON REBREATHER
[2019-05-11] MEDS: LABETALOL HCL IV 100MG VIAL IV SCH ×2 (09:00→21:54)
[2019-05-11] MEDS: ENSURE CLEAR 237 ML LIQUID (MIX BERRY) PO SCH ×2 (10:47→17:26)
[2019-05-11] MEDS: METOPROLOL SUCCINATE 50 MG TAB.SR.24H PO SCH (10:48)
[2019-05-11] MEDS: PANTOPRAZOLE 40 MG VIAL IV SCH ×2 (10:48→21:52)
[2019-05-11] MEDS: NIFEdipine XL (30MG) 30 MG TAB PO SCH (10:49)
[2019-05-11] MEDS: methylPREDNISolone SOD SUCC 125 MG/2ML VIAL IV SCH (10:49)
[2019-05-11] MEDS: ISOSORBIDE DINITRATE (20MG) 20 MG TABLET PO SCH ×2 (10:50→17:31)
[2019-05-11] MEDS: NITROGLYCERIN 30 GM TUBE TP SCH ×2 (10:50→21:58)
[2019-05-11] MEDS: hydrALAZINE HCL 50 MG TABLET PO SCH ×4 (10:50→17:00)
[2019-05-11] MEDS: CLOTRIMAZOLE 1% 15 GM TUBE TP SCH ×2 (10:51→17:27)
[2019-05-11] MEDS: MUPIROCIN OINT 2% 22 GM TUBE SCH ×2 (10:52→21:54)
[2019-05-11] MEDS: CEFEPIME 1 GM in IV D5W 50 ML IV SCH (11:02)
[2019-05-11 12:00] VITALS: BP 144/92
[2019-05-11 16:00] VITALS: BP 101/65
[2019-05-11] MEDS: FLUCONAZOLE IN NS 100 MG in PREMIX 1 EA IV SCH ×2 (17:26)
[2019-05-11 20:00] VITALS: BP 122/75
[2019-05-12] VITALS: BP_SYST 129; BP_SYST 134; BP_DIAS 75; BP_DIAS 83
[2019-05-12 04:00] VITALS: BP 138/84
[2019-05-12 06:32] LABS: BASOPHILS % (AUTO) 0.2 % (0.0-2.0); EOSINOPHILS % (AUTO) 0.5 % (0.0-6.0); HEMATOCRIT 24 % (39-51); HEMOGLOBIN 7.6 g/dL (13.5-17.5); LYMPHOCYTES # (AUTO) 0.6 /CMM (0.8-4.8); LYMPHOCYTES % (AUTO) 5.3 % (20.0-44.0); MEAN CORPUSCULAR HGB CONC 32 g/dl (31.0-36.0); MEAN CORPUSCULAR VOLUME 92 fL (80-96); MONOCYTES # (AUTO) 0.9 /CMM (0.1-1.30); MONOCYTES % (AUTO) 7.3 % (2.0-12.0); NEUTROPHILS # (AUTO) 10.3 /CMM (1.8-8.9); NEUTROPHILS % (AUTO) 86.7 % (43.0-81.0); PLATELET COUNT (AUTO) 96 /CMM (150-450); RED BLOOD CELL COUNT(AUTO) 2.57 MIL/uL (4.5-6.0); WHITE BLOOD COUNT (AUTO) 11.9 K/uL (4.3-11.0)
[2019-05-12 06:56] LABS: CALCIUM, SERUM 7.4 mg/dL (8.5-10.1); CARBON DIOXIDE 28 mmol/L (21-32); CHLORIDE 105 mmol/L (98-107); CREATININE 2.2 mg/dL (0.6-1.3); GLUCOSE 74 mg/dL (74-106); POTASSIUM 3.9 mmol/L (3.5-5.1); SODIUM SERUM 141 mmol/L (136-145); UREA NITROGEN, BLOOD 36 mg/dL (7-18)
--- NOTE | 2019-05-12 07:15 | NUR ---
AUDIO VISUAL SPECIALIST OPENING NOTES RECEIVED REPORT FROM PM NURSE.PATIENT A/O X3 . ON TELE MONITOR SR HR 74.ON NON REBREATHER MASK.SATURATING 94%. NO PAIN NOTED. SCHNEIDER CATH WITH HEMATURIA. HAS RICKEY MIDLINE INTACT AND PATIENT. NO SINGS OF INFILTRATION. L FEMORAL CATH AND R CHEST PORTOCATH. BED LOCKED AND LOWEST POSITION CALL LIGHT WITH IN REACH .BED ALARM ON.SRX3.WILL CONTINUE TO MONITOR.
[2019-05-12 08:00] VITALS: BP 132/76
[2019-05-12] MEDS: ENSURE CLEAR 237 ML LIQUID (MIX BERRY) PO SCH ×2 (08:00→17:08)
[2019-05-12] MEDS: methylPREDNISolone SOD SUCC 125 MG/2ML VIAL IV SCH (08:38)
[2019-05-12] MEDS: PANTOPRAZOLE 40 MG VIAL IV SCH ×2 (08:38→21:40)
[2019-05-12] MEDS: LABETALOL HCL IV 100MG VIAL IV SCH ×2 (08:39→21:00)
[2019-05-12] MEDS: ISOSORBIDE DINITRATE (20MG) 20 MG TABLET PO SCH ×2 (08:39→17:08)
[2019-05-12] MEDS: MUPIROCIN OINT 2% 22 GM TUBE SCH ×2 (08:39→21:46)
[2019-05-12] MEDS: hydrALAZINE HCL 50 MG TABLET PO SCH ×3 (08:39→17:07)
[2019-05-12] MEDS: CLOTRIMAZOLE 1% 15 GM TUBE TP SCH ×2 (08:40→17:08)
--- NOTE | 2019-05-12 08:50 | NUR ---
CRECHE ATTENDANT NOTE LABETALOL IV NOT ADMINISTERED BECAUSE OF BP IS 132/76.TO BE GIVEN IF SBP>160
[2019-05-12] MEDS: NIFEdipine XL (30MG) 30 MG TAB PO SCH (09:00)
[2019-05-12 09:45] LABS: EOSINOPHILS % (MANUAL) 1 % (0-4); LYMPHOCYTES % (MANUAL) 6 % (16-48); MONOCYTES % (MANUAL) 9 % (0-11.0); NEUTROPHILS % (MANUAL) 84 (42-76)
[2019-05-12] MEDS: METOPROLOL SUCCINATE 50 MG TAB.SR.24H PO SCH (09:48)
[2019-05-12] MEDS: NITROGLYCERIN 30 GM TUBE TP SCH ×2 (09:52→21:40)
--- NOTE | 2019-05-12 11:26 | NUR ---
HORTICULTURAL THERAPIST NOTE PATIENT CARE TRANSFERRED TO ADAM RN FOR ELVIA.PATIENT IN STABLE CONDITION.HEMATURIA STILL PRESENT.PATIENT AXOX1.NO SOB NO DISTRESS NOTED.O2 WITH NON REBREATHER .
--- NOTE | 2019-05-12 11:30 | NUR ---
RECEIVED PATIENT FROM RN. PATIENT IS IN STABLE CONDITION, SCHNEIDER WITH HEMATURIA NOTED. NO RESPIRATORY DISTRESS NOTED, PATIENT IS ON 15L/MIN VIA NON-REBREATHER. NO ACUTE DISTRESS NOTED. BUE DVT. PATIENT IS ON BUE RESTRAINTS D/T PULLING ON MEDICAL EQUIPMENT AND TUBING, ORDER ACTIVE. RICKEY MIDLINE, FLUSHING WELL, SITE C/D/I, NO SIGNS OF COMPLICATIONS NOTED. L FEMORAL HD CATH AND R CHEST PORT-A-CATH, C/D/I, NO SIGNS OF COMPLICATIONS NOTED. WILL CONTINUE TO MONITOR PATIENT.
[2019-05-12 12:00] VITALS: BP 130/74
[2019-05-12] MEDS: CEFEPIME 1 GM in IV D5W 50 ML IV SCH (12:38)
[2019-05-12 16:00] VITALS: BP 123/71
--- NOTE | 2019-05-12 16:16 | NUR ---
PER HD NURSE, PATIENT WILL BE GETTING DIALYZED 05/13/2019
[2019-05-12] MEDS: FLUCONAZOLE IN NS 100 MG in PREMIX 1 EA IV SCH ×2 (16:29)
--- NOTE | 2019-05-12 19:00 | NUR ---
RN OPENING NOTES: PATIENT IN BED, ASLEEP, BUT EASY TO AROUSE. NO SOB. ON NONREBREATHER MASK AT 10 LITERS, TOLERATING WELL, O2 SAT 100%. NO C/O PAIN. PATIENT HAS RICKEY MIDLINE. C/D/I. TKO. PATIENT HAS (R) CW DIAZ CATH BUT NOT IN USE; (L) FEMORAL HD CATH. PER AM SHIFT NURSE, PATIENT WILL HAVE DIALYSIS IN AM. SAFETY PRECAUTIONS IMPLEMENTED. BED LOCKED, ALARM ON, LOW POSITION. CALL LIGHT PLACED WITHIN REACH. WILL CONT. TO MONITOR.
--- NOTE | 2019-05-12 19:53 | NUR ---
RN NOTE: PATIENT IS CURRENTLY RESTING IN HIS BED. PATIENT IS IN STABLE CONDITION. NO RESPIRATORY DISTRESS NOTED. NO ACUTE DISTRESS NOTED. SCHNEIDER DRAINING WELL. SAFETY MEASURES IMPLEMENTED, BED IN LOWEST POSITION, LOCKED, SIDE RAILS UP X2, CALL LIGHT WITHIN REACH. ENDORSED TO FOLLOWING SHIFT FOR CONTINUITY OF CARE.
[2019-05-12 20:00] VITALS: BP 120/71
--- NOTE | 2019-05-12 21:00 | NUR ---
GARMENT LINER NOTE MEDICATION WAS HELD PER MD PER MEDICATION DOSE INSTRUCTIONS. Addendum: 05/13/19 at 2311 by MOSES DURAN RN ERROR IN CHARTING CORRECT DATE WAS 05/13/19 AT 2100.
[2019-05-13] VITALS (8 sets, daily range): BP systolic 129–174; BP diastolic 70–91
[2019-05-13 06:34] LABS: BASOPHILS % (AUTO) 0.2 % (0.0-2.0); EOSINOPHILS % (AUTO) 0.1 % (0.0-6.0); HEMATOCRIT 24 % (39-51); HEMOGLOBIN 7.8 g/dL (13.5-17.5); LYMPHOCYTES # (AUTO) 0.5 /CMM (0.8-4.8); LYMPHOCYTES % (AUTO) 4.9 % (20.0-44.0); MEAN CORPUSCULAR HGB CONC 33 g/dl (31.0-36.0); MEAN CORPUSCULAR VOLUME 92 fL (80-96); MONOCYTES # (AUTO) 0.8 /CMM (0.1-1.30); MONOCYTES % (AUTO) 7.4 % (2.0-12.0); NEUTROPHILS # (AUTO) 9.1 /CMM (1.8-8.9); NEUTROPHILS % (AUTO) 87.4 % (43.0-81.0); PLATELET COUNT (AUTO) 102 /CMM (150-450); RED BLOOD CELL COUNT(AUTO) 2.61 MIL/uL (4.5-6.0); WHITE BLOOD COUNT (AUTO) 10.4 K/uL (4.3-11.0)
[2019-05-13 06:36] LABS: CALCIUM, SERUM 7.6 mg/dL (8.5-10.1); CARBON DIOXIDE 27 mmol/L (21-32); CHLORIDE 103 mmol/L (98-107); CREATININE 2.9 mg/dL (0.6-1.3); GLUCOSE 86 mg/dL (74-106); MAGNESIUM 1.9 mg/dL (1.8-2.4); PHOSPHORUS 6.5 mg/dL (2.5-4.9); POTASSIUM 4.2 mmol/L (3.5-5.1); SODIUM SERUM 140 mmol/L (136-145); UREA NITROGEN, BLOOD 50 mg/dL (7-18)
--- NOTE | 2019-05-13 07:00 | NUR ---
RN NOTE: PATIENT AWAKE AND VERBALLY RESPONSIVE. NO SOB. NO C/O PAIN DURING SHIFT. ENDORSED TO AM SHIFT NURSE FOR CONTINUITY OF CARE. Addendum: 05/13/19 at 0733 by NABEEL AMADOR RN PATIENT WILL HAVE DIALYSIS TODAY. CT OF ABDOMEN AND PELVIS NOT DONE YESTERDAY. ENDORSED TO AM SHIFT NURSE FOR CONTINUITY OF CARE.
[2019-05-13] MEDS: ISOSORBIDE DINITRATE (20MG) 20 MG TABLET PO SCH ×2 (09:00→17:00)
[2019-05-13] MEDS: NIFEdipine XL (30MG) 30 MG TAB PO SCH (09:00)
[2019-05-13] MEDS: LABETALOL HCL IV 100MG VIAL IV SCH ×2 (09:00→21:00)
[2019-05-13] MEDS: NITROGLYCERIN 30 GM TUBE TP SCH ×2 (09:00→22:23)
[2019-05-13] MEDS: hydrALAZINE HCL 50 MG TABLET PO SCH ×3 (09:00→17:00)
--- NOTE | 2019-05-13 10:00 | NUR ---
rn note BP meds held due to HD later today. bp under control.
[2019-05-13] MEDS: PANTOPRAZOLE 40 MG VIAL IV SCH ×2 (10:19→22:12)
[2019-05-13] MEDS: methylPREDNISolone SOD SUCC 125 MG/2ML VIAL IV SCH (10:19)
[2019-05-13] MEDS: ENSURE CLEAR 237 ML LIQUID (MIX BERRY) PO SCH ×2 (10:23→17:00)
[2019-05-13] MEDS: CLOTRIMAZOLE 1% 15 GM TUBE TP SCH ×2 (10:24→16:11)
[2019-05-13] MEDS: MUPIROCIN OINT 2% 22 GM TUBE SCH ×2 (10:24→22:19)
[2019-05-13] MEDS: METOPROLOL SUCCINATE 50 MG TAB.SR.24H PO SCH (10:30)
[2019-05-13] MEDS ORDERED: IV NS 0.9% 250 ML IV ONE (11:07)
[2019-05-13] MEDS ORDERED: IOHEXOL-300 100 ML VIAL IV ONE (11:07)
[2019-05-13] MEDS ORDERED: CT SWABBABLE VALVE TRANS SET 1 EA INFUS.SET MC ONE (11:07)
[2019-05-13 11:58] LABS: ABG BASE EXCESS -1.4 mmol/L; ABG PCO2 42.9 mmHg (35.0-45.0); ABG PH 7.364 (7.350-7.450); ABG PO2 138.1 mmHg (75.0-100.0); COHb 0.3 % (0.5-1.5); MetHb 0.7 % (0.0-1.5); SITE, ABG Right Radial
--- NOTE | 2019-05-13 12:00 | NUR ---
RT NOTE ABG RESULTS RELAYED TO NABEEL CHO
[2019-05-13] MEDS: FLUCONAZOLE IN NS 100 MG in PREMIX 1 EA IV SCH ×2 (16:11)
--- NOTE | 2019-05-13 19:00 | NUR ---
RN NOTE CT ABDOMEN DONE, PT COMPLIANT WITH SAFETY MEASURES AND AGREED TO NOT PULL ANY LINES, BEEN CALM, DENIED PAIN, PO INTAKE VERY POOR ONLY ASKED FOR JELLO AND WATER, HAD ONE BM, BLOOD PRESSURE MEDS HELD DUE TO HD, DIALYSIS IS PENDING. NEEDS MET, SAFETY MEASURES IN PLACE.
--- NOTE | 2019-05-13 19:55 | NUR ---
ASSOCIATE PROPERTY MANAGER NOTES RECEIVED PATIENT ALERT ORIENTED X3. BREATHING NORMAL NO SOB NOTED. RESPIRATION EVEN NON LABORED. PATIENT DENIES ANY PAIN OR DISCOMFORT. SKIN WARM AND DRY TO TOUCH. ON TELE MONITOR SR HR IN 70'S-80'S. RICKEY MIDLINE INTACT. NO S/S OF INFILTRATION NOTED. RT CHEST DIAZ CATH, LT FEMORAL HD. F/C INTACT URINE NOTED RYAN COLOR, DARNING WELL. DIALYSIS IN PROGRESS. ON OXYGEN 5L/MIN VIA NC WITH HUMIDIFIER SATURATING 99%. SAFETY MEASURES IN PLACE; CALL LIGHT WITHIN REACH, SIDE RAILS UP X2, BED LOCKED AND IN LOW POSITION. WILL CONT TO MONITOR
--- NOTE | 2019-05-13 21:00 | NUR ---
MORTGAGE ORIGINATOR NOTE MEDICATION WAS HELD PER MD PER MEDICATION DOSE INSTRUCTIONS.
[2019-05-14] VITALS (7 sets, daily range): BP systolic 102–159; BP diastolic 58–90
[2019-05-14 06:21] LABS: EOSINOPHILS % (AUTO) 0.1 % (0.0-6.0); HEMATOCRIT 23 % (39-51); HEMOGLOBIN 7.7 g/dL (13.5-17.5); LYMPHOCYTES # (AUTO) 0.4 /CMM (0.8-4.8); MEAN CORPUSCULAR HGB CONC 33 g/dl (31.0-36.0); MEAN CORPUSCULAR VOLUME 92 fL (80-96); MONOCYTES # (AUTO) 0.9 /CMM (0.1-1.30); MONOCYTES % (AUTO) 10.7 % (2.0-12.0); NEUTROPHILS # (AUTO) 6.8 /CMM (1.8-8.9); NEUTROPHILS % (AUTO) 84.2 % (43.0-81.0); PLATELET COUNT (AUTO) 92 /CMM (150-450); RED BLOOD CELL COUNT(AUTO) 2.55 MIL/uL (4.5-6.0); WHITE BLOOD COUNT (AUTO) 8.1 K/uL (4.3-11.0)
--- NOTE | 2019-05-14 06:48 | NUR ---
SCHOOL PSYCHOLOGIST ASSISTANT CLOSING NOTES PATIENT IS RESTING COMFORTABLY DENIES ANY PAIN OR DISCOMFORT. BREATHING NORMAL NO SOB NOTED. ALL DUE MEDICATIONS WERE GIVEN TOLERATED WELL. HEMODIALYSIS WAS DONE 2L FLUID WAS REMOVED PER DIALYSIS NURSE. IV SITE INTACT PATIENT FLUSHING WELL. NO S/S OF DISTRESS NOTED. KEPT PT CLEAN, DRY, AND COMFORTABLE. SAFETY MEASURES IN PLACE, BED IN LOW AND LOCKED POSITION. WILL ENDORSE TO DAY SHIFT NURSE.
[2019-05-14 07:23] LABS: CALCIUM, SERUM 7.6 mg/dL (8.5-10.1); CARBON DIOXIDE 28 mmol/L (21-32); CHLORIDE 102 mmol/L (98-107); GLUCOSE 89 mg/dL (74-106); MAGNESIUM 1.7 mg/dL (1.8-2.4); PHOSPHORUS 5.1 mg/dL (2.5-4.9); POTASSIUM 3.8 mmol/L (3.5-5.1); SODIUM SERUM 139 mmol/L (136-145); UREA NITROGEN, BLOOD 36 mg/dL (7-18)
--- NOTE | 2019-05-14 07:31 | NUR ---
RN OPENING NOTES RECEIVED PATIENT IN BED, AWAKE, VERBALLY RESPONSIVE AND ABLE TO MAKE NEEDS KNOWN. DENIES ANY PAIN OR DISCOMFORT AT THE MOMENT. A/O X3 . ON TELE MONITOR SR HR 77, ON OXYGEN VIA NASAL CANNULA WITH HUMIDIFIER SATURATING 96%. SCHNEIDER CATHETER DRAINING CLOUDY COLOR RYAN URINE DRAINING VIA GRAVITY WITH 100ML ON THE BAG. IV ACCESS RICKEY MIDLINE INTACT, PATENT AND FLUSHED WELL. NO SINGS OF INFILTRATION. L FEMORAL CATH AND R CHEST PORTOCATH, NO SIGNS OF BLEEDING . SAFETY MEASURES IN PLACED , BED LOCKED AND IN LOWEST POSITION, CALL LIGHT WITH IN REACH .BED ALARM ON.WILL CONTINUE TO MONITOR.
[2019-05-14] MEDS: ENSURE CLEAR 237 ML LIQUID (MIX BERRY) PO SCH (07:42)
[2019-05-14] MEDS: hydrALAZINE HCL 50 MG TABLET PO SCH ×3 (09:00→16:27)
[2019-05-14] MEDS: LABETALOL HCL IV 100MG VIAL IV SCH ×2 (09:00→21:00)
[2019-05-14] MEDS: ISOSORBIDE DINITRATE (20MG) 20 MG TABLET PO SCH ×2 (09:00→16:27)
[2019-05-14] MEDS: NIFEdipine XL (30MG) 30 MG TAB PO SCH (09:00)
--- NOTE | 2019-05-14 09:10 | NUR ---
RN NOTES CALLED MRI DEPARTMENT TO F/U FOR THE MRI SCHEDULE OF THE PATIENT. NICHOLE FRAUSTO WILL CALL ME ONCE THEY ARE READY FOR HIM.
[2019-05-14] MEDS ORDERED: Magnesium 1GM/D5W 100ML PREMIX 100 ML IV SCH (09:29)
[2019-05-14] MEDS: METOPROLOL SUCCINATE 50 MG TAB.SR.24H PO SCH (09:44)
[2019-05-14] MEDS: methylPREDNISolone SOD SUCC 125 MG/2ML VIAL IV SCH (09:47)
[2019-05-14] MEDS: PANTOPRAZOLE 40 MG VIAL IV SCH ×2 (09:48→22:22)
[2019-05-14] MEDS: MUPIROCIN OINT 2% 22 GM TUBE SCH ×2 (10:03→22:25)
[2019-05-14] MEDS: CLOTRIMAZOLE 1% 15 GM TUBE TP SCH ×2 (10:03→16:49)
[2019-05-14] MEDS: NITROGLYCERIN 30 GM TUBE TP SCH ×2 (10:04→22:25)
--- NOTE | 2019-05-14 14:11 | NUR ---
RN NOTES PER LISBET BLACKENER, THEIR MACHINE IS NOT CURRENTLY NOT WORKING RIGHT NOW AND CAN'T DO THE PROCEDURE TODAY. Addendum: 05/14/19 at 1922 by TRACY BUSTOS RN MRI DEPARTMENT HASN'T CALL ME BACK YET IF THE MACHINE IS WORKING NOW. PLEASE F/U IN AM, AND PER BUGGY OPERATOR AMY, PATIENT NEEDS TO BE NPO FOR 4HRS PRIOR MRI.
--- NOTE | 2019-05-14 15:12 | NUR ---
RN NOTES DR WOODS MADE AWARE THAT THE MRI OF ABDOMEN WASN'T DONE.
[2019-05-14] MEDS ORDERED: NEPRO VAN 237 ML CAN PO PRN (15:30)
[2019-05-14] MEDS: FLUCONAZOLE IN NS 100 MG in PREMIX 1 EA IV SCH ×2 (16:21)
--- NOTE | 2019-05-14 19:15 | NUR ---
RN CLOSING NOTES PATIENT IN BED, VERBALLY RESPONSIVE AND ABLE TO MAKE NEEDS KNOWN. IN NO APPARENT DISTRESS NOTED. DENIES ANY PAIN OR DISCOMFORT AT THE MOMENT. ON OXYGEN VIA NASAL CANNULA @ 5L WITH HUMIDIFIER,SATURATING WELL. NO SOB NOTED. SCHNEIDER CATH DRAINING VIA GRAVITY OF COLOR BROWN URINE . SAFETY MEASURES IN PLACED, CALL LIGHT WITHIN REACH. ENDORSED TO PM RN FOR ELVIA.
--- NOTE | 2019-05-14 20:49 | NUR ---
RN NOTE ENDORSED PT TO MARQUIS KRAMER FOR CONTINUATION OF CARE.
--- NOTE | 2019-05-14 21:26 | NUR ---
HAN/RN ASSUMED CARE FOR CONTINUITY OF CARE, PATIENT IS AWAKE, ALERT, ORIENTED, COMFORTABLE, WATCHING TV, NO C/O PAIN, NO DISTRESS NOTED, CALL LIGHT IN REACH. WILL MONITOR.
[2019-05-15] VITALS (15 sets, daily range): BP systolic 79–132; BP diastolic 44–88
--- NOTE | 2019-05-15 06:26 | NUR ---
HAN/RN PATIENT IS AWAKE AT THIS TIME, APPEAR COMFORTABLE, NO DISTRESS NOTED, CALL LIGHT IN REACH. WILL CONTINUE TO MONITOR.
[2019-05-15 06:42] LABS: BASOPHILS % (AUTO) 0.2 % (0.0-2.0); HEMATOCRIT 23 % (39-51); HEMOGLOBIN 7.5 g/dL (13.5-17.5); LYMPHOCYTES # (AUTO) 0.5 /CMM (0.8-4.8); LYMPHOCYTES % (AUTO) 6.3 % (20.0-44.0); MEAN CORPUSCULAR HGB CONC 33 g/dl (31.0-36.0); MEAN CORPUSCULAR VOLUME 93 fL (80-96); MONOCYTES # (AUTO) 0.9 /CMM (0.1-1.30); MONOCYTES % (AUTO) 11.1 % (2.0-12.0); NEUTROPHILS # (AUTO) 6.5 /CMM (1.8-8.9); NEUTROPHILS % (AUTO) 80.4 % (43.0-81.0); PLATELET COUNT (AUTO) 88 /CMM (150-450); RED BLOOD CELL COUNT(AUTO) 2.45 MIL/uL (4.5-6.0)
[2019-05-15 07:12] LABS: CALCIUM, SERUM 7.2 mg/dL (8.5-10.1); CARBON DIOXIDE 30 mmol/L (21-32); CHLORIDE 104 mmol/L (98-107); CREATININE 1.8 mg/dL (0.6-1.3); GLUCOSE 90 mg/dL (74-106); MAGNESIUM 1.9 mg/dL (1.8-2.4); PHOSPHORUS 3.7 mg/dL (2.5-4.9); POTASSIUM 3.4 mmol/L (3.5-5.1); SODIUM SERUM 140 mmol/L (136-145); UREA NITROGEN, BLOOD 33 mg/dL (7-18)
[2019-05-15 08:12] LABS: BAND % (MANUAL) 1 % (0.0-5.0); EOSINOPHILS % (MANUAL) 1 % (0-4); LYMPHOCYTES % (MANUAL) 4 % (16-48); MONOCYTES % (MANUAL) 11 % (0-11.0); NEUTROPHILS % (MANUAL) 83 (42-76)
--- NOTE | 2019-05-15 08:38 | NUR ---
BRAND STRATEGIST NOTES PT IN BED A/OX3. ABLE TO MAKE NEEDS KNOWN. DR. RICHMOND AT THE BEDSIDE. PT ON O2 PRESCRIBED. TOLERATING WELL AT O2 SAT 100%. MIDLINE IV IS INTACT AND FLUSHES WELL. ON TELE MONITOR SR HR 72. R CHEST PORTOCATH INTACT NO BLEEDING NOTED. SCHNEIDER CATH DRAINING WELL VIA GRAVITY, YELLOW/RYAN URINE NOTED/. PT IS NOT C/O ANY PAIN AT THIS TIME. BED IN LOWEST POSITION AND LOCKED. CALL LIGHT WITHIN REACH. ALL SAFETY MEASURES OBSERVED. WILL CONT TO MONITOR.
[2019-05-15] MEDS: hydrALAZINE HCL 50 MG TABLET PO SCH ×3 (09:29→17:00)
[2019-05-15] MEDS: ISOSORBIDE DINITRATE (20MG) 20 MG TABLET PO SCH ×2 (09:29→17:00)
[2019-05-15] MEDS: NIFEdipine XL (30MG) 30 MG TAB PO SCH (09:30)
[2019-05-15] MEDS: PANTOPRAZOLE 40 MG VIAL IV SCH ×2 (09:31→21:18)
[2019-05-15] MEDS: NITROGLYCERIN 30 GM TUBE TP SCH ×2 (09:37→21:19)
[2019-05-15] MEDS: FLUCONAZOLE (100 MG) 100 MG TABLET PO SCH (09:40)
[2019-05-15] MEDS: MUPIROCIN OINT 2% 22 GM TUBE SCH ×2 (09:59→21:18)
[2019-05-15] MEDS: CLOTRIMAZOLE 1% 15 GM TUBE TP SCH ×2 (09:59→16:14)
[2019-05-15] MEDS ORDERED: POTASSIUM CHLORIDE 20 MEQ POWDER PACKET GT ONE (10:00)
[2019-05-15] MEDS: METOPROLOL SUCCINATE 50 MG TAB.SR.24H PO SCH (10:30)
[2019-05-15] MEDS: methylPREDNISolone SOD SUCC 125 MG/2ML VIAL IV SCH (10:48)
--- NOTE | 2019-05-15 11:44 | NUR ---
MS RN NOTE CALLED TO DR WOODS WITH ORDER TRANSFUSE CRYO 2 BAG AND 1 UNIT PRBC CHUCK ,AWARE THAT HF 7.5 AND PLATELETS 88 FIBRINOGEN 145
--- NOTE | 2019-05-15 11:59 | NUR ---
MS RN NOTE ON HD AT THIS TIME
--- NOTE | 2019-05-15 12:44 | NUR ---
ms rn note hold bp Meds, patient on hd
--- NOTE | 2019-05-15 12:46 | NUR ---
ms rn note called to mri spoke with enoch stated that may latter on still awating to fix some part of mri machine
--- NOTE | 2019-05-15 13:02 | NUR ---
ms rn note called to blood bank no blood cryo not ready will f\u
--- NOTE | 2019-05-15 14:04 | NUR ---
ms rn note hd completed 2l of fluids is out bp 93/45
--- NOTE | 2019-05-15 15:12 | NUR ---
MS RN NOTE CALLED TO BLOOD BANK, NO BLOOD READY YET
--- NOTE | 2019-05-15 15:20 | NUR ---
COMMUNITY DEVELOPMENT AIDE NOTES PICC LINE DRESSING CHANGED, WITH GOOD BLOOD RETURN AND FLUSHES WELL. PT TOLERATED WELL. WILL CONT TO MONITOR
--- NOTE | 2019-05-15 16:17 | NUR ---
ms rn note blood transfusion started ,no adverse reaction noted, will monitor
--- NOTE | 2019-05-15 18:30 | NUR ---
MS RN NOTES PT IN BED. WITH BLOOD TRANSFUSING PER PROTOCOL. TOLERATING WELL. NO VISIBLE SIGNS OF DISTRESS, SOB NOTED. ALL NEEDS ATTENDED. BED LOCKED IN LOWEST POSITION. SAFETY MEASURES OBSERVED PER POLICY.
--- NOTE | 2019-05-15 18:54 | NUR ---
MS RN NOTE 1UNIT PRBC COMPLETED, NO ADVERSE REACTION NOTED, VS STABLE
--- NOTE | 2019-05-15 19:20 | NUR ---
MS/RN notes Patient received, awake A/O x3. In no acute distress, breathing even and unlabored. No SOB. On O2 5LPM via NC, saturation 98%. S/P 1 unit PRBC. Denies any pain. IV sites with no S/S of infection/ Infiltration. Henson cath in place, patent, draining with dark tea color urine. Safety maintained, bed at the lowest locked position. Isolation precautions maintained. Call light within reach. Will Continue to monitor as per plan of care.
--- NOTE | 2019-05-15 20:19 | NUR ---
Cryoprecipitate unit number [id number] initiated at this time, verified with Charge nurse MARQUIS Clarke and Ivonne CHO. Unable to scan the unit number
--- NOTE | 2019-05-15 20:59 | NUR ---
Cryoprecipitate unit number [id number] initiated at this time, verified with Charge nurse MARQUIS Clarke. Unable to scan the product number
[2019-05-16] VITALS (7 sets, daily range): BP systolic 105–136; BP diastolic 59–76
--- NOTE | 2019-05-16 07:20 | NUR ---
RN OPENING NOTE: RECEIVED PATIENT IN BED THIS MORNING. PATIENT IS ALERT AND ORIENTED X3, RESPONDS APPROPRIATELY. PATIENT IS ON O2 5L/MIN VIA NC, NO SIGNS OF RESPIRATORY DISTRESS NOTED, SATING WELL. PATIENT HAS MIDLINE AT RICKEY, C/D/I, FLUSHING WELL, NO SIGNS OF COMPLICATIONS NOTED. PATIENT ON TELE, SR 86. RCW PERM-A-CATH, C/D/I, NO SIGNS OF COMPLICATIONS NOTED. SCHNEIDER, DRAINING WELL, NO BLOOD CLOTS NOTED, YELLOW/RYAN IN COLOR. NO ACUTE DISTRESS NOTED. SAFETY MEASURES IMPLEMENTED, BED IN LOWEST POSITION, LOCKED, SIDE RAILS UP X2, CALL LIGHT WITHIN REACH. WILL CONTINUE TO MONITOR PATIENT FOR CHANGES. Addendum: 05/16/19 at 1100 by BARRERA HOUSTON RN CORRECTION, PATIENT IS MED SURG AND NOT ON TELE MONITOR, INCORRECT INFORMATION NOTED ABOVE. DISREGARD INFORMATION ABOUT TELE.
--- NOTE | 2019-05-16 07:25 | NUR ---
REMAINED IN STABLE CONDITION. NO SIGNIFICANT CHANGE IN CONDITION OVERNIGHT. IN NO ACUTE DISTRESS. ENDORSE TO AM SHIFT NURSE FOR ELVIA
[2019-05-16] MEDS: ISOSORBIDE DINITRATE (20MG) 20 MG TABLET PO SCH ×2 (09:00→17:02)
[2019-05-16] MEDS: hydrALAZINE HCL 50 MG TABLET PO SCH ×3 (09:00→17:02)
[2019-05-16] MEDS: NIFEdipine XL (30MG) 30 MG TAB PO SCH (09:00)
[2019-05-16] MEDS: PANTOPRAZOLE 40 MG VIAL IV SCH ×2 (09:04→22:40)
[2019-05-16] MEDS: methylPREDNISolone SOD SUCC 125 MG/2ML VIAL IV SCH (09:04)
[2019-05-16] MEDS: FLUCONAZOLE (100 MG) 100 MG TABLET PO SCH (09:07)
[2019-05-16] MEDS: CLOTRIMAZOLE 1% 15 GM TUBE TP SCH ×2 (09:08→17:02)
[2019-05-16] MEDS: MUPIROCIN OINT 2% 22 GM TUBE SCH ×2 (09:08→22:41)
[2019-05-16] MEDS: METOPROLOL SUCCINATE 50 MG TAB.SR.24H PO SCH (10:12)
--- NOTE | 2019-05-16 10:12 | NUR ---
PATIENT GETTING DIALYSIS. BP MEDS HELD.
--- NOTE | 2019-05-16 10:44 | NUR ---
DC ISOLATION Addendum: 05/16/19 at 1045 by BARRERA HOUSTON RN PER ID
--- NOTE | 2019-05-16 18:00 | NUR ---
OK FOR FAMILY TO DROP OFF PUREED FOOD FOR PATIENT. INFORM THEM TO CONTACT NURSES STATION AND FOR A NURSE TO COME OUT BY SECURITY TO ACCOUNT PROCESSOR FOOD.
--- NOTE | 2019-05-16 18:57 | NUR ---
RN CLOSING NOTE: PATIENT REMAINS IN BED. NO SIGNS OF RESPIRATORY DISTRESS NOTED, SATING WELL. SCHNEIDER, DRAINING WELL, NO BLOOD CLOTS NOTED, YELLOW/RYAN IN COLOR. NO ACUTE DISTRESS NOTED. SAFETY MEASURES IMPLEMENTED, BED IN LOWEST POSITION, LOCKED, SIDE RAILS UP X2, CALL LIGHT WITHIN REACH. WILL ENDORSE TO ONCOMING RN FOR CONTINUITY OF CARE.
--- NOTE | 2019-05-16 20:20 | NUR ---
MS RN OPENING NOTES: PATIENT RECEIVED AT 1900 IN BED A/O X4. NO SOB NOTED. NO COMPLAIN OF PAIN. WITH O2 AT 5L/MIN, NASAL CANNULA. HOB ELEVATED AT 35DEGREES. CALL LIGHT WITHIN REACH. BED IN LOWEST AND LOCKED POSITION. BED ALARM ON. WITH AIR MATTRESS ON. WITH SCD's ON BOTH LEGS.
[2019-05-16 20:32] LABS: BASOPHILS % (AUTO) 0.1 % (0.0-2.0); HEMOGLOBIN 8.3 g/dL (13.5-17.5); MONOCYTES # (AUTO) 0.6 /CMM (0.1-1.30)
[2019-05-16 20:43] LABS: CARBON DIOXIDE 28 mmol/L (21-32); CHLORIDE 100 mmol/L (98-107); GLUCOSE 148 mg/dL (74-106); POTASSIUM 3.4 mmol/L (3.5-5.1); SODIUM SERUM 137 mmol/L (136-145); UREA NITROGEN, BLOOD 34 mg/dL (7-18)
[2019-05-16 20:46] LABS: HEMATOCRIT 25 % (39-51); LYMPHOCYTES # (AUTO) 0.2 /CMM (0.8-4.8); LYMPHOCYTES % (AUTO) 3.4 % (20.0-44.0); MEAN CORPUSCULAR HGB CONC 33 g/dl (31.0-36.0); MEAN CORPUSCULAR VOLUME 91 fL (80-96); MONOCYTES % (AUTO) 8.9 % (2.0-12.0); NEUTROPHILS # (AUTO) 5.9 /CMM (1.8-8.9); NEUTROPHILS % (AUTO) 87.6 % (43.0-81.0); PLATELET COUNT (AUTO) 65 /CMM (150-450); RED BLOOD CELL COUNT(AUTO) 2.77 MIL/uL (4.5-6.0); WHITE BLOOD COUNT (AUTO) 6.7 K/uL (4.3-11.0)
[2019-05-16 20:57] LABS: ALANINE AMINOTRANSFERASE 14 U/L (12-78); ALKALINE PHOSPHATASE 75 U/L (46-116); ASPARTATE AMINOTRANSFERASE 31 U/L (15-37); BILIRUBIN,TOTAL 0.6 mg/dL (0.2-1.0); CALCIUM, SERUM 7.4 mg/dL (8.5-10.1); TOTAL PROTEIN, SERUM 5.2 g/dL (6.4-8.2)
[2019-05-16 21:07] LABS: LYMPHOCYTES % (MANUAL) 3 % (16-48); MONOCYTES % (MANUAL) 4 % (0-11.0); NEUTROPHILS % (MANUAL) 93 (42-76)
[2019-05-17] VITALS (7 sets, daily range): BP systolic 111–137; BP diastolic 59–76
--- NOTE | 2019-05-17 04:52 | NUR ---
MS RN CLOSING NOTES: PATIENT IS AWAKE. BED BATH GIVEN. RESTED THROUGHOUT THE NIGHT. A/O X4. NO SOB NOTED. NO COMPLAIN OF PAIN. WITH LEFT FLANK BRUISE NOTED. CALL LIGHT WITHIN REACH. BED IN LOWEST AND LOCKED POSITION. BED ALARM ON. WITH RASHES ON THE GROIN FOLDS, PERINEAL AREA, AND INNER BUTTOCKS, CLEANSED WITH SOAP AND WATER, RINSED, AND DRIED WELL, AND APPLIED LOTRIMIN CREAM, AND FOLLOWED WITH Z-GUARD CREAM. SCD's ON BOTH LEGS ON AT ALL TIMES. WITH RIGHT CHEST WALL PORT-NOT ACCESSED. LEFT FEMORAL HD CATHETER INTACT. WITH SCHNEIDER CATHETER INTACT, SECURED WITH STAT LOCK, ONLY 50CC URINE OUTPUT, NO BLOD CLOTS NOTED.
[2019-05-17 07:13] LABS: BASOPHILS % (AUTO) 0.1 % (0.0-2.0); EOSINOPHILS % (AUTO) 0.1 % (0.0-6.0); HEMATOCRIT 25 % (39-51); HEMOGLOBIN 8.3 g/dL (13.5-17.5); LYMPHOCYTES # (AUTO) 0.5 /CMM (0.8-4.8); LYMPHOCYTES % (AUTO) 7.5 % (20.0-44.0); MEAN CORPUSCULAR HGB CONC 33 g/dl (31.0-36.0); MEAN CORPUSCULAR VOLUME 91 fL (80-96); MONOCYTES % (AUTO) 13.5 % (2.0-12.0); NEUTROPHILS # (AUTO) 5.6 /CMM (1.8-8.9); NEUTROPHILS % (AUTO) 78.8 % (43.0-81.0); PLATELET COUNT (AUTO) 66 /CMM (150-450); RED BLOOD CELL COUNT(AUTO) 2.72 MIL/uL (4.5-6.0); WHITE BLOOD COUNT (AUTO) 7.1 K/uL (4.3-11.0)
[2019-05-17 07:19] LABS: ALANINE AMINOTRANSFERASE 14 U/L (12-78); ALKALINE PHOSPHATASE 74 U/L (46-116); ASPARTATE AMINOTRANSFERASE 30 U/L (15-37); BILIRUBIN,TOTAL 0.8 mg/dL (0.2-1.0); CALCIUM, SERUM 7.7 mg/dL (8.5-10.1); CARBON DIOXIDE 30 mmol/L (21-32); CHLORIDE 102 mmol/L (98-107); GLUCOSE 85 mg/dL (74-106); MAGNESIUM 1.8 mg/dL (1.8-2.4); PHOSPHORUS 3.7 mg/dL (2.5-4.9); POTASSIUM 3.4 mmol/L (3.5-5.1); SODIUM SERUM 137 mmol/L (136-145); TOTAL PROTEIN, SERUM 5.1 g/dL (6.4-8.2); UREA NITROGEN, BLOOD 38 mg/dL (7-18)
--- NOTE | 2019-05-17 08:00 | NUR ---
MS RN OPENING NOTES RECEIVED PT IN BED, AWAKE ALERT AND ORIENTED X3. UZBEK AND QATARI SPEAKING ONLY. VERY LIMITED UNDERSATNDING WITH CZECH. NO CARDIAC OR RESPIRATORY DISTRESS NOTED. NO SOB NOTED. ON O2 AT 4L/MIN SATURATING WELL. BREATHING EVEN AND UNLABORED. EDEMA NOTED TO BLE. SCHNEIDER CATHETER NOTED. INTACT AND PATENT. DRAINING WITH CLEAR YELLOW URINE. LAST BM NOTED TO BE TODAY FROM PREVIOUS SHIFT. NO S/S OF CONSTIPATION NOTED. ABD NON DISTENDED WITH ACTIVE BOWEL SOUNDS. IV ACCESS NOTED TO RICKEY MIDD-LINE CATH. NO S/S OF INFECTION OR INFILTRATION NOTED. INTACT, PATENT AND FLUSHING WELL. R CHEST PERMACATH NOTED BUT PER CASE LINER NURSE PT DOES NOT USE THIS SITE FOR DIALYSIS. INSTEAD L FEMORAL CATH HD CATH IS BEING USED FOR DIALYSIS. NO S/S OF INFECTION NOTED TO R CHEST PERMACTH AND L FEMORAL HD CATH. NO BLEEDING NOTED. SAFETY PRECUATIONS IN PLACE. BED LOCKED AND IN LOW POSITION. SIDE RAILS UP X 2. BED ALARM ON. WILL CONT TO MONITOR.
[2019-05-17] MEDS: PANTOPRAZOLE 40 MG VIAL IV SCH ×2 (08:13→20:50)
[2019-05-17] MEDS: hydrALAZINE HCL 50 MG TABLET PO SCH ×3 (08:14→16:05)
[2019-05-17] MEDS: FLUCONAZOLE (100 MG) 100 MG TABLET PO SCH (08:14)
[2019-05-17] MEDS: methylPREDNISolone SOD SUCC 125 MG/2ML VIAL IV SCH (08:14)
[2019-05-17] MEDS: ISOSORBIDE DINITRATE (20MG) 20 MG TABLET PO SCH ×2 (08:14→16:06)
[2019-05-17] MEDS: NIFEdipine XL (30MG) 30 MG TAB PO SCH (08:16)
[2019-05-17] MEDS: MUPIROCIN OINT 2% 22 GM TUBE SCH ×2 (08:30→20:51)
[2019-05-17] MEDS: CLOTRIMAZOLE 1% 15 GM TUBE TP SCH ×2 (08:31→16:06)
[2019-05-17] MEDS ORDERED: POTASSIUM CHLORIDE 20 MEQ TAB.PRT.SR PO SCH (10:00)
[2019-05-17] MEDS: METOPROLOL SUCCINATE 50 MG TAB.SR.24H PO SCH (10:03)
[2019-05-17] MEDS: POTASSIUM CHLORIDE 20 MEQ POWDER PACKET PO SCH ×3 (10:30→13:46)
--- NOTE | 2019-05-17 11:00 | NUR ---
REFUSING TO DO MRI PT REFUSED TO DO MRI. SPOKE WITH PT ALONG WITH A MALAYSIAN/THAI AIRBRUSH ARTIST TECHNICAL. EXPLAINED IMPORTANCE OF COMPLETING THE MRI. PT STRONGLY REFUSED AND IS ADAMANT ABOUT NOT DOING THE MRI OF ABD. OFFERED USE OF ATIVAN TO HELP HIM RELAX PRIOR TO PROCEDURE. BUT PT STILL REFUSED. PTS HECTOR (CHAD) ALSO MADE AWARE AND TRIED TALKING TO THE PT. BUT PT COULD NOT BE CONVINCED. HE STILL REFUSES. DR. RICHMOND MADE AWARE. DR. WOODS (ORDERING PHYSICIAN) ALSO MADE AWARE.
--- NOTE | 2019-05-17 12:00 | NUR ---
K REPLACEMENT K+ LEVELS NOTED AT 3.4. KCL 60MEG ADMINISTERED.
[2019-05-17] MEDS: CLONIDINE HCL 0.3 MG/24H PTWK 1 EA PATCH TD SCH (13:30)
--- NOTE | 2019-05-17 15:00 | NUR ---
S/P HEMODIALYSIS PT DIALYZED TODAY, TOOK OUT 2L.
--- NOTE | 2019-05-17 18:43 | NUR ---
MS RN CLOSING NOTES MS RN OPENING NOTES PT IN BED, AWAKE ALERT AND ORIENTED X3. AMHARIC AND SWISS SPEAKING ONLY. VERY LIMITED UNDERSTANDING WITH MONTSERRATIAN. NO CARDIAC OR RESPIRATORY DISTRESS NOTED. NO SOB NOTED. ON O2 AT 5L/MIN SATURATING WELL. EDEMA NOTED TO BLE. SCHNEIDER CATHETER NOTED. INTACT AND PATENT. DRAINING WITH CLEAR YELLOW URINE. IV ACCESS NOTED TO RICKEY MIDD-LINE CATH. NO S/S OF INFECTION OR INFILTRATION NOTED. INTACT, PATENT AND FLUSHING WELL. R CHEST PERMACATH NOTED BUT PER BEAUTY SALES CONSULTANT NURSE PT DOES NOT USE THIS SITE FOR DIALYSIS. INSTEAD L FEMORAL CATH HD CATH IS BEING USED FOR DIALYSIS. PT WAS DIALYZED TODAY TOOK OUT 2L. NO S/S OF INFECTION NOTED TO R CHEST PERMACTH AND L FEMORAL HD CATH AND RICKEY MIDLINE. NO BLEEDING NOTED. PT REFUSED MRI TODAY. EXPLAINED RISKS AND CONSEQUENCES AND NEGATIVE OUTCOMES OF NON COMPLIANT BEHAVIOR. PT STILL REFUSED. PTS HECTOR AWARE. DR. RICHMOND AND DR. WOODS AWARE. SAFETY PRECUATIONS IN PLACE. BED LOCKED AND IN LOW POSITION. SIDE RAILS UP X 2. BED ALARM ON.
--- NOTE | 2019-05-17 19:54 | NUR ---
RECIEVED ALERT AND ORIENTATED. SPEECH CLEAR VERBALIZING HIS NEEDS. OFFERED HIS SOUP MADE FROM HOME TOOK 3 SPOONFULS SWALLOWED W/O PROBLEMS WATCHING TV GLASSES ON.
[2019-05-18] VITALS (7 sets, daily range): BP systolic 120–153; BP diastolic 62–84
--- NOTE | 2019-05-18 04:26 | NUR ---
ENDING NOTES: ALERT AND ORIENTATED X4. SPEEAKING OSME MACEDONIAN ABLE TO MAKE HIS NEEDS KNOWN KNOWN. SCHNEIDER IN PLACE DRAINAGE CLEAR TEA COLOR.UNABLE TO DRAW THE AM LABS (BLOOD)) THIS AM USING THE RIGHT ARE MIDLINE. ABLE TO FLUSH W/O PROBLEM BOTH LUMENS. HECTOR BROUGHT IN HOMEMADE SOUP THE PT ONLY ATE 3 SPOONFULS. NOTED 2 + EDEMA IN THE FEET FEET WARM NO SOB THIS 12 HOURS. 02 2LITER SATS 94 - 96%
[2019-05-18 06:43] LABS: BASOPHILS % (AUTO) 0.2 % (0.0-2.0); HEMATOCRIT 26 % (39-51); HEMOGLOBIN 8.6 g/dL (13.5-17.5); LYMPHOCYTES # (AUTO) 0.4 /CMM (0.8-4.8); LYMPHOCYTES % (AUTO) 6.3 % (20.0-44.0); MEAN CORPUSCULAR HGB CONC 33 g/dl (31.0-36.0); MEAN CORPUSCULAR VOLUME 93 fL (80-96); MONOCYTES # (AUTO) 0.8 /CMM (0.1-1.30); MONOCYTES % (AUTO) 11.9 % (2.0-12.0); NEUTROPHILS # (AUTO) 5.7 /CMM (1.8-8.9); NEUTROPHILS % (AUTO) 81.6 % (43.0-81.0); PLATELET COUNT (AUTO) 72 /CMM (150-450); RED BLOOD CELL COUNT(AUTO) 2.83 MIL/uL (4.5-6.0)
[2019-05-18 07:18] LABS: CALCIUM, SERUM 7.9 mg/dL (8.5-10.1); CARBON DIOXIDE 28 mmol/L (21-32); CHLORIDE 103 mmol/L (98-107); CREATININE 1.8 mg/dL (0.6-1.3); GLUCOSE 95 mg/dL (74-106); POTASSIUM 4.1 mmol/L (3.5-5.1); SODIUM SERUM 137 mmol/L (136-145); UREA NITROGEN, BLOOD 39 mg/dL (7-18)
--- NOTE | 2019-05-18 07:20 | NUR ---
M/S RN NOTES PATIENT RESTING IN BED, NO RESPIRATORY DISTRESS, ON O2 AT 2LPM VIA NASAL CANULA. NO C/O PAIN AT THIS TIME. SKIN WARM TO TOUCH, IV ACCESS SITE INTACT AND PATENT. PORTACATH ON THE RT CHEST WALL INTACT AND LT FEMORAL HD ACCESS INTACT. F/C INTACT AND DRAINING TEA COLOR URINE. PATIENT'S NEEDS ATTENDED, BED ON LOWEST LOCKED POSITION, CALL LIGHT WITHIN REACH. WILL CONTINUE TO MONITOR.
[2019-05-18 07:35] LABS: ALANINE AMINOTRANSFERASE 14 U/L (12-78); ALKALINE PHOSPHATASE 75 U/L (46-116); ASPARTATE AMINOTRANSFERASE 31 U/L (15-37); BILIRUBIN,TOTAL 0.7 mg/dL (0.2-1.0); TOTAL PROTEIN, SERUM 5.1 g/dL (6.4-8.2)
[2019-05-18] MEDS: ISOSORBIDE DINITRATE (20MG) 20 MG TABLET PO SCH ×2 (09:26→16:08)
[2019-05-18] MEDS: NIFEdipine XL (30MG) 30 MG TAB PO SCH (09:26)
[2019-05-18] MEDS: FLUCONAZOLE (100 MG) 100 MG TABLET PO SCH (09:27)
[2019-05-18] MEDS: hydrALAZINE HCL 50 MG TABLET PO SCH ×3 (09:27→16:08)
[2019-05-18] MEDS: methylPREDNISolone SOD SUCC 125 MG/2ML VIAL IV SCH (09:27)
[2019-05-18] MEDS: PANTOPRAZOLE 40 MG VIAL IV SCH ×2 (09:28→20:52)
[2019-05-18] MEDS: CLOTRIMAZOLE 1% 15 GM TUBE TP SCH ×2 (09:40→16:09)
[2019-05-18] MEDS: MUPIROCIN OINT 2% 22 GM TUBE SCH ×2 (09:41→20:52)
[2019-05-18] MEDS: METOPROLOL SUCCINATE 50 MG TAB.SR.24H PO SCH (11:22)
[2019-05-18] MEDS: ACETAMINOPHEN 325 MG TABLET PO PRN (11:26)
--- NOTE | 2019-05-18 16:00 | NUR ---
M/S RN NOTES PATIENT FINISHED WITH HD BY BRIGID. 1.5 L REMOVED, PATIENT IN STABLE CONDITION, NO RESPIRATORY DISTRESS, NO C/O ANY DISCOMFORT AT THIS TIME.
--- NOTE | 2019-05-18 18:42 | NUR ---
M/S RN NOTES PATIENT AWAKE IN BED WATCHING TV, NO RESPIRATORY DISTRESS, ON O2 AT 2LPM VIA NASAL CANULA. NO C/O PAIN AT THIS TIME. SKIN WARM TO TOUCH, IV ACCESS SITE INTACT AND PATENT. PATIENT'S NEEDS ATTENDED, BED ON LOWEST LOCKED POSITION, CALL LIGHT WITHIN REACH. WILL ENDORSE TO ONCOMING NURSE.
--- NOTE | 2019-05-19 00:35 | NUR ---
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 PATIENT IN BED RESTING. PATIENT ON 2 L NASAL CANNULA, WITH NO SIGNS OF SOB, RESPIRATORY DISTRESS. SAFETY PRECAUTIONS IMPLEMENTED, BED IN THE LOWEST POSITION, BED LOCKED, BILATERAL SIDE RAILS UP, AND CALL LIGHT WITHIN EASY REACH OF PATIENT. WILL CONTINUE TO MONITOR PATIENT.
[2019-05-19 04:00] VITALS: BP 128/66
--- NOTE | 2019-05-19 06:51 | NUR ---
MS RN NOTES PATIENT IN BED SLEEPING, EASILY AWAKEN BY NAME AND LIGHT TOUCH. MAINLY ENGLISH AND CITIZEN OF [place] SPEAKING. NO SIGNS OF RESPIRATORY DISTRESS PRESENT AT THIS TIME, TOLERATING NASAL CANNULA. PATIENT SCHNEIDER IN PLACE WITH TEA COLOR/RYAN URINE OUTPUT. PATIENT SKIN KEPT CLEAN AND DRY, IV ACCESS IN PLACE, PATENT AND INTACT. MET ALL OF PATIENT NEEDS, PROVIDED COMFORT MEASURES TO PATIENT. SAFETY PRECAUTIONS IMPLEMENTED WITH BED LOCKED, BED ALARM ON, BILATERAL SIDE RAILS UP, AND CALL LIGHT WITHIN EASY REACH OF PATIENT. WILL ENDORSE PLAN OF CARE TO UPCOMING DAYSHIFT NURSE.
[2019-05-19 06:57] LABS: BASOPHILS % (AUTO) 0.1 % (0.0-2.0); EOSINOPHILS % (AUTO) 0.1 % (0.0-6.0); HEMATOCRIT 25 % (39-51); HEMOGLOBIN 8.3 g/dL (13.5-17.5); LYMPHOCYTES # (AUTO) 0.5 /CMM (0.8-4.8); LYMPHOCYTES % (AUTO) 6.7 % (20.0-44.0); MEAN CORPUSCULAR HGB CONC 33 g/dl (31.0-36.0); MEAN CORPUSCULAR VOLUME 93 fL (80-96); MONOCYTES # (AUTO) 0.9 /CMM (0.1-1.30); MONOCYTES % (AUTO) 10.7 % (2.0-12.0); NEUTROPHILS # (AUTO) 6.7 /CMM (1.8-8.9); NEUTROPHILS % (AUTO) 82.4 % (43.0-81.0); PLATELET COUNT (AUTO) 78 /CMM (150-450); RED BLOOD CELL COUNT(AUTO) 2.72 MIL/uL (4.5-6.0); WHITE BLOOD COUNT (AUTO) 8.1 K/uL (4.3-11.0)
[2019-05-19 07:06] LABS: ALANINE AMINOTRANSFERASE 19 U/L (12-78); ALKALINE PHOSPHATASE 74 U/L (46-116); ASPARTATE AMINOTRANSFERASE 31 U/L (15-37); BILIRUBIN,TOTAL 0.7 mg/dL (0.2-1.0); CALCIUM, SERUM 7.9 mg/dL (8.5-10.1); CARBON DIOXIDE 30 mmol/L (21-32); CHLORIDE 104 mmol/L (98-107); CREATININE 1.8 mg/dL (0.6-1.3); GLUCOSE 79 mg/dL (74-106); POTASSIUM 3.9 mmol/L (3.5-5.1); SODIUM SERUM 139 mmol/L (136-145); TOTAL PROTEIN, SERUM 4.9 g/dL (6.4-8.2); UREA NITROGEN, BLOOD 42 mg/dL (7-18)
--- NOTE | 2019-05-19 07:34 | NUR ---
MS RN OPENING NOTES RECEIVED PATIENT IN BED, ASLEEP. PATIENT ON O2 THERAPY, 5 LPM VIA NASAL CANNULA. BREATHING IS EVEN AND SYMMETRICAL WITH NO SOB PRESENT AT THIS TIME. NO SIGNS OF PAIN SUCH FACIAL GRIMACING, MOANING OR GUARDING. SCHNEIDER CATH IN PLACE AND DRAINING TEA COLORED URINE. RICKEY MIDLINE, R CHEST WALL PORTAL CATH IN PLACE, INTACT AND PATENT. SAFETY PRECAUTIONS IN PLACE; BED IN LOW POSITION AND LOCKED, RAILS UP X2, CALL LIGHT WITHIN REACH. WILL CONTINUE TO MONITOR PATIENT.
[2019-05-19 08:00] VITALS: BP 138/73
[2019-05-19 09:06] VITALS: BP 138/73
[2019-05-19] MEDS: PANTOPRAZOLE 40 MG VIAL IV SCH (09:25)
[2019-05-19] MEDS: methylPREDNISolone SOD SUCC 125 MG/2ML VIAL IV SCH (09:25)
[2019-05-19] MEDS: NIFEdipine XL (30MG) 30 MG TAB PO SCH (09:27)
[2019-05-19] MEDS: hydrALAZINE HCL 50 MG TABLET PO SCH ×2 (09:28→13:00)
[2019-05-19] MEDS: FLUCONAZOLE (100 MG) 100 MG TABLET PO SCH (09:28)
[2019-05-19] MEDS: ISOSORBIDE DINITRATE (20MG) 20 MG TABLET PO SCH ×2 (09:28→18:10)
[2019-05-19] MEDS: CLOTRIMAZOLE 1% 15 GM TUBE TP SCH ×2 (09:28→17:00)
[2019-05-19] MEDS: MUPIROCIN OINT 2% 22 GM TUBE SCH ×2 (09:28→21:51)
[2019-05-19] MEDS: PANTOPRAZOLE 40 MG TABLET.DR PO SCH (10:30)
[2019-05-19] MEDS: METOPROLOL SUCCINATE 50 MG TAB.SR.24H PO SCH (10:30)
--- NOTE | 2019-05-19 11:03 | NUR ---
MS RN NOTES 10:30 PANTOPRAZOLE NOT ADMINISTERED DUE TO DOUBLE ORDER. IT WAS ALREADY ADMINISTERED AT 0900. MD NOTIFIED. ONE ORDER IS D/C PER MD
[2019-05-19] MEDS: HEPARIN SODIUM, PORCINE 5000 UNITS/1 ML VIAL SQ SCH ×2 (15:18→21:50)
--- NOTE | 2019-05-19 15:29 | NUR ---
MS RN NOTES 5000 UNITS OF HEPARIN ORDERED FOR ADMINISTRATION BY DR. WOODS. WHEN CHECKING PATIENT LABS, PLATELETS WERE AT 78. DOUBLE CHECKED WITH MD IF IT IS SAFE TO ADMINISTERED THE MEDICATION. MD REPLIED YES. 5000 UNITS HEPARIN ADMINISTERED PER MD ORDER.
[2019-05-19 16:00] VITALS: BP 127/69
[2019-05-19 17:05] VITALS: BP 127/69
--- NOTE | 2019-05-19 19:00 | NUR ---
MS RN CLOSING NOTES PATIENT IN BED, A/O X4, WATCHING TV. PATIENT ON O2 THERAPY, 5 LPM VIA NASAL CANNULA. BREATHING IS EVEN AND SYMMETRICAL WITH NO SOB PRESENT AT THIS TIME. NO SIGNS OF PAIN SUCH FACIAL GRIMACING, MOANING OR GUARDING. SCHNEIDER CATH IN PLACE AND DRAINING TEA COLORED URINE WITH A TOTAL OUTPUT OF 50 MLS FOR THE SHIFT. RICKEY MIDLINE, R CHEST WALL PORTAL CATH IN PLACE, INTACT AND PATENT. ALL NEEDS ATTENDED TO THROUGHOUT THE DAY. SAFETY PRECAUTIONS IN PLACE; BED IN LOW POSITION AND LOCKED, RAILS UP X2, CALL LIGHT WITHIN REACH. WILL ENDORSE TO LSW NURSE.
--- NOTE | 2019-05-19 19:15 | NUR ---
MS RN NOTES RECEIVED PT IN BED AWAKE AND ABLE TO MAKE NEEDS KNOWN. PT A/O X3 HAITIAN/SAMMARINESE SPEAKING. RESPIRATIONS EVEN AND UNLABORED WITH NO S/S OF ACUTE DISTRESS OR SOB NOTED. PT NOTED WITH RICKEY MIDLINE PATENT AND INTACT AND SL. PT NOTED WITH FC, DRAINING WELL. SAFETY MEASURES IN PLACE WITH BED IN LOWEST LOCKED POSITION WITH SIDE RAILS UP X2. CALL LIGHT WITHIN REACH. WILL CONTINUE TO MONITOR.
[2019-05-19] MEDS ORDERED: hydrALAZINE HCL 50 MG TABLET PO ONE (21:00)
[2019-05-20 06:32] LABS: BASOPHILS % (AUTO) 0.1 % (0.0-2.0); HEMATOCRIT 26 % (39-51); HEMOGLOBIN 8.6 g/dL (13.5-17.5); LYMPHOCYTES # (AUTO) 0.6 /CMM (0.8-4.8); LYMPHOCYTES % (AUTO) 7.2 % (20.0-44.0); MEAN CORPUSCULAR HGB CONC 34 g/dl (31.0-36.0); MEAN CORPUSCULAR VOLUME 92 fL (80-96); MONOCYTES # (AUTO) 0.8 /CMM (0.1-1.30); MONOCYTES % (AUTO) 9.6 % (2.0-12.0); NEUTROPHILS # (AUTO) 6.8 /CMM (1.8-8.9); NEUTROPHILS % (AUTO) 83.1 % (43.0-81.0); PLATELET COUNT (AUTO) 91 /CMM (150-450); RED BLOOD CELL COUNT(AUTO) 2.77 MIL/uL (4.5-6.0); WHITE BLOOD COUNT (AUTO) 8.2 K/uL (4.3-11.0)
[2019-05-20 06:58] LABS: ALANINE AMINOTRANSFERASE 29 U/L (12-78); ALBUMIN 1.9 g/dL (3.4-5.0); ALKALINE PHOSPHATASE 88 U/L (46-116); ASPARTATE AMINOTRANSFERASE 37 U/L (15-37); BILIRUBIN,TOTAL 0.6 mg/dL (0.2-1.0); CALCIUM, SERUM 7.8 mg/dL (8.5-10.1); CARBON DIOXIDE 31 mmol/L (21-32); CHLORIDE 103 mmol/L (98-107); CREATININE 1.8 mg/dL (0.6-1.3); GLUCOSE 78 mg/dL (74-106); SODIUM SERUM 138 mmol/L (136-145); TOTAL PROTEIN, SERUM 4.8 g/dL (6.4-8.2); UREA NITROGEN, BLOOD 55 mg/dL (7-18)
--- NOTE | 2019-05-20 07:30 | NUR ---
RN MS NOTES PT IN BED, AWAKE, ALERT AND VERBALLY RESPONSIVE, NO COMPLAINT OF PAIN OR ANY DISCOMFORT, RESPIRATIONS NORMAL, CALL LIGHT WITHIN REACH, KEPT WARM AND COMFORTABLE IN BED.
--- NOTE | 2019-05-20 07:42 | NUR ---
MS RN NOTES PT IN BED AWAKE AND ABLE TO MAKE NEEDS KNOWN. PT A/O X3 MEXICAN/ZIMBABWEAN SPEAKING. RESPIRATIONS EVEN AND UNLABORED WITH NO S/S OF ACUTE DISTRESS OR SOB NOTED THROUGHOUT SHIFT. PT KEPT CLEAN, DRY, AND COMFORTABLE. PT NOTED WITH RICKEY MIDLINE PATENT AND INTACT AND SL. PT NOTED WITH FC, DRAINING WELL. SAFETY MEASURES IN PLACE WITH BED IN LOWEST LOCKED POSITION WITH SIDE RAILS UP X2. CALL LIGHT WITHIN REACH. WILL ENDORSE TO ONCOMING NURSE FOR ELVIA.
[2019-05-20 08:00] VITALS: BP 159/89
[2019-05-20] MEDS: methylPREDNISolone SOD SUCC 125 MG/2ML VIAL IV SCH (08:22)
[2019-05-20] MEDS: FLUCONAZOLE (100 MG) 100 MG TABLET PO SCH (08:22)
[2019-05-20] MEDS: NIFEdipine XL (30MG) 30 MG TAB PO SCH (08:23)
[2019-05-20] MEDS: PANTOPRAZOLE 40 MG TABLET.DR PO SCH (08:23)
[2019-05-20] MEDS: ISOSORBIDE DINITRATE (20MG) 20 MG TABLET PO SCH ×2 (08:23→16:16)
[2019-05-20] MEDS: hydrALAZINE HCL 50 MG TABLET PO SCH ×3 (08:24→16:15)
[2019-05-20] MEDS: HEPARIN SODIUM, PORCINE 5000 UNITS/1 ML VIAL SQ SCH ×2 (08:26→21:11)
[2019-05-20] MEDS: CLOTRIMAZOLE 1% 15 GM TUBE TP SCH ×2 (08:38→16:33)
[2019-05-20] MEDS: MUPIROCIN OINT 2% 22 GM TUBE SCH ×2 (08:39→21:26)
[2019-05-20] MEDS: METOPROLOL SUCCINATE 50 MG TAB.SR.24H PO SCH (10:30)
--- NOTE | 2019-05-20 11:45 | NUR ---
MARQUIS MS NOTES PT IN BED, DR. ASHRAF ORDERED 1 UNIT PRBC, PT INFORMED, CONSENT SIGNED, MAINTAINED ON ISOLATION PRECAUTIONS, NEEDS ATTENDED, DUE MEDS GIVEN ORDERED. Addendum: 05/20/19 at 1204 by JOSE DE JESUS CANNON RN KINDLY DISREGARD THE ABOVE NOTE, WRONG PT.
[2019-05-20 12:00] VITALS: BP 103/46
--- NOTE | 2019-05-20 12:57 | NUR ---
RN MS NOTES BP MED NOT GIVEN, PT WITH ONGOING DIALYSIS, BRIA 105/53 HR 77.
[2019-05-20 16:00] VITALS: BP 130/76
--- NOTE | 2019-05-20 18:31 | NUR ---
RN MS NOTES PT IN BED, AWAKE, ALERT AND ORIENTED, EATING DINNER, TOLERATES WELL, NOT IN DISTRESS, DENIES PAIN, PM MEDS GIVEN ORDERED, ASSISTED IN TURNING AND REPOSITIONING, CALL LIGHT WITHIN REACH, TO BE MOVED TO MS2 RM 201, REPORT GIVEN TO ADELINE CHO, NEEDS ATTENDED, VITALS STABLE.
[2019-05-20 18:55] VITALS: BP 136/66
--- NOTE | 2019-05-20 18:58 | NUR ---
MS BOOKMAKER'S CLERK NOTE PATIENT ARRIVED AT 1855 BY BED FROM [facility]AN. REPORT RECEIVED FROM JOSE DE JESUS CHO. PATIENT IN NO ACUTE DISTRESS. NO SOB NOTED. PATIENT BREATHING IS EVEN AND UNLABORED. PATIENT SCHNEIDER CATHETER HANGING TO GRAVITY, DRAINING TEA COLORED URINE. PER PATIENT CLOTHES, RING, AND PHONE WHEN HOME WITH PATIENT FAMILY, JOSE DE JESUS RN TO VERIFY BELONGINGS WENT HOME WITH PATIENTS FAMILY.PATIENT SAFETY PRECAUTIONS IN PLACE. HOB IS ELEVATED. PATIENT BED ALARM IS ON. PATIENT BED IS LOCKED AND IN LOWEST POSITION. CALL LIGHT WITHIN REACH. WILL ENDORSE CARE TO PM SHIFT FOR ELVIA.
--- NOTE | 2019-05-20 19:00 | NUR ---
RN MS NOTES PT TRANSPORTED TO MS2 ROOM 201 WITH ALL MEDS AND BELONGINGS, RECEIVED BY ADELINE CHO.
--- NOTE | 2019-05-20 19:40 | NUR ---
MS RN OPENING NOTES PATIENT RECEIVED RESTING IN BED, A/O X3 MOSTLY OCCITAN/ MARSHALLESE SPEAKING. ON 4L OF O2 VIA NC WITH BREATHING EVEN AND UNLABORED, NO SOB NOTED. NO SIGNS OF ACUTE DISTRESS. NO COMPLAINTS OF PAIN OR DISCOMFORT, NO FACIAL GRIMACING. SCHNEIDER CATHETER IN PLACE WITH TEA COLORED URINE DRAINING. R CHEST DIAZ CATH, RICKEY MIDLINE, AND L FEMORAL HD ACCESS NOTED AND INTACT. SAFETY PRECAUTIONS IN PLACE WITH BED IN LOWEST POSITION, CALL LIGHT WITHIN REACH, BREAKS ON, SIDE RAILS UP. WILL CONTINUE TO MONITOR THROUGHOUT THE SHIFT.
[2019-05-20 20:00] VITALS: BP 135/70
[2019-05-21 06:40] LABS: CALCIUM, SERUM 7.7 mg/dL (8.5-10.1); CARBON DIOXIDE 29 mmol/L (21-32); CHLORIDE 102 mmol/L (98-107); CREATININE 1.4 mg/dL (0.6-1.3); GLUCOSE 75 mg/dL (74-106); POTASSIUM 4.1 mmol/L (3.5-5.1); SODIUM SERUM 137 mmol/L (136-145); UREA NITROGEN, BLOOD 45 mg/dL (7-18)
--- NOTE | 2019-05-21 06:42 | NUR ---
MS RN CLOSING NOTES PATIENT RESTING IN BED, A/O X3 MOSTLY PERSIAN/ ARMENIAN SPEAKING. ON 3L OF O2 VIA NC WITH BREATHING EVEN AND UNLABORED, NO SOB NOTED. NO SIGNS OF ACUTE DISTRESS. NO COMPLAINTS OF PAIN OR DISCOMFORT, NO FACIAL GRIMACING. SCHNEIDER CATHETER IN PLACE WITH TEA COLORED URINE DRAINING. R CHEST DIAZ CATH, RICKEY MIDLINE, AND L FEMORAL HD ACCESS NOTED AND INTACT. SAFETY PRECAUTIONS IN PLACE WITH BED IN LOWEST POSITION, CALL LIGHT WITHIN REACH, BREAKS ON, SIDE RAILS UP. ALL NEEDS ATTENDED TO. PATIENT WAS KEPT CLEAN AND DRY THROUGHOUT THE NIGHT. WILL ENDORSE TO ONCOMING SHIFT ABOUT ELVIA.
--- NOTE | 2019-05-21 07:19 | NUR ---
MS RN OPENING NOTE RECEIVED PATIENT IN BED SLEEPING COMFORTABLY. PATIENT IN NO ACUTE DISTRESS. NO SOB NOTED. PATIENT BREATHING IS EVEN AND UNLABORED. PATIENT SCHNEIDER CATHETER HANGING TO GRAVITY, DRAINING TEA COLORED URINE. PATIENT SAFETY PRECAUTIONS IN PLACE. PATIENT BED ALARM IS ON. PATIENT BED IS LOCKED AND IN LOWEST POSITION. CALL LIGHT WITHIN REACH. WILL CONTINUE TO MONITOR.
[2019-05-21 08:00] VITALS: BP 155/75
[2019-05-21] MEDS: methylPREDNISolone SOD SUCC 125 MG/2ML VIAL IV SCH (08:22)
[2019-05-21] MEDS: hydrALAZINE HCL 50 MG TABLET PO SCH ×3 (08:24→16:16)
[2019-05-21] MEDS: PANTOPRAZOLE 40 MG TABLET.DR PO SCH (08:25)
[2019-05-21] MEDS: ISOSORBIDE DINITRATE (20MG) 20 MG TABLET PO SCH ×2 (08:25→16:16)
[2019-05-21] MEDS: NIFEdipine XL (30MG) 30 MG TAB PO SCH (08:26)
[2019-05-21] MEDS: MUPIROCIN OINT 2% 22 GM TUBE SCH ×2 (08:29→21:03)
[2019-05-21] MEDS: CLOTRIMAZOLE 1% 15 GM TUBE TP SCH ×2 (08:29→16:17)
[2019-05-21] MEDS: HEPARIN SODIUM, PORCINE 5000 UNITS/1 ML VIAL SQ SCH ×2 (08:35→20:57)
[2019-05-21] MEDS: METOPROLOL SUCCINATE 50 MG TAB.SR.24H PO SCH (10:28)
--- NOTE | 2019-05-21 11:09 | NUR ---
MS RN NOTE PER SHIRA DIETARY DC NEPRO DRINK IF PATIENT DOES NOT LIKE IT. PATIENT TRIED NEPRO DRINK AGAIN AND PREFERS NOT TO HAVE OR DRINK ANYMORE. DISCONTINUED NEPRO DRINK PER SHIRA.
--- NOTE | 2019-05-21 11:13 | NUR ---
MS RN NOTE SPOKE WITH PATIENT AND FAMILY MEMBER ORLIN ABOUT US GUIDED BIOPSY OF THE KIDNEY ORDERED TODAY. PER PATIENT AND FAMILY REQUEST NOT TO HAVE BIOPSY DONE. PATIENT AND FAMILY SPOKE WITH DR. WOODS REGARDING BIOPSY ALREADY AND IS REFUSING TO HAVE BIOPSY. CALLED OFFICES TO NOTIFY DR. ESPINO ABOUT REFUSAL FOR PROCEDURE. DR. CRAVEN NOTIFIED AND MADE AWARE. PER DR. CRAVEN ORDERS TO CANCEL BIOPSY.
--- NOTE | 2019-05-21 12:27 | NUR ---
MS RN NOTE HELD HYDRALAZINE HCL 1300 DOSE DUE TO PATIENT UNDERGOING DIALYSIS AT THIS TIME.
[2019-05-21 16:00] VITALS: BP 130/71
--- NOTE | 2019-05-21 18:16 | NUR ---
MS RN CLOSING NOTE PATIENT IN BED RESTING COMFORTABLY. PATIENT IN NO ACUTE DISTRESS. NO SOB NOTED. PATIENT BREATHING IS EVEN AND UNLABORED. PATIENT SCHNEIDER CATHETER HANGING TO GRAVITY, DRAINING TEA COLORED URINE. PATIENT KEPT CLEAN, DRY AND COMFORTABLE THROUGHOUT SHIFT. PATIENT TURNED AND REPOSITIONED Q2H MUCH PATIENT WOULD ALLOW. PATIENT SAFETY PRECAUTIONS IN PLACE. NEEDS AND CONCERNS ADDRESSED. PATIENT BED ALARM IS ON. PATIENT BED IS LOCKED AND IN LOWEST POSITION. CALL LIGHT WITHIN REACH. WILL ENDORSE CARE TO PM SHIFT FOR ELVIA.
--- NOTE | 2019-05-21 19:10 | NUR ---
MS/RN OPENING NOTES: RECEIVED PATIENT RESTING IN BED, REMAINS A/O X3. MOSTLY [place]/ FINNISH SPEAKING. UNDERSTANDS EMIRATI. ON 4L OF O2 VIA NC. BREATHING EVEN AND UNLABORED, NO SOB NOTED. NO SIGNS OF ACUTE DISTRESS. NO COMPLAINTS OF PAIN OR DISCOMFORT AT THIS TIME. SCHNEIDER CATHETER IN PLACE WITH TEA COLORED URINE DRAINING. R CHEST DIAZ CATH, RICKEY MIDLINE, AND L FEMORAL HD ACCESS NOTED AND INTACT. SAFETY PRECAUTIONS IN PLACE WITH BED IN LOWEST POSITION, CALL LIGHT WITHIN REACH, BREAKS ON, SIDE RAILS UP X2. WILL CONTINUE TO MONITOR ACCORDINGLY.
[2019-05-21 19:51] VITALS: BP 134/70
[2019-05-21 20:00] VITALS: BP 134/70
--- NOTE | 2019-05-22 06:18 | NUR ---
MS/RN CLOSING NOTE: PATIENT IS RESTING IN BED COMFORTABLY. REMAINS A/OX3. IN NO ACUTE DISTRESS. ON 4L OF OXYGEN VIA NC. NO SOB NOTED. PATIENT BREATHING IS EVEN AND UNLABORED. PATIENT SCHNEIDER CATHETER HANGING TO GRAVITY, DRAINING TEA COLORED URINE. IRRIGATED SCHNEIDER PER MD ORDER. TOTAL OUTPUT OF 155ML. PATIENT KEPT CLEAN, DRY, WARM AND COMFORTABLE THROUGHOUT THE SHIFT. PATIENT TURNED AND REPOSITIONED Q2H MUCH PATIENT WOULD ALLOW. PATIENT SAFETY PRECAUTIONS IN PLACE. ALL NURSING NEEDS AND CONCERNS ADDRESSED. PATIENT BED ALARM IS ON. PATIENT BED IS LOCKED AND IN LOWEST POSITION. CALL LIGHT WITHIN REACH. WILL ENDORSE TO DAY SHIFT RN FOR ELVIA.
[2019-05-22 06:38] LABS: EOSINOPHILS % (AUTO) 0.2 % (0.0-6.0); HEMATOCRIT 27 % (39-51); LYMPHOCYTES # (AUTO) 0.5 /CMM (0.8-4.8); LYMPHOCYTES % (AUTO) 7.4 % (20.0-44.0); MEAN CORPUSCULAR HGB CONC 33 g/dl (31.0-36.0); MEAN CORPUSCULAR VOLUME 93 fL (80-96); MONOCYTES # (AUTO) 0.5 /CMM (0.1-1.30); MONOCYTES % (AUTO) 7.2 % (2.0-12.0); NEUTROPHILS # (AUTO) 5.9 /CMM (1.8-8.9); NEUTROPHILS % (AUTO) 85.2 % (43.0-81.0); PLATELET COUNT (AUTO) 128 /CMM (150-450); RED BLOOD CELL COUNT(AUTO) 2.92 MIL/uL (4.5-6.0); WHITE BLOOD COUNT (AUTO) 6.9 K/uL (4.3-11.0)
[2019-05-22 06:55] LABS: CALCIUM, SERUM 7.9 mg/dL (8.5-10.1); CARBON DIOXIDE 29 mmol/L (21-32); CHLORIDE 103 mmol/L (98-107); CREATININE 1.5 mg/dL (0.6-1.3); GLUCOSE 91 mg/dL (74-106); MAGNESIUM 1.9 mg/dL (1.8-2.4); PHOSPHORUS 3.2 mg/dL (2.5-4.9); POTASSIUM 4.1 mmol/L (3.5-5.1); SODIUM SERUM 138 mmol/L (136-145); UREA NITROGEN, BLOOD 43 mg/dL (7-18)
--- NOTE | 2019-05-22 07:15 | NUR ---
MS RN NOTES RECEIVED PATIENT IN BED ALERT AND AWAKE, ORIENTED X3. HOB ELEVATED. ON ROOM AIR WITH SP02 95%. NO SOB OBSERVED. DENIES ANY C/O PAIN NOR DISCOMFORT AT THIS TIME. RICKEY MIDLINE INTACT AND PATENT. LEFT FEMORAL HD CATH INTACT WITH DRESSING IN PLACE. RT [id number] CATH INTACT. BED IN LOWEST POSITION, LOCKED. BED ALARM ON. CALL LIGHT WITHIN REACH. ABLE TO VERBALIZE NEEDS.
[2019-05-22 08:00] VITALS: BP 160/78
--- NOTE | 2019-05-22 08:20 | NUR ---
MS RN NOTES AFTER WORKING WITH PHYSICAL THERAPIST, PATIENT BECAME ANXIOUS AND STATED CAN'T BREATH. SPO2 NOTED 87% O2 @ 3L/MIN VIA NC GIVEN WITH SPO2 OF 92%. WILL CONTINUE TO MONITOR.
[2019-05-22] MEDS: methylPREDNISolone SOD SUCC 125 MG/2ML VIAL IV SCH (08:41)
[2019-05-22] MEDS: NIFEdipine XL (30MG) 30 MG TAB PO SCH (08:42)
[2019-05-22] MEDS: PANTOPRAZOLE 40 MG TABLET.DR PO SCH (08:43)
[2019-05-22] MEDS: ISOSORBIDE DINITRATE (20MG) 20 MG TABLET PO SCH ×2 (08:43→16:49)
[2019-05-22] MEDS: hydrALAZINE HCL 50 MG TABLET PO SCH ×3 (08:43→16:49)
[2019-05-22] MEDS: MUPIROCIN OINT 2% 22 GM TUBE SCH ×2 (08:44→21:39)
[2019-05-22] MEDS: CLOTRIMAZOLE 1% 15 GM TUBE TP SCH ×2 (08:44→17:08)
--- NOTE | 2019-05-22 08:45 | NUR ---
MS RN NOTES TITRATED 02 TO 2L/MIN VIA NC SPO2 93% CLEMENT WELL. DISCUSSED AND EDUCATED PATIENT REGARDING RELAXATION TECHNIQUES.
[2019-05-22] MEDS: HEPARIN SODIUM, PORCINE 5000 UNITS/1 ML VIAL SQ SCH ×2 (08:46→21:39)
[2019-05-22] MEDS: METOPROLOL SUCCINATE 50 MG TAB.SR.24H PO SCH (10:30)
--- NOTE | 2019-05-22 11:20 | NUR ---
MS RN NOTES HELP BP MED. BP 107/52 HR:80
--- NOTE | 2019-05-22 13:30 | NUR ---
MS RN NOTES HELD ROSS EpsteinP104/64 HR:75
--- NOTE | 2019-05-22 15:00 | NUR ---
MS RN NOTES PATIENT C/O SOB SPO2 @ 92% WITH O2 INCREASED TO 4L/MIN VIA NC WITH INCREASE IN SPO2 @ 93%
--- NOTE | 2019-05-22 15:34 | NUR ---
MS RN NOTES TITRATED O2 @ 3L/MIN VIA NC, SPO2 93%.
--- NOTE | 2019-05-22 15:49 | NUR ---
MS RN NOTES TITRATED 02 TO 1L/MIN VIA NC SPO2 94%. PATIENT CALM AND RELAXED WATCHING TV.
[2019-05-22 16:00] VITALS: BP 133/69
--- NOTE | 2019-05-22 18:59 | NUR ---
MS RN NOTES PATIENT RESTING COMFORTABLY IN BED. HOB ELEVATED. NO S/S OF RESPIRATORY DISTRESS. SPO2 95% @ 1L/MIN VIA NC. DENIES ANY C/O PAIN NOR DISCOMFORT AT THIS TIME. PATIENT WITH EPISODES OF GETTING ANXIOUS COMPLAINING OF SOB DESPITE OF EDUCATION AND EXPLANATIONS WITH SPO2 OF 93-95%. RICKEY MIDLINE INTACT AND PATENT. LEFT FEMORAL HD CATH INTACT WITH DRESSING IN PLACE. RT [id number] CATH INTACT. BED IN LOWEST POSITION, LOCKED. BED ALARM ON. CALL LIGHT WITHIN REACH. IN NO APPARENT DISTRESS.
[2019-05-22 20:00] VITALS: BP 131/68
--- NOTE | 2019-05-23 06:08 | NUR ---
MS RN NOTES AWAKE & RESPONSIVE. NOT IN ANY DISTRESS. NO SOB NOTED. DENIES ANY PAIN OR DISCOMFORT AT THIS TIME. AM CARE DONE. MONITORED ACCORDINGLY. CALL LIGHT WITHIN REACH. BED IN LOWEST POSITION. SR UP X3 WITH BED ALARM ON FOR SAFETY. WILL ENDORSE TO NEXT SHIFT.
[2019-05-23 06:20] LABS: BASOPHILS % (AUTO) 0.1 % (0.0-2.0); EOSINOPHILS % (AUTO) 0.1 % (0.0-6.0); HEMATOCRIT 27 % (39-51); HEMOGLOBIN 8.9 g/dL (13.5-17.5); LYMPHOCYTES # (AUTO) 0.6 /CMM (0.8-4.8); LYMPHOCYTES % (AUTO) 7.6 % (20.0-44.0); MEAN CORPUSCULAR HGB CONC 33 g/dl (31.0-36.0); MEAN CORPUSCULAR VOLUME 93 fL (80-96); MONOCYTES # (AUTO) 0.6 /CMM (0.1-1.30); MONOCYTES % (AUTO) 8.5 % (2.0-12.0); NEUTROPHILS # (AUTO) 6.4 /CMM (1.8-8.9); NEUTROPHILS % (AUTO) 83.7 % (43.0-81.0); PLATELET COUNT (AUTO) 138 /CMM (150-450); RED BLOOD CELL COUNT(AUTO) 2.86 MIL/uL (4.5-6.0); WHITE BLOOD COUNT (AUTO) 7.6 K/uL (4.3-11.0)
[2019-05-23 07:02] LABS: CALCIUM, SERUM 7.8 mg/dL (8.5-10.1); CARBON DIOXIDE 27 mmol/L (21-32); CHLORIDE 101 mmol/L (98-107); CREATININE 1.6 mg/dL (0.6-1.3); GLUCOSE 86 mg/dL (74-106); PHOSPHORUS 3.3 mg/dL (2.5-4.9); SODIUM SERUM 136 mmol/L (136-145); UREA NITROGEN, BLOOD 53 mg/dL (7-18)
--- NOTE | 2019-05-23 07:15 | NUR ---
MS RN NOTES RECEIVED PATIENT IN BED, ASLEEP. AROUSABLE TO VERBAL AND TACTILE STIMULI. HOB ELEVATED. NO SOB OBSERVED. DENIES ANY C/O PAIN NOR DISCOMFORT AT THIS TIME. RICKEY MIDLINE INTACT AND PATENT. LEFT FEMORAL HD CATH INTACT WITH DRESSING IN PLACE. RT [id number] CATH INTACT. BED IN LOWEST POSITION, LOCKED. BED ALARM ON. CALL LIGHT WITHIN REACH. ABLE TO VERBALIZE NEEDS.
[2019-05-23 08:00] VITALS: BP 148/87
[2019-05-23] MEDS: hydrALAZINE HCL 50 MG TABLET PO SCH ×3 (09:00→17:14)
[2019-05-23] MEDS: ISOSORBIDE DINITRATE (20MG) 20 MG TABLET PO SCH ×2 (09:00→17:14)
[2019-05-23] MEDS: CLOTRIMAZOLE 1% 15 GM TUBE TP SCH ×2 (09:37→17:26)
[2019-05-23] MEDS: MUPIROCIN OINT 2% 22 GM TUBE SCH ×2 (09:38→21:29)
[2019-05-23] MEDS: PANTOPRAZOLE 40 MG TABLET.DR PO SCH (09:38)
[2019-05-23] MEDS: methylPREDNISolone SOD SUCC 125 MG/2ML VIAL IV SCH (09:39)
[2019-05-23] MEDS: HEPARIN SODIUM, PORCINE 5000 UNITS/1 ML VIAL SQ SCH (09:40)
[2019-05-23] MEDS: NIFEdipine XL (30MG) 30 MG TAB PO SCH (09:42)
--- NOTE | 2019-05-23 09:54 | NUR ---
MS RN NOTES HELD BP MEDS AWAITING FOR HD
[2019-05-23] MEDS: METOPROLOL SUCCINATE 50 MG TAB.SR.24H PO SCH (10:30)
--- NOTE | 2019-05-23 11:29 | NUR ---
MS RN NOTES HELD METOPROLOL ANTICIPATING HD
--- NOTE | 2019-05-23 13:13 | NUR ---
MS RN NOTES HELD ROSS ANTICIPATING HD
--- NOTE | 2019-05-23 14:54 | NUR ---
MS RN - RECEIVING NOTES Received patient from nurse Rosa, in bed, awake, conscious and cooperative. With O2 at 2 lpm via nasal cannula. With O2 sat 94%. IV line access at left upper arm. Patient has Henson catheter and tea colored.
--- NOTE | 2019-05-23 15:04 | NUR ---
RN - RECEIVED Endorsed by Moe at 14:30.
[2019-05-23 16:00] VITALS: BP 146/84
--- NOTE | 2019-05-23 17:00 | NUR ---
DR WOODS (ONCOLOGIST) CALLED AND ORDERED TO START HEPARIN DRIP ON THE PT WITH NO BOLUS EVEN IF THE PT HAS HGB OF 8.9. DR WOODS WILL CALL THE PHARMACY TO DOSE.
--- NOTE | 2019-05-23 17:20 | NUR ---
DR WOODS INSISTS TO PUT PT ON HEPARIN DRIP SAYING THAT PT'S HGB AND PLATELET IS STABLE TO PUT PT ON HEPARIN DRIP.COORDINATED WITH PHARMACIST,ANDREW FOR HEPARIN DOSING.PT'S LATEST WT IS 150 LBS=68 KG. WE WILL BASED HEPARIN DOSAGE ON 70 KG BODY WT. WITH CHARGE NURSE,NOLAN TO DOUBLE CHECK THE HEPARIN COMPUTATION.
--- NOTE | 2019-05-23 17:38 | NUR ---
MS RN NOTES BP= 122/68 and HR= 78. Apresoline 50 mg/tab given.
--- NOTE | 2019-05-23 18:19 | NUR ---
AWAITING FOR STAT PTT RESULT WHICH IS STILL PENDING AT THIS TIME.
--- NOTE | 2019-05-23 18:24 | NUR ---
MS RN - END OF SHIFT Endorsed patient to bi lead nurse in bed, awake, afebrile, conscious, and cooperative. With O2 at 2lpm via nasal cannula, O2 sat at 95%. Patient has Henson catheter with tea colored urine. Patient has IV access at upper left arm and also have left femoral HD cath.
--- NOTE | 2019-05-23 18:34 | NUR ---
PTT RESULT 44.1 WHICH IS SUBTHERAPEUTIC LEVEL PER PHARMACISTANDREW AND HAS TO START HEPARIN AND ORDERED PTT LEVEL POST 6 HRS ADMINISTRATION.
[2019-05-23] MEDS: HEPARIN INFUSION/D5W 500 ML IV PRN (18:49)
--- NOTE | 2019-05-23 18:51 | NUR ---
MS RN -WRONG ENRTY Regarding patient's Heparin drip. I accidentally click left femoral. Heparin drip started at left upper arm at 25 ml/hr.
--- NOTE | 2019-05-23 19:00 | NUR ---
STARTED HEPARIN DRIP AT 1900 RUNNING AT 1250 UNITS/KG= 25 MLS/HR. ORDERED PTT LAB POST 6 HRS OF HEPARIN INFUSION AT 1AM 05/24/2019.
--- NOTE | 2019-05-23 19:30 | NUR ---
MS RN RECEIVE PT IN BED A/O X 3 HEPARIN DRIP RUNNING @ 1250 UNITS/KG =25MLS/HR RESPIRATIONS EVEN AND UNLABORED, NO S/S OF DISTRESS, STABLE. SAFETY MEASURES AT ALL TIMES. WILL CONT TO MONITOR,
[2019-05-23 20:00] VITALS: BP 105/67
--- NOTE | 2019-05-24 00:57 | NUR ---
DIRECTOR BUSINESS INTELLIGENCE CAME TO DRAW BLOOD
--- NOTE | 2019-05-24 01:17 | NUR ---
AWAITING RESULT STILL PENDING PTT
--- NOTE | 2019-05-24 01:38 | NUR ---
FF UP PENDING PTT. CALLED LAB. PER LAB STILL AWAITING RESULTS. WILL CONTINUE TO MONITOR
--- NOTE | 2019-05-24 01:42 | NUR ---
LAB CALLED PTT RESULTS 127.4 HELD HEPARIN DRIP FOR 1 HOUR PER PROTOCOL
--- NOTE | 2019-05-24 01:42 | NUR ---
PTT 124.7 HOLD HEPARIN DRIP FOR ONE HOUR THEN DECREASE DRIP BY 3 UNITS/KG/HR EQUIVALENT TO 200 UNITS = 1050 UNITS @ 21 CC/HR. REPEAT PTT @ 0842 AM PER HEPARIN PROTOCOL
--- NOTE | 2019-05-24 06:14 | NUR ---
MS RN ASLEEP AND EASILY AWAKEN, SLEPT WELL, HEPARIN DRIP INFUSING 1050 UNITS= 21 MLS/HR. NO S/S OF BLEEDING NOTED. KEPT CLEAN, DRY AND COMFORTABLE, ALL NEEDS ATTENDED AND ANTICIPATED. SAFETY MEASURES AT ALL TIMES. WILL ENDORSE TO NEXT SHIFT.
[2019-05-24 06:24] LABS: EOSINOPHILS % (AUTO) 0.2 % (0.0-6.0); HEMATOCRIT 24 % (39-51); HEMOGLOBIN 8.1 g/dL (13.5-17.5); LYMPHOCYTES # (AUTO) 0.5 /CMM (0.8-4.8); LYMPHOCYTES % (AUTO) 7.7 % (20.0-44.0); MEAN CORPUSCULAR HGB CONC 33 g/dl (31.0-36.0); MEAN CORPUSCULAR VOLUME 93 fL (80-96); MONOCYTES # (AUTO) 0.6 /CMM (0.1-1.30); MONOCYTES % (AUTO) 9.2 % (2.0-12.0); NEUTROPHILS # (AUTO) 5.7 /CMM (1.8-8.9); NEUTROPHILS % (AUTO) 82.9 % (43.0-81.0); PLATELET COUNT (AUTO) 154 /CMM (150-450); RED BLOOD CELL COUNT(AUTO) 2.62 MIL/uL (4.5-6.0); WHITE BLOOD COUNT (AUTO) 6.9 K/uL (4.3-11.0)
[2019-05-24 06:41] LABS: CALCIUM, SERUM 7.9 mg/dL (8.5-10.1); CARBON DIOXIDE 27 mmol/L (21-32); CHLORIDE 100 mmol/L (98-107); CREATININE 1.6 mg/dL (0.6-1.3); GLUCOSE 90 mg/dL (74-106); PHOSPHORUS 3.9 mg/dL (2.5-4.9); POTASSIUM 3.9 mmol/L (3.5-5.1); SODIUM SERUM 134 mmol/L (136-145); UREA NITROGEN, BLOOD 65 mg/dL (7-18)
--- NOTE | 2019-05-24 06:57 | NUR ---
MS RN PT'S PTT IS 137.7 FOR 0500 LAB DRAW. WILL MONITOR PT. PTT AT 0842 FOR HEPARIN PROTOCOL PT NO S/S OF BLEEDING
[2019-05-24 08:00] VITALS: BP 147/85
--- NOTE | 2019-05-24 08:00 | NUR ---
MS RN PT IS COMFORTABLY SLEEPING AND EASILY AWAKEN, WITH 02 AT 2L/MIN VIA NC. ON HEPARIN DRIP INFUSING 1050 UNITS= 21 MLS/HR. NO S/S OF ACTIVE BLEEDING NOTED. DENIES PAIN OR DISTRESS. KEPT CLEAN, DRY AND COMFORTABLE, SAFETY MEASURES AT ALL TIMES. CALL LIGHT PLACED WITHIN REACH.
[2019-05-24] MEDS: ISOSORBIDE DINITRATE (20MG) 20 MG TABLET PO SCH ×2 (08:24→17:15)
[2019-05-24] MEDS: methylPREDNISolone SOD SUCC 125 MG/2ML VIAL IV SCH (08:24)
[2019-05-24] MEDS: NIFEdipine XL (30MG) 30 MG TAB PO SCH (08:25)
[2019-05-24] MEDS: hydrALAZINE HCL 50 MG TABLET PO SCH (08:25)
[2019-05-24] MEDS: PANTOPRAZOLE 40 MG TABLET.DR PO SCH (08:25)
--- NOTE | 2019-05-24 08:50 | NUR ---
PT'S PTT IS 131.5.HELD PT'S HEPARIN DRIP AND PAGEDarshan CRAVEN.AWAITING FOR MD TO RETURN CALL.. Addendum: 05/24/19 at 1155 by TRUDY ESPINAL RN LAB PERSONNEL CALLED ACTUAL PTT 131.5 RESULT AT 0920
[2019-05-24] MEDS: CLOTRIMAZOLE 1% 15 GM TUBE TP SCH ×2 (09:02→17:15)
[2019-05-24] MEDS: MUPIROCIN OINT 2% 22 GM TUBE SCH ×2 (09:03→21:19)
--- NOTE | 2019-05-24 09:20 | NUR ---
LAB PERSONNEL CALLED IN THE PTT RESULT OF 131.5 AT 0920 FOR THE PTT DUE AT 0850. PTT RESULT IN THE COMPUTER WAS STILL PENDING WHEN LAB PERSONNEL CALLED.
[2019-05-24] MEDS: METOPROLOL SUCCINATE 50 MG TAB.SR.24H PO SCH (10:09)
--- NOTE | 2019-05-24 11:30 | NUR ---
DR CRAVEN RETURNED CALL WITH ORDERS TO HOLD HEPARIN DRIP FOR 2 HOURS AND DECREASED TO 3 UNITS/KG FROM PREVIOUS DOSE. PRESENT DOSE IS 850 UNITS/KG/HR = 17 MLS/HR AND REPEAT PTT AT 1730. HEPARIN DRIP WAS HELD SINCE 929.
[2019-05-24] MEDS: HEPARIN INFUSION/D5W 500 ML IV PRN (11:37)
--- NOTE | 2019-05-24 12:16 | NUR ---
PT ON HEPARIN DRIP WITH NO ACTIVE BLEEDING NOTED.PT DENIES ANY PAIN OR DISTRESS.WILL CONTINUE TO MONITOR.
[2019-05-24] MEDS ORDERED: EPOETIN ALFA (20,000 UNIT) 20,000 UNIT/ML VIAL SQ ONE (13:00)
[2019-05-24] MEDS: CLONIDINE HCL 0.3 MG/24H PTWK 1 EA PATCH TD SCH (13:57)
[2019-05-24 16:00] VITALS: BP 127/73
--- NOTE | 2019-05-24 17:16 | NUR ---
Lab's recycling operator just finished drawing the blood for PTT at this time.
--- NOTE | 2019-05-24 19:29 | NUR ---
PT ON HEPARIN DRIP WITH NO ACTIVE BLEEDING NOTED.PT DENIES ANY PAIN OR DISTRESS.WILL CONTINUE TO MONITOR.
[2019-05-24 20:00] VITALS: BP 133/74
--- NOTE | 2019-05-24 22:14 | NUR ---
MS/RN AT INITIAL ROUNDING AT ABOUT 1945, PATIENT WAS AWAKE, ALERT, ORIENTED, COMFORTABLE, NO C/O PAIN, NO DISTRESS NOTED, CALL LIGHT IN REACH, HEPARIN DRIP, WILL MONITOR.
[2019-05-25] MEDS: HEPARIN INFUSION/D5W 500 ML IV PRN (00:55)
[2019-05-25 05:30] LABS: BASOPHILS % (AUTO) 0.1 % (0.0-2.0); HEMATOCRIT 23 % (39-51); HEMOGLOBIN 7.6 g/dL (13.5-17.5); LYMPHOCYTES # (AUTO) 0.5 /CMM (0.8-4.8); LYMPHOCYTES % (AUTO) 8.5 % (20.0-44.0); MEAN CORPUSCULAR HGB CONC 33 g/dl (31.0-36.0); MEAN CORPUSCULAR VOLUME 94 fL (80-96); MONOCYTES # (AUTO) 0.6 /CMM (0.1-1.30); MONOCYTES % (AUTO) 10.2 % (2.0-12.0); NEUTROPHILS # (AUTO) 5.1 /CMM (1.8-8.9); NEUTROPHILS % (AUTO) 81.2 % (43.0-81.0); PLATELET COUNT (AUTO) 165 /CMM (150-450); RED BLOOD CELL COUNT(AUTO) 2.43 MIL/uL (4.5-6.0); WHITE BLOOD COUNT (AUTO) 6.3 K/uL (4.3-11.0)
[2019-05-25 05:47] LABS: ALANINE AMINOTRANSFERASE 26 U/L (12-78); ALBUMIN 1.5 g/dL (3.4-5.0); ALKALINE PHOSPHATASE 82 U/L (46-116); ASPARTATE AMINOTRANSFERASE 26 U/L (15-37); BILIRUBIN,TOTAL 0.4 mg/dL (0.2-1.0); CALCIUM, SERUM 7.6 mg/dL (8.5-10.1); CARBON DIOXIDE 26 mmol/L (21-32); CHLORIDE 100 mmol/L (98-107); CREATININE 1.7 mg/dL (0.6-1.3); GLUCOSE 99 mg/dL (74-106); MAGNESIUM 1.8 mg/dL (1.8-2.4); PHOSPHORUS 4.3 mg/dL (2.5-4.9); POTASSIUM 4.1 mmol/L (3.5-5.1); SODIUM SERUM 134 mmol/L (136-145); TOTAL PROTEIN, SERUM 4.3 g/dL (6.4-8.2); UREA NITROGEN, BLOOD 75 mg/dL (7-18)
[2019-05-25 06:32] LABS: IRON, SERUM 77 ug/dl (50-175); TOTAL IRON BINDING CAPACITY 102 ug/dl (250-450)
--- NOTE | 2019-05-25 06:55 | NUR ---
MS/RN PATIENT IS STILL SLEEPING AT THIS NTIME, APPEAR COMFORTABLE, NO SIGNS OF DISTRESS NOTED, HEPARIN DRIP INFUSING, ALL NEEDS ATTENDED AT THIS TIME, WILL CONTINUE TO MONITOR.
[2019-05-25 08:00] VITALS: BP 150/78
[2019-05-25] MEDS: METOPROLOL SUCCINATE 50 MG TAB.SR.24H PO SCH (08:56)
[2019-05-25] MEDS: methylPREDNISolone SOD SUCC 125 MG/2ML VIAL IV SCH (08:56)
[2019-05-25] MEDS: NIFEdipine XL (30MG) 30 MG TAB PO SCH (08:56)
[2019-05-25] MEDS: PANTOPRAZOLE 40 MG TABLET.DR PO SCH (08:56)
[2019-05-25] MEDS: MUPIROCIN OINT 2% 22 GM TUBE SCH ×2 (08:57→21:48)
[2019-05-25] MEDS: ISOSORBIDE DINITRATE (20MG) 20 MG TABLET PO SCH ×2 (08:57→17:14)
--- NOTE | 2019-05-25 09:03 | NUR ---
Heparin drip stopped per dr. Fuller
[2019-05-25] MEDS: CLOTRIMAZOLE 1% 15 GM TUBE TP SCH ×2 (14:26→18:07)
[2019-05-25 16:00] VITALS: BP 130/78
--- NOTE | 2019-05-25 18:41 | NUR ---
PT IS COMFORTABLY SLEEPING AND EASILY AWAKEN, WITH 02 AT 2L/MIN VIA NC. NO S/S OF ACTIVE BLEEDING NOTED. DENIES PAIN OR DISTRESS. KEPT CLEAN, DRY AND COMFORTABLE, SAFETY MEASURES AT ALL TIMES. CALL LIGHT PLACED WITHIN REACH.WILL ENDORSE TO NEXT SHIFT FOR ELVIA.
--- NOTE | 2019-05-25 19:10 | NUR ---
MS RN NOTES RECEIVED PT IN BED AWAKE AND ABLE TO MAKE NEEDS KNOWN. PT A/O X3 UZBEK/SOMALI SPEAKING. RESPIRATIONS EVEN AND UNLABORED WITH NO S/S OF ACUTE DISTRESS OR SOB NOTED. PT NOTED WITH RICKEY MIDLINE PATENT AND INTACT AND SL. PT NOTED WITH FC, DRAINING WELL. SAFETY MEASURES IN PLACE WITH BED IN LOWEST LOCKED POSITION WITH SIDE RAILS UP X2. CALL LIGHT WITHIN REACH. WILL CONTINUE TO MONITOR.
--- NOTE | 2019-05-25 19:30 | NUR ---
MS RN NOTES PT REFUSED PHOTOS TO BE TAKEN. WILL CONTINUE TO MONITOR.
[2019-05-25 20:00] VITALS: BP 142/74
[2019-05-26 07:03] LABS: BASOPHILS % (AUTO) 0.1 % (0.0-2.0); EOSINOPHILS % (AUTO) 0.1 % (0.0-6.0); HEMATOCRIT 25 % (39-51); HEMOGLOBIN 8.3 g/dL (13.5-17.5); LYMPHOCYTES # (AUTO) 0.6 /CMM (0.8-4.8); LYMPHOCYTES % (AUTO) 10.1 % (20.0-44.0); MEAN CORPUSCULAR HGB CONC 33 g/dl (31.0-36.0); MEAN CORPUSCULAR VOLUME 94 fL (80-96); MONOCYTES # (AUTO) 0.7 /CMM (0.1-1.30); MONOCYTES % (AUTO) 11.3 % (2.0-12.0); NEUTROPHILS # (AUTO) 4.8 /CMM (1.8-8.9); NEUTROPHILS % (AUTO) 78.4 % (43.0-81.0); PLATELET COUNT (AUTO) 163 /CMM (150-450); RED BLOOD CELL COUNT(AUTO) 2.69 MIL/uL (4.5-6.0); WHITE BLOOD COUNT (AUTO) 6.1 K/uL (4.3-11.0)
[2019-05-26 07:17] LABS: CALCIUM, SERUM 7.7 mg/dL (8.5-10.1); CARBON DIOXIDE 27 mmol/L (21-32); CHLORIDE 101 mmol/L (98-107); CREATININE 1.4 mg/dL (0.6-1.3); GLUCOSE 77 mg/dL (74-106); MAGNESIUM 1.7 mg/dL (1.8-2.4); PHOSPHORUS 3.8 mg/dL (2.5-4.9); POTASSIUM 3.7 mmol/L (3.5-5.1); SODIUM SERUM 136 mmol/L (136-145); UREA NITROGEN, BLOOD 72 mg/dL (7-18)
--- NOTE | 2019-05-26 07:20 | NUR ---
MS RN NOTES PT IN BED AWAKE AND ABLE TO MAKE NEEDS KNOWN. PT A/O X3 GREEK/UZBEK SPEAKING. RESPIRATIONS EVEN AND UNLABORED WITH NO S/S OF ACUTE DISTRESS OR SOB NOTED THROUGHOUT SHIFT. PT NOTED WITH RICKEY MIDLINE PATENT AND INTACT AND SL. PT NOTED WITH FC, DRAINING WELL. PT KEPT CLEAN, DRY, AND COMFORTABLE. SAFETY MEASURES IN PLACE WITH BED IN LOWEST LOCKED POSITION WITH SIDE RAILS UP X2. CALL LIGHT WITHIN REACH. WILL ENDORSE TO ONCOMING NURSE FOR ELVIA.
[2019-05-26 08:00] VITALS: BP 160/84
[2019-05-26] MEDS: methylPREDNISolone SOD SUCC 125 MG/2ML VIAL IV SCH (08:51)
[2019-05-26] MEDS: NIFEdipine XL (30MG) 30 MG TAB PO SCH (08:51)
[2019-05-26] MEDS: PANTOPRAZOLE 40 MG TABLET.DR PO SCH (08:52)
[2019-05-26] MEDS: METOPROLOL SUCCINATE 50 MG TAB.SR.24H PO SCH (08:52)
[2019-05-26] MEDS: CLOTRIMAZOLE 1% 15 GM TUBE TP SCH ×2 (08:53→17:26)
[2019-05-26] MEDS: ISOSORBIDE DINITRATE (20MG) 20 MG TABLET PO SCH ×2 (08:53→17:27)
[2019-05-26] MEDS: MUPIROCIN OINT 2% 22 GM TUBE SCH ×2 (08:53→21:15)
[2019-05-26] MEDS: Magnesium 1GM/D5W 100ML PREMIX 100 ML IV SCH ×2 (11:04→12:58)
--- NOTE | 2019-05-26 12:00 | NUR ---
MS RN NOTES RECEIVED PATIENT FOR CONTINUATION OF CARE. RESTING COMFORTABLY IN BED WATCHING TV. CALL LIGHT WITHIN REACH.
[2019-05-26 16:00] VITALS: BP 116/68
--- NOTE | 2019-05-26 16:00 | NUR ---
MS RN NOTES RECEIVED A CALL FROM [facility] (NIECE) STATING THAT THEY DON'T WANT PATIENT TO HAVE BIOPSY AT THIS TIME. FAMILY BROUGHT BODY SCAN CD PREVIOUSLY DONE AND PLACED IN CHART.
--- NOTE | 2019-05-26 19:00 | NUR ---
MS RN NOTES PATIENT RESTING COMFORTABLY IN BED WATCHING TV. HOB ELEVATED. NO SOB OBSERVED. DENIES ANY C/O PAIN NOR DISCOMFORT AT THIS TIME. RICKEY MIDLINE INTACT AND PATENT. LEFT FEMORAL HD CATH INTACT WITH DRESSING IN PLACE. RT [id number] CATH INTACT. BED IN LOWEST POSITION, LOCKED. BED ALARM ON. CALL LIGHT WITHIN REACH. ABLE TO VERBALIZE NEEDS. IN NO APPARENT DISTRESS.
--- NOTE | 2019-05-26 19:45 | NUR ---
MS RN OPENING NOTES RECEIVED PATIENT IN BED ALERT AND ORIENTED X 3. VERBALLY RESPONSIVE PARAGUAYAN SPEAKING AND ABLE TO FOLLOW DIRECTIONS. BREATHING REGULAR AND UNLABORED ON OXYGEN AT 2L/MIN VIA NASAL CANNULA. LEFT UPPER ARM MIDLINE PATENT AND INTACT, FLUSHING WELL WITH NO BLEEDING OR S/S OF INFECTION/INFILTRATION NOTED. SCHNEIDER CATH INTACT DRAINING WELL WITH MODERATE CLEAR TEA COLORED OUTPUT ON BAG. NO COMPLAINTS OF PAIN/DISCOMFORT REPORTED OF NOW. BED LOW AND LOCKED ON SEMI FOWLERS POSITION. CALL LIGHT IN REACH. WILL CONTINUE TO MONITOR.
[2019-05-26 20:00] VITALS: BP 131/67
[2019-05-26 22:00] VITALS: BP 131/67
--- NOTE | 2019-05-27 06:00 | NUR ---
MS RN NOTES WOUND TREATMENT PROVIDED. REPOSITIONED ON HIS BACK. LEFT GROIN HD CATH DRESSING CHANGED WITH NO BLEEDING OR S/S OF INFECTION NOTED.
--- NOTE | 2019-05-27 06:30 | NUR ---
MS RN CLOSING NOTES PATIENT IN BED ALERT AND ORIENTED X 3. BREATHING REGULAR AND UNLABORED ON OXYGEN AT 2L/MIN VIA NASAL CANNULA. LEFT UPPER ARM MIDLINE PATENT AND FLUSHING WELL. SCHNEIDER CATH INTACT DRAINING WELL WITH 675CC CLEAR TEA COLORED URINE. NO COMPLAINTS OF PAIN/DISCOMFORT REPORTED THE WHOLE SHIFT. BED LOW AND LOCKED ON SEMI FOWLERS POSITION. CALL LIGHT IN REACH. WILL ENDORSE TO MORNING SHIFT FOR ELVIA.
[2019-05-27 06:34] LABS: BASOPHILS % (AUTO) 0.1 % (0.0-2.0); EOSINOPHILS % (AUTO) 0.4 % (0.0-6.0); HEMATOCRIT 25 % (39-51); HEMOGLOBIN 8.2 g/dL (13.5-17.5); LYMPHOCYTES # (AUTO) 0.7 /CMM (0.8-4.8); LYMPHOCYTES % (AUTO) 10.5 % (20.0-44.0); MEAN CORPUSCULAR HGB CONC 33 g/dl (31.0-36.0); MEAN CORPUSCULAR VOLUME 95 fL (80-96); MONOCYTES # (AUTO) 0.6 /CMM (0.1-1.30); MONOCYTES % (AUTO) 9.4 % (2.0-12.0); NEUTROPHILS # (AUTO) 5.3 /CMM (1.8-8.9); NEUTROPHILS % (AUTO) 79.6 % (43.0-81.0); PLATELET COUNT (AUTO) 157 /CMM (150-450); RED BLOOD CELL COUNT(AUTO) 2.62 MIL/uL (4.5-6.0); WHITE BLOOD COUNT (AUTO) 6.6 K/uL (4.3-11.0)
[2019-05-27 06:39] LABS: CALCIUM, SERUM 7.7 mg/dL (8.5-10.1); CREATININE 1.3 mg/dL (0.6-1.3); PHOSPHORUS 3.4 mg/dL (2.5-4.9); POTASSIUM 3.9 mmol/L (3.5-5.1)
[2019-05-27 08:00] VITALS: BP 142/71
[2019-05-27] MEDS ORDERED: predniSONE 50 MG TABLET PO SCH (09:00)
[2019-05-27] MEDS: predniSONE 20 MG TABLET PO SCH (09:32)
[2019-05-27] MEDS: PANTOPRAZOLE 40 MG TABLET.DR PO SCH (09:34)
[2019-05-27] MEDS: CLOTRIMAZOLE 1% 15 GM TUBE TP SCH ×2 (09:35→18:30)
[2019-05-27] MEDS: MUPIROCIN OINT 2% 22 GM TUBE SCH ×2 (09:40→21:31)
[2019-05-27] MEDS: ISOSORBIDE DINITRATE (20MG) 20 MG TABLET PO SCH ×2 (10:03→18:28)
--- NOTE | 2019-05-27 10:30 | NUR ---
dr. curtis in and removed dialysis cath of [facility].kj. to site.
[2019-05-27] MEDS: NIFEdipine XL (30MG) 30 MG TAB PO SCH (11:37)
--- NOTE | 2019-05-27 12:53 | NUR ---
URINE IN SCHNEIDER REMAINS DARK RYAN IN COLOR.PT. WITHOUT COMPLAINTS.
--- NOTE | 2019-05-27 14:28 | NUR ---
lt. groin dressing dry and intact.pt. comfortable,in no acute distress.
[2019-05-27 16:00] VITALS: BP 132/72
[2019-05-27] MEDS: METOPROLOL SUCCINATE 50 MG TAB.SR.24H PO SCH (16:29)
--- NOTE | 2019-05-27 16:53 | NUR ---
DR. OVERTON IN TO SEE PT. HE SPOKE WITH DR. WOODS.
--- NOTE | 2019-05-27 19:20 | NUR ---
RN OPEN NOTES RECEIVED PATIENT AWAKE IN BED. A/OX3. NO SIGNS OF DISTRESS OR DISCOMFORT. BREATHING EVEN AND UNLABORED. ON 2LPM O2 VIA NC. HAS RICKEY MIDLINE, PATENT AND INTACT, NO SIGNS OF REDNESS OR INFILTRATION. HAS RCW PERMACATH INTACT. HAS F/C INTACT DRAINING CLEAR RYAN FLUID. BED IN LOW LOCKED POSITION WITH SIDE RAILS X2. CALL LIGHT WITHIN REACH. WILL CONTINUE TO MONITOR.
[2019-05-27 20:00] VITALS: BP 114/69
[2019-05-27] MEDS: HEPARIN SODIUM, PORCINE 5000 UNITS/1 ML VIAL SQ SCH (21:30)
--- NOTE | 2019-05-28 06:35 | NUR ---
RN CLOSING NOTES PATIENT RESTING IN BED, EASILY AROUSABLE. A/OX3. NO SIGNS OF DISTRESS OR DISCOMFORT. BREATHING EVEN AND UNLABORED. ON 2LPM O2 VIA NC. HAS RICKEY MIDLINE, PATENT AND INTACT, NO SIGNS OF REDNESS OR INFILTRATION. HAS RCW PERMACATH INTACT. HAS F/C INTACT DRAINING CLEAR RYAN FLUID. ALL NEEDS MET. NO SIGNIFICANT CHANGES THROUGH THE NIGHT. PATIENT REPOSITIONED Q2H AND PRN. BED IN LOW LOCKED POSITION WITH SIDE RAILS X2. CALL LIGHT WITHIN REACH. WILL ENDORSE TO AM SHIFT FOR ELVIA.
[2019-05-28 06:36] LABS: CALCIUM, SERUM 7.7 mg/dL (8.5-10.1); CREATININE 1.2 mg/dL (0.6-1.3); EOSINOPHILS % (AUTO) 0.4 % (0.0-6.0); HEMATOCRIT 26 % (39-51); HEMOGLOBIN 8.7 g/dL (13.5-17.5); LYMPHOCYTES # (AUTO) 0.6 /CMM (0.8-4.8); LYMPHOCYTES % (AUTO) 9.8 % (20.0-44.0); MAGNESIUM 1.8 mg/dL (1.8-2.4); MEAN CORPUSCULAR HGB CONC 34 g/dl (31.0-36.0); MEAN CORPUSCULAR VOLUME 95 fL (80-96); MONOCYTES # (AUTO) 0.5 /CMM (0.1-1.30); MONOCYTES % (AUTO) 8.3 % (2.0-12.0); NEUTROPHILS % (AUTO) 81.5 % (43.0-81.0); PHOSPHORUS 3.3 mg/dL (2.5-4.9); PLATELET COUNT (AUTO) 158 /CMM (150-450); WHITE BLOOD COUNT (AUTO) 6.1 K/uL (4.3-11.0)
--- NOTE | 2019-05-28 07:40 | NUR ---
ms rn received on bed, awake,alert,oriented x3,not in nay distress, respirations even and unlabored,no sob noted, lungs are diminish,abdomen soft,positive bowel sounds,denies pain at this time. all needs attended.
[2019-05-28 08:00] VITALS: BP 116/84
[2019-05-28] MEDS: PANTOPRAZOLE 40 MG TABLET.DR PO SCH (09:06)
[2019-05-28] MEDS: predniSONE 20 MG TABLET PO SCH (09:07)
[2019-05-28] MEDS: ISOSORBIDE DINITRATE (20MG) 20 MG TABLET PO SCH ×2 (09:07→17:00)
[2019-05-28] MEDS: NIFEdipine XL (30MG) 30 MG TAB PO SCH (09:07)
[2019-05-28] MEDS: HEPARIN SODIUM, PORCINE 5000 UNITS/1 ML VIAL SQ SCH (09:08)
--- NOTE | 2019-05-28 09:20 | NUR ---
ms guerrero breakfast served,due meds given,tolerated well.
[2019-05-28] MEDS: MUPIROCIN OINT 2% 22 GM TUBE SCH (09:26)
[2019-05-28] MEDS: CLOTRIMAZOLE 1% 15 GM TUBE TP SCH ×2 (09:27→17:47)
[2019-05-28] MEDS: METOPROLOL SUCCINATE 50 MG TAB.SR.24H PO SCH (10:40)
[2019-05-28] MEDS ORDERED: HEPA50008 SQ (10:59)
[2019-05-28] MEDS ORDERED: PRED20TA PO (10:59)
[2019-05-28] MEDS ORDERED: NIFE-35 PO (10:59)
[2019-05-28] MEDS ORDERED: PANT40TA2 PO (10:59)
[2019-05-28] MEDS ORDERED: ISOS20TA8 PO (10:59)
[2019-05-28] MEDS ORDERED: HYDR-3972 PO (10:59)
[2019-05-28] MEDS ORDERED: CLOT15CR35 TP (10:59)
--- NOTE | 2019-05-28 11:00 | NUR ---
ms rn patient's family refused to be discharge not untill family talk w/ dr. velazquez.
--- NOTE | 2019-05-28 16:00 | NUR ---
ms rn patient supposed to go to [facility] but they changed it to [facility],, family is aware.
[2019-05-28 17:00] VITALS: BP 118/69
--- NOTE | 2019-05-28 18:00 | NUR ---
ms rn called to [facility] gave report to alisha.patient ready, refused to take pictures at [facility] and f groin.
--- NOTE | 2019-05-28 18:50 | NUR ---
ms rn patient was transferred to [facility].
== END 2019-05-28 19:05 | DRG 871 ==
LOC: ER 13:06 → TELE1 16:55 → MEDSG1 21:01 → ICU 04-28 14:25 → TELE-TD 05-05 20:03 → TELE1 05-06 11:47 → MEDSG1 05-13 10:05 → TELE1 05-13 10:06 → MEDSG1 05-15 08:12 → MEDSG2 05-20 18:43 → MED 05-22 11:36 → MEDSG2 05-28 16:37
PROVIDERS: ADMIT Nurse Practitioner Acute Care; ATTEND Student in an Organized Health Care Education/Training Program
PROC: 30233N1 Transfusion of Nonautologous Red Blood Cells into Peripheral Vein, Percutaneous Approach (ICD-10-PCS; 2019-04-29)
PROC: 5A1D70Z Performance of Urinary Filtration, Intermittent, Less than 6 Hours Per Day (ICD-10-PCS; 2019-04-29)
PROC: 0DJ08ZZ Inspection of Upper Intestinal Tract, Via Natural or Artificial Opening Endoscopic (ICD-10-PCS; 2019-04-30)
PROC: 30233K1 Transfusion of Nonautologous Frozen Plasma into Peripheral Vein, Percutaneous Approach (ICD-10-PCS; 2019-04-30)
PROC: 30233M1 Transfusion of Nonautologous Plasma Cryoprecipitate into Peripheral Vein, Percutaneous Approach (ICD-10-PCS; 2019-04-30)
PROC: 5A09457 Assistance with Respiratory Ventilation, 24-96 Consecutive Hours, Continuous Positive Airway Pressure (ICD-10-PCS; principal; 2019-05-02)
PROC: 30233R1 Transfusion of Nonautologous Platelets into Peripheral Vein, Percutaneous Approach (ICD-10-PCS; 2019-05-06)
PROC: 05H933Z Insertion of Infusion Device into Right Brachial Vein, Percutaneous Approach (ICD-10-PCS; 2019-05-26)
DX: A41.02 Sepsis due to Methicillin resistant Staphylococcus aureus (principal); I26.99 Other pulmonary embolism without acute cor pulmonale; J96.01 Acute respiratory failure with hypoxia; J15.9 Unspecified bacterial pneumonia; K66.1 Hemoperitoneum; E44.0 Moderate protein-calorie malnutrition; E87.1 Hypo-osmolality and hyponatremia; C18.9 Malignant neoplasm of colon, unspecified; D68.59 Other primary thrombophilia; N17.9 Acute kidney failure, unspecified; B37.49 Other urogenital candidiasis; I50.30 Unspecified diastolic (congestive) heart failure; J98.11 Atelectasis; E87.2 Acidosis; J90 Pleural effusion, not elsewhere classified; I82.611 Acute embolism and thrombosis of superficial veins of right upper extremity; D62 Acute posthemorrhagic anemia; R18.8 Other ascites; E78.5 Hyperlipidemia, unspecified; Z85.72 Personal history of non-Hodgkin lymphomas; E86.9 Volume depletion, unspecified; D64.9 Anemia, unspecified; Z79.82 Long term (current) use of aspirin; Z79.899 Other long term (current) drug therapy; D63.8 Anemia in other chronic diseases classified elsewhere; Z92.21 Personal history of antineoplastic chemotherapy; D69.6 Thrombocytopenia, unspecified; E87.6 Hypokalemia; F41.9 Anxiety disorder, unspecified; I10 Essential (primary) hypertension; I70.0 Atherosclerosis of aorta; N28.1 Cyst of kidney, acquired; K80.20 Calculus of gallbladder without cholecystitis without obstruction; K76.0 Fatty (change of) liver, not elsewhere classified; R65.20 Severe sepsis without septic shock; Z99.2 Dependence on renal dialysis; Z87.01 Personal history of pneumonia (recurrent); Z86.718 Personal history of other venous thrombosis and embolism; Z86.711 Personal history of pulmonary embolism; K29.70 Gastritis, unspecified, without bleeding; K20.9 Esophagitis, unspecified; K29.80 Duodenitis without bleeding; K40.90 Unilateral inguinal hernia, without obstruction or gangrene, not specified as recurrent; K59.00 Constipation, unspecified
CPT/HCPCS: 36410; 36415; 36600; 71045-TC; 74178; 76700-TC; 76770-TC; 78582; 80048-TC; 80053-TC; 80061-TC; 80076-TC; 80202-TC; 81000-TC; 82570-TC; 82728-TC; 82803-TC; 82962-TC; 83516; 83520; 83540-TC; 83605-TC; 83735-TC; 83880; 83970; 84100-TC; 84155; 84155-TC; 84156; 84165; 84166; 84300-TC; 84443-TC; 84484-TC; 84550-TC; 85025-TC; 85027-TC; 85385-TC; 85610-TC; 85652-TC; 85730-TC; 86225; 86235; 86256; 86706; 86803; 86850-TC; 86921-TC; 87040-TC; 87081-TC; 87086-TC; 87340; 90935-TC; 92526; 92611-TC; 93307-TC; 93970-TC; 94760-TC; 94799-TC; 97110-TC; 97112-TC; 97116-TC; 97530-TC; A4216; A4217; A4349; A6403; A9540; A9567; C1750; C9113; G0378; J0360; J0456; J0692; J0696; J0885; J1450; J1644; J1940; J2020; J2060; J2185; J2250; J2270; J2310; J2405; J2704; J2930; J3010; J3370; J3430; J3475; J3490; J7030; J7040; J7050; J7060; J7070; P9012; P9016-BL; P9017-BL; P9034-BL; Q9967